=== PATIENT | male | born 1950 | race Caucasian/White ===

== ENCOUNTER 2016-08-17 10:41 | Emergency (ER) | payer MEDICARE ==
[2016-08-17 10:58] VITALS: RESP 18
--- NOTE | 2016-08-17 11:22 | ED ---
General Adult HPI - General Chief complaint: Back Pain/Injury Stated complaint: Back pain Time Seen by Provider: 08/17/16 11:10 Source: patient, family, RN notes reviewed Mode of arrival: ambulatory Limitations: no limitations - History of Present Illness Initial comments: Patient is a pleasant 66-year-old male presenting to the emergency department complaining of back pain. Onset of symptoms was yesterday morning. Symptoms were worse this morning. Symptoms are positional. Discomfort is mid lower back. No trauma. No hematuria. Patient states there has been a minimal odor to his urine over the past week. No fevers. No abdominal discomfort. No constipation or diarrhea. - Related Data Home Medications Medication Instructions Recorded Confirmed Allopurinol 300 mg PO DAILY 12/18/13 08/17/16 Lisinopril 10 mg PO HS 12/18/13 08/17/16 Folic Acid 1 mg PO HS 08/17/16 08/17/16 Ibuprofen [Motrin] 400 mg PO Q6HR PRN 08/17/16 08/17/16 Methotrexate Sodium [Methotrexate] 12.5 mg PO MANCUSO 08/17/16 08/17/16 Simvastatin [Zocor] 20 mg PO HS 08/17/16 08/17/16 amLODIPine [Norvasc] 5 mg PO DAILY 08/17/16 08/17/16 Previous Rx's Medication Instructions Recorded traMADol HCl [Ultram] 50 mg PO Q6H PRN #20 tab 08/17/16 Allergies Allergy/AdvReac Type Severity Reaction Status Date / Time No Known Allergies Allergy Verified 08/17/16 11:12 Review of Systems ROS Statement: Those systems with pertinent positive or pertinent negative responses have been documented in the HPI. ROS Other: All systems not noted in ROS Statement are negative. Constitutional: Denies: fever Eyes: Denies: eye pain ENT: Denies: ear pain Respiratory: Denies: cough Cardiovascular: Denies: chest pain Endocrine: Denies: fatigue Gastrointestinal: Denies: abdominal pain Genitourinary: Denies: dysuria Musculoskeletal: Reports: back pain Skin: Denies: rash Neurological: Denies: weakness Past Medical History Past Medical History: Hyperlipidemia, Hypertension, Skin Disorder Additional Past Medical History / Comment(s): DIET CONTROLLED DIABETIC NO MEDS DOES'NT CHECK BLOOD SUGARS.GOUT, PSORIASIS, kidney stones History of Any Multi-Drug Resistant Organisms: None Reported Past Surgical History: Orthopedic Surgery, Tonsillectomy Additional Past Surgical History / Comment(s): SHATTERED RT KNEE CAP HAD SX HAD WIRES IN THEN HAD 2ND SX NOT SURE IF ALL WIRES STILL IN THERE. Past Anesthesia/Blood Transfusion Reactions: No Reported Reaction Past Psychological History: No Psychological Hx Reported Smoking Status: Never smoker Past Alcohol Use History: Occasional Past Drug Use History: None Reported - Past Family History Father Family Medical History: Coronary Artery Disease (CAD), Myocardial Infarction ([place] ) Additional Family Medical History / Comment(s): AGE 66 MASSIVE [place] Mother Additional Family Medical History / Comment(s): ETOH ABUSE OF CHIRROSIS AT AGE 68 General Exam Limitations: no limitations General appearance: alert, in no apparent distress Head exam: Present: atraumatic Eye exam: Present: normal appearance, PERRL ENT exam: Present: normal oropharynx Neck exam: Present: normal inspection Respiratory exam: Present: normal lung sounds bilaterally Cardiovascular Exam: Present: regular rate, normal rhythm Expanded Peripheral pulses: 2+: Dorsalis Pedis (R), Dorsalis Pedis (L) GI/Abdominal exam: Present: soft, normal bowel sounds. Absent: distended, tenderness, guarding, rebound, rigid, pulsatile mass Extremities exam: Present: normal inspection, other (Straight leg raise mildly positive bilateral around 50) Back exam: Present: normal inspection. Absent: tenderness, CVA tenderness (R), CVA tenderness (L) Neurological exam: Present: alert. Absent: motor sensory deficit Psychiatric exam: Present: normal affect, normal mood Skin exam: Absent: rash Course Vital Signs 08/17/16 10:56 Temperature 98.7 F Pulse Rate 69 Respiratory 18 Rate Blood Pressure 183/93 O2 Sat by Pulse 98 Oximetry Medical Decision Making - Medical Decision Making Patient reevaluated and resting comfortably in bed. Patient and family are updated on results and need for follow-up. - Lab Data Lab Results 08/17/16 Range/Units 12:30 Urine Color Light Yellow Urine Appearance Clear (Clear) Urine pH 6.5 (5.0-8.0) Ur Specific [place] 1.006 (1.001-1.035) Urine Protein Negative (Negative) Urine Glucose (UA) Negative (Negative) Urine Ketones Negative (Negative) Urine Blood Negative (Negative) Urine Nitrite Negative (Negative) Urine Bilirubin Negative (Negative) Urine Urobilinogen <2.0 (<2.0) mg/dL Ur Leukocyte Esterase Negative (Negative) - Radiology Data Radiology results: report reviewed (Abdominal ultrasound shows no greater than 3 cm aortic enlargement.), image reviewed (Lumbar spine x-ray shows multilevel degeneration. No compression or collapse or malalignment.) Disposition Clinical Impression: Low back pain Disposition: HOME SELF-CARE Condition: Stable Instructions: Acute Low Back Pain (ED) Additional Instructions: Please follow-up with your doctor in the next couple of days for recheck. Return for weakness, loss of control of bowel or bladder, uncontrolled pain, worsening symptoms or other concerns. [id number] Motrin as needed Prescriptions: traMADol HCl [Ultram] 50 mg PO Q6H PRN #20 tab PRN Reason: Pain/Discomfort Referrals: Ang Horta MD [Primary Care Provider] - 1-2 days Time of Disposition: 13:41
[2016-08-17] MEDS: MORPHINE SULFATE 10 MG/ML SYRINGE IM STA (11:54)
--- NOTE | 2016-08-17 12:04 | US ---
EXAMINATION TYPE: US duplex aorta DATE OF EXAM: 08/17/2016 11:56 AM COMPARISON: CT on PACS April 18, 2015 CLINICAL HISTORY: Pain. EC patient with low back pain today EXAM MEASUREMENTS: Abdominal Aorta: Proximal: 2.5cm transverse by 1.9 cm AP Mid: 2.2cm transverse by 2.0 cm AP Distal: 1.9cm A/P by 1.9 cm AP Bifurcation: 1.8cm A/P right and 1.4cm A/P left Mild intimal wall thickening noted proximal REMY. IMPRESSION: No ultrasound evidence for greater than 3 cm abdominal aortic aneurysm
[2016-08-17 12:48] LABS: Appearance,Urine Clear (Clear); Bilirubin,Urine Negative (Negative); Glucose,Urine (UA) Negative (Negative); Ketones,Urine Negative (Negative); Leukocyte Esterase,Urine Negative (Negative); Nitrite,Urine Negative (Negative); PH, Urine 6.5 (5.0-8.0); Protein,Urine Negative (Negative); Specific Gravity,Urine 1.006 (1.001-1.035); UA Billing (MACRO vs. MICRO) CHEM; Urobilinogen,Urine <2.0 mg/dL (<2.0)
--- NOTE | 2016-08-17 12:49 | XR ---
EXAMINATION TYPE: XR lumbar spine 2 or 3V DATE OF EXAM: 08/17/2016 12:40 PM COMPARISON: NONE HISTORY: 66-year-old male low back pain since this morning TECHNIQUE: 3 views FINDINGS: 5 lumbar type vertebral bodies. Vertebral body heights are preserved. Alignment is maintained. Mild m ultilevel degenerative disc disease with disc space narrowing and mild endplate spondylosis. Facet ar thropathy lower lumbar spine. IMPRESSION: Mild multilevel degenerative disc disease and facet arthropathy. No vertebral compression collapse or malalignment.
[2016-08-17 14:06] VITALS: BP 160/88; PULSE 59; TEMP 978
== END 2016-08-17 14:04 | disposition home or self-care (01) ==
LOC: EC 10:41
DX: M51.36 Other intervertebral disc degeneration, lumbar region (principal); I77.89 Other specified disorders of arteries and arterioles; I10 Essential (primary) hypertension; E78.5 Hyperlipidemia, unspecified; M10.9 Gout, unspecified; Z87.442 Personal history of urinary calculi; Z86.2 Personal history of diseases of the blood and blood-forming organs and certain disorders involving the immune mechanism; Z79.899 Other long term (current) drug therapy
CPT/HCPCS: 81003; 87086; 87077; 87186; 72100; 93979; 99284; 96372; J2270

== ENCOUNTER → 2020-05-07 | Outpatient (CLI) | payer MEDICARE ==
[2020-05-07 11:14] LABS: Basophils % (A) 1 %; Eosinophils # (A) 0.2 k/uL (0-0.7); Eosinophils % (A) 6 %; HGB 13.2 gm/dL (13.0-17.5); Lymphocytes # (A) 0.7 k/uL (1.0-4.8); Lymphocytes % (A) 22 %; MCHC 33.9 g/dL (31.0-37.0); MCV 94.4 fL (80.0-100.0); Mean Platelet Volume 7.7; Monocytes # (A) 0.3 k/uL (0-1.0); Monocytes % (A) 8 %; Neutrophils # (A) 1.9 k/uL (1.3-7.7); Neutrophils % (A) 59 %; Platelet Count 118 k/uL (150-450); RBC 4.13 m/uL (4.30-5.90); RDW 15.3 % (11.5-15.5); WBC 3.2 k/uL (3.8-10.6)
[2020-05-07 12:09] LABS: African American GFR (CKD) >90 (>60 ml/min/1.73 sqM); Anion Gap 6 mmol/L; Blood Urea Nitrogen 23 mg/dL (9-20); Calcium 9.7 mg/dL (8.4-10.2); Carbon Dioxide 29 mmol/L (22-30); Chloride 103 mmol/L (98-107); Glucose 235 mg/dL (74-99); Non-African American GFR(CKD) 83 (>60 ml/min/1.73 sqM); Potassium 4.5 mmol/L (3.5-5.1); Sodium 138 mmol/L (137-145)
== END | disposition home or self-care (01) ==
LOC: LABPAT 10:25
PROVIDERS: ATTEND Urology
DX: Z01.818 Encounter for other preprocedural examination (principal); D49.4 Neoplasm of unspecified behavior of bladder; I10 Essential (primary) hypertension; R31.29 Other microscopic hematuria
CPT/HCPCS: 80048; 85025; 93005

== ENCOUNTER 2020-05-28 08:10 | Inpatient (IN) | payer MEDICARE ==
--- NOTE | 2020-05-24 07:59 | P.GSHP ---
History of Present Illness H&P Date: 05/23/20 Chief Complaint: Gross hematuria The patient is a 70-year-old white male hospitalized in late March 2020 with COVID-19 pneumonia. He has a history of kidney stones. He had developed increased urinary frequency, without dysuria or hematuria. A CT scan of the abdomen and pelvis on 04/06/2020 revealed a 5.6 cm exophytic right renal cyst was smaller adjacent cysts. He developed gross hematuria during that hospitalization, and follow-up cystoscopy in the office revealed multiple posterior bladder wall tumors. - Constitutional Constitutional: Reports weight loss - Genitourinary (Male) Genitourinary: Reports hematuria, Reports urinary frequency Past Medical History Past Medical History: GERD/Reflux, Hyperlipidemia, Hypertension, Pneumonia, Prostate Disorder, Skin Disorder Additional Past Medical History / Comment(s): DIET CONTROLLED DIABETIC NO MEDS DOES'NT CHECK BLOOD SUGARS.GOUT, PSORIASIS, kidney stones, uses oxygen 2L PRN, frquent urination, bladder tumor, pt states had COVID Thanks2019 History of Any Multi-Drug Resistant Organisms: None Reported Past Surgical History: Heart Catheterization, Orthopedic Surgery, Tonsillectomy Additional Past Surgical History / Comment(s): SHATTERED RT KNEE CAP HAD SX HAD WIRES IN THEN HAD 2ND SX NOT SURE IF ALL WIRES STILL IN THERE. heart cath 12/24/13 noted in EMR Past Anesthesia/Blood Transfusion Reactions: No Reported Reaction Smoking Status: Never smoker - Past Family History Father Family Medical History: Coronary Artery Disease (CAD), Myocardial Infarction ([place]) Additional Family Medical History / Comment(s): AGE 66 MASSIVE [place] Mother Family Medical History: No Reported History Additional Family Medical History / Comment(s): . Medications and Allergies Home Medications Medication Instructions Recorded Confirmed Type Allopurinol 300 mg PO DAILY 12/18/13 05/22/20 History Folic Acid 1 mg PO HS 08/17/16 05/22/20 History Simvastatin [Zocor] 20 mg PO HS 08/17/16 05/22/20 History amLODIPine [Norvasc] 5 mg PO DAILY 08/17/16 05/22/20 History metHOTREXate sodium [Methotrexate] 12.5 mg PO MANCUSO 08/17/16 05/22/20 History Albuterol Sulfate [Proair 1 puff PO BID 05/22/20 05/22/20 History Respiclick] Multivitamins, Thera [Multivitamin 1 tab PO DAILY 05/22/20 05/22/20 History (formulary)] lisinopriL [Zestril] 30 mg PO W/SUPPER 05/22/20 05/22/20 History Allergies Allergy/AdvReac Type Severity Reaction Status Date / Time No Known Allergies Allergy Verified 05/22/20 09:08 Surgical - Exam - General well developed, well nourished, no distress - Respiratory normal respiratory effort, clear to auscultation - Cardiovascular Rhythm: regular Abnormal Heart Sounds: no systolic murmur, no diastolic murmur, no rub, no S3 Gallop, no S4 Gallop, no click, no other - Genitourinary normal penis with no external lesions, testicles non-tender - Psychiatric oriented to time, oriented to person, oriented to place, speech is normal, memory intact Results - Imaging CT scan - abdomen: report reviewed, image reviewed Assessment and Plan (1) Neoplasm of unspecified behavior of bladder Status: Acute Code(s): D49.4 - NEOPLASM OF UNSPECIFIED BEHAVIOR OF BLADDER SNOMED Code(s): 745824203 Plan: Cystoscopy, TURBT. The procedure has been reviewed in detail with the patient. He has been made aware of potential risks, which include anesthesia, bleeding, infection, and bladder perforation.
[~2020-05-28 08:10] MED LIST: DEXAMETHASONE SOD PHOSPHATE 4 MG/ML 1 ML VIAL IV ONE; HYDROmorphone 0.5 MG/0.5 ML SYRINGE IVP PRN; LIDOCAINE 1% (10MG/ML) FOR IV START INTRADERMA PRN; ONDANSETRON 4 MG/2 ML VIAL IVP ONE
[2020-05-28 09:17] LABS: Glucose,Whole Blood 219 mg/dL (75-99)
[2020-05-28] MEDS: LACTATED RINGERS 1,000 ML IV SCH ×2 (09:23→15:53)
[2020-05-28] MEDS ORDERED: INSULIN ASPART (NovoLOG) 100 UNIT/ML VIAL SQ ONE ×2 (09:24→17:06)
[2020-05-28 09:33] LABS: Basophils % (A) 0 %; Eosinophils # (A) 0.1 k/uL (0-0.7); Eosinophils % (A) 1 %; HCT 42.3 % (39.0-53.0); HGB 14.1 gm/dL (13.0-17.5); Lymphocytes # (A) 1.1 k/uL (1.0-4.8); Lymphocytes % (A) 10 %; MCHC 33.2 g/dL (31.0-37.0); MCV 93.2 fL (80.0-100.0); Mean Platelet Volume 7.9; Monocytes # (A) 0.5 k/uL (0-1.0); Monocytes % (A) 5 %; Neutrophils # (A) 9.5 k/uL (1.3-7.7); Neutrophils % (A) 84 %; RBC 4.54 m/uL (4.30-5.90); RDW 15.7 % (11.5-15.5); WBC 11.3 k/uL (3.8-10.6)
[2020-05-28 09:38] LABS: Platelet Count 243 k/uL (150-450)
[2020-05-28 09:44] LABS: INR 0.9 (<1.2); Prothrombin Time 9.6 sec (9.0-12.0)
[2020-05-28] MEDS ORDERED: MIDAZOLAM 2 MG/2 ML VIAL ONE (09:45)
[2020-05-28 09:50] LABS: Partial Thromboplastin Time 20.9 sec (22.0-30.0)
[2020-05-28 10:17] LABS: Glucose,Whole Blood 192 mg/dL (75-99)
[2020-05-28] MEDS ORDERED: DILTIAZEM DRIP BOLUS FROM BAG 1 MG SOLN IV ONE (14:43)
[2020-05-28] MEDS ORDERED: HEPARIN SODIUM,PORCINE 5,000 UNIT/ML 1 ML VIAL IV ONE (14:48)
[2020-05-28] MEDS ORDERED: HEPARIN SODIUM,PORCINE 5,000 UNIT/ML 1 ML VIAL IV PRN (14:48)
[2020-05-28] MEDS ORDERED: DILTIAZEM 125 MG in SODIUM CHLORIDE 0.9% 100 ML IV SCH (15:00)
[2020-05-28] MEDS ORDERED: HEPARIN SOD,PORK IN 0.45% NACL 25,000 UNIT in 0.45% NACL 1 250ML.BAG IV SCH (15:00)
--- NOTE | 2020-05-28 15:12 | P.CRDCN ---
History of Present Illness Consult date: 05/28/20 History of present illness: CHIEF COMPLAINT: New onset A. fib with RVR HISTORY OF PRESENT ILLNESS: This is a 70-year-old male with a past medical history significant for hypertension, hyperlipidemia, and Covid pneumonia in Mar. Patient does not follow with a transplant nurse practitioner. We have been asked to see the patient in consultation for new onset atrial fibrillation with RVR. Patient underwent cystoscopy with Dr. Kaiser in the office which revealed multiple posterior bladder wall tumors. The patient also has a history of gross hematuria. No gross hematuria noted at this time. Patient was scheduled for TURP today with Dr. Kaiser. He was found to be in atrial fibrillation with RVR. His procedure was cancelled and he was admitted to the cardiac stepdown unit for further evaluation. Patient examined at the bedside this afternoon. He denies chest pain or pressure. He denies shortness of breath. He denies palpitations. He remains in atrial fibrillation with RVR with heart rate in the 120-130s. Blood pressure 108/64. DIAGNOSTICS: EKG reveals atrial fibrillation with RVR Laboratory data: WBC 13.3. Hemoglobin 14.1. Platelet count 243. Current home cardiac medications include lisinopril 30 mg daily, Norvasc 5 mg daily, Zocor 20 mg daily REVIEW OF SYSTEMS: At the time of my exam: CONSTITUTIONAL: Denies fever or chills. HEENT: Denies blurred vision, vision changes, or eye pain. Denies hemoptysis CARDIOVASCULAR: Denies chest pain, orthopnea, PND or palpitations RESPIRATORY: No shortness of breath. GASTROINTESTINAL: Denies abdominal pain. Denies nausea or vomiting. HEMATOLOGIC: Denies bleeding disorders. GENITOURINARY: Denies any blood in urine. SKIN: Denies pruitis. Denies rash. PHYSICAL EXAM: VITAL SIGNS: Reviewed. GENERAL: Well-developed in no acute distress. HEENT: Head is normocephalic. Pupils are equal, round. Sclerae anicteric. Mucous membranes of the mouth are moist. Neck supple. No JVD or thyromegaly LUNGS: Respirations even and unlabored. Lungs essentially clear to auscultation bilaterally. HEART: Irregular rate and rhythm. S1 and S2 heard. ABDOMEN: Soft. Nondistended. Nontender. EXTREMITIES: Normal range of motion. No clubbing or cyanosis. Peripheral pulses intact. No lower extremity edema NEUROLOGIC: Awake and alert. Oriented x 3. ASSESSMENT: New onset atrial fibrillation with RVR Bladder cancer, patient was scheduled for TURP today Hypertension Hyperlipidemia History of Covid March 2020 History of gross hematuria PLAN: Obtain 2-D echo to assess cardiac structure and function Begin IV Cardizem at 5 mg an hour with 5 mg bolus Begin metoprolol 25 mg BID Check TSH Case discussed with Dr. Kaiser. Patient will not have TURP during this hospita lization and will be rescheduled for TURP at a later date Patient at higher risk of bleeding with anticoagulation due to bladder cancer and history of gross hematuria. Will begin low dose IV heparin. Monitor hemoglobin and monitor for hematuria. If any signs of bleeding develop, discontinue IV heparin Further recommendations pending patient course Nurse practitioner note has been reviewed by physician. Signing provider agrees with the documented findings, assessment, and plan of care. Past Medical History Past Medical History: GERD/Reflux, Hyperlipidemia, Hypertension, Pneumonia, Prostate Disorder, Skin Disorder Additional Past Medical History / Comment(s): DIET CONTROLLED DIABETIC NO MEDS DOES'NT CHECK BLOOD SUGARS.GOUT, PSORIASIS, kidney stones, uses oxygen 2L PRN, frquent urination, bladder tumor, pt states had COVID 2019 History of Any Multi-Drug Resistant Organisms: None Reported Past Surgical History: Heart Catheterization, Orthopedic Surgery, Tonsillectomy Additional Past Surgical History / Comment(s): SHATTERED RT KNEE CAP HAD SX HAD WIRES IN THEN HAD 2ND SX NOT SURE IF ALL WIRES STILL IN THERE. heart cath 12/24/13 noted in EMR Past Anesthesia/Blood Transfusion Reactions: No Reported Reaction Smoking Status: Never smoker - Past Family History Father Family Medical History: Coronary Artery Disease (CAD), Myocardial Infarction ([place]) Additional Family Medical History / Comment(s): AGE 66 MASSIVE [place] Mother Family Medical History: No Reported History Additional Family Medical History / Comment(s): . Medications and Allergies Home Medications Medication Instructions Recorded Confirmed Type Allopurinol 300 mg PO DAILY 12/18/13 05/22/20 History Folic Acid 1 mg PO HS 08/17/16 05/22/20 History Simvastatin [Zocor] 20 mg PO HS 08/17/16 05/22/20 History amLODIPine [Norvasc] 5 mg PO DAILY 08/17/16 05/22/20 History metHOTREXate sodium [Methotrexate] 12.5 mg PO MANCUSO 08/17/16 05/22/20 History Albuterol Sulfate [Proair 1 puff PO BID 05/22/20 05/22/20 History Respiclick] Multivitamins, Thera [Multivitamin 1 tab PO DAILY 05/22/20 05/22/20 History (formulary)] lisinopriL [Zestril] 30 mg PO W/SUPPER 05/22/20 05/22/20 History Allergies Allergy/AdvReac Type Severity Reaction Status Date / Time No Known Allergies Allergy Verified 05/28/20 08:40 Physical Exam Vitals: Vital Signs Temp Pulse Resp BP BP BP Pulse Ox 05/28/20 13:14 98.9 F 131 H 18 108/64 95 05/28/20 12:35 122 H 14 117/81 93 L 05/28/20 12:05 113 H 16 123/84 95 05/28/20 11:45 117 H 14 120/82 93 L 05/28/20 11:30 130 H 18 126/76 94 L 05/28/20 11:11 129 H 18 135/84 95 05/28/20 10:54 120 H 16 122/70 95 05/28/20 10:40 128 H 18 138/90 96 05/28/20 10:28 118 H 16 126/85 95 05/28/20 10:18 98 16 99/64 98 05/28/20 10:04 129 H 16 120/67 96 05/28/20 08:48 98.3 F 58 L 16 157/70 97 Intake and Output 05/27/20 05/28/20 05/28/20 22:59 06:59 14:59 Intake Total 836 Output Total 375 Balance 461 Intake: IV 600 Oral 236 Output: Urine 375 Other: Weight 68.4 kg Results 05/28/20 09:16 Coagulation 05/28/20 Range/Units 09:16 PT 9.6 (9.0-12.0) sec APTT 20.9 L (22.0-30.0) sec CBC 05/28/20 Range/Units 09:16 WBC 11.3 H (3.8-10.6) k/uL RBC 4.54 (4.30-5.90) m/uL Hgb 14.1 (13.0-17.5) gm/dL Hct 42.3 (39.0-53.0) % Plt Count 243 D (150-450) k/uL Current Medications Generic Name Dose Route Start Last Admin Trade Name Freq PRN Reason Stop Dose Admin Atorvastatin Calcium 10 mg 05/28/20 21:00 Atorvastatin 10 Mg Tab PO HS SCARLETT Heparin Sodium (Porcine) 0 unit 05/28/20 14:48 Heparin Sodium,Porcine 5,000 Unit/Ml 1 Ml Vial IV PER PROTOCOL PRN Low PTT Protocol Hydromorphone HCl 0.5 mg 05/28/20 07:00 Hydromorphone 0.5 Mg/0.5 Ml Syringe IVP 05/28/20 23:00 Q5M PRN Pain Control Cefazolin Sodium 2 gm/ Sodium 50 mls @ 100 mls/hr 05/28/20 05:00 Chloride IVPB 05/29/20 00:01 ONCE PRN pre-op Lactated Ringer's 1,000 mls @ 20 mls/hr 05/28/20 06:45 05/28/20 09:23 Lactated Ringers IV 06/27/20 06:46 600 mls .Q24H SCARLETT Administration Diltiazem HCl 125 mg/ Sodium 125 mls @ 5 mls/hr 05/28/20 15:00 Chloride IV .Q24H SCARLETT 5 MG/HR Heparin Sodium/Sodium Chloride 250 mls @ 8.208 mls/hr 05/28/20 15:00 25,000 unit/ Sodium Chloride IV .Q24H SCARLETT Protocol 12 UNITS/KG/HR Lidocaine HCl 0.1 ml 05/28/20 06:45 05/28/20 09:24 Lidocaine 1% (10mg/Ml) For Iv Start INTRADERMA 06/27/20 06:46 0.1 ml PER PROTOCOL PRN Administration IV Start Lisinopril 30 mg 05/28/20 17:30 Lisinopril 10 Mg Tab PO W/SUPPER SCARLETT Metoprolol Tartrate 25 mg 05/28/20 14:44 Metoprolol Tartrate 25 Mg Tab PO BID SCARLETT Intake and Output 05/27/20 05/28/20 05/28/20 22:59 06:59 14:59 Intake Total 836 Output Total 375 Balance 461 Intake: IV 600 Oral 236 Output: Urine 375 Other: Weight 68.4 kg Patient Weight 05/29/20 06:59 Weight 68.4 kg 05/28/20 09:16
[2020-05-28] MEDS: METOPROLOL TARTRATE 25 MG TAB PO SCH ×2 (15:32→21:01)
[2020-05-28 16:58] LABS: Glucose,Whole Blood 419 mg/dL (75-99)
[2020-05-28] MEDS ORDERED: lisinopriL 10 MG TAB PO SCH (17:30)
[2020-05-28] MEDS: INSULIN ASPART (NovoLOG) 100 UNIT/ML VIAL SQ SCH ×2 (17:52→21:01)
[2020-05-28] MEDS ORDERED: INSULIN DETEMIR (LEVEMIR) 100 UNIT/ML SYR SQ SCH ×2 (18:00→20:00)
[2020-05-28] MEDS: ALBUTEROL NEBULIZED 2.5 MG/3 ML INHALATION SCH (19:15)
--- NOTE | 2020-05-28 20:27 | P.HPIM ---
History of Present Illness H&P Date: 05/28/20 Chief Complaint: Rapid heart rate History of presenting complaint: This is a very pleasant 70-year-old patient of Dr. Horta. Chronic stable medical conditions include GERD, hypertension, hyperlipidemia, kidney stones,. Patient had COVID 19 infection around [facility] last year. Patient has known kidney stones. Patient had a computed tomography scan of the abdomen and pelvis on 04/06/2020 showed a 5.6 cm exophytic right renal cyst. Subsequently developed gross hematuria. Cystoscopy in the office revealed multiple posterior bladder wall tumors. Patient was now brought in outpatient center for further cystoscopy with removal of tumor. In the preop area patient is found to be in atrial fibrillation with a rapid ventricular rate. Patient denies any chest pa in or shortness of breath. Admitted to the cardiology floor. Started IV Cardizem drip. Also Lopressor. Review of systems: GEN.: None EYES: None HEENT: None NECK: None RESPIRATORY: None CARDIOVASCULAR: None GASTROINTESTINAL: None GENITOURINARY: History of hematuria MUSCULOSKELETAL: [Joint pains LYMPHATICS: None HEMATOLOGICAL: None PSYCHIATRY: None NEUROLOGICAL: None Past medical history to include: GERD, hyperlipidemia, hypertension, prostate disorder, right controlled diabetes, psoriasis, gout, kidney stones, bladder tumor, COVID 19 around 2019 Social history: . No smoking. Alcohol rarely. Physical examination: VITAL SIGNS: 98.9, 131, 18, 108/64, 95% room air GENERAL: BMI 24.3, sitting up in bed, eating his supper. EYES: Pupils equal. Conjunctiva normal. HEENT: External appearance of nose and ears normal, oral cavity grossly normal. NECK: JVD not raised; masses not palpable. HEART: Irregular heart sounds; no edema. LUNGS: Respiratory rate normal; clear to auscultation. ABDOMEN: Soft, nontender, liver spleen not palpable, no masses palpable. PSYCH: Alert and oriented x3; mood and affect normal. NEUROLOGICAL: Cranial nerves grossly intact; no facial asymmetry, power and sensation grossly intact. LYMPHATICS: No lymph nodes palpable in the axilla and neck INVESTIGATIONS, reviewed in the clinical context: White count 9.3 hemoglobin 14.1 platelets 243 Accu-Cheks 219, 192, 419 Telemetry atrial fibrillation with a rapid ventricular rate Assessment: -Incidental finding of atrial fibrillation with a rapid ventricular rate. Patient has been asymptomatic. -GERD -Essential hypertension -Prostate disorder -Diet controlled diabetes. Currently uncontrolled with hypoglycemia from patient earlier received a dose of dexamethasone -Psoriasis -Kidney stones -Bladder tumor pending surgical removal Plan: Patient's blood IV heparin. IV Cardizem drip. Lopressor 25 mg twice a day. If patient's heart rate is well-controlled by tomorrow morning she should be able to go down for surgery. I spoke to Dr. Angeles on the phone. Cardiology was consulted. 2-D echocardiogram. Home medications to be resumed. Past Medical History Past Medical History: GERD/Reflux, Hyperlipidemia, Hypertension, Pneumonia, Prostate Disorder, Skin Disorder Additional Past Medical History / Comment(s): DIET CONTROLLED DIABETIC NO MEDS DOES'NT CHECK BLOOD SUGARS.GOUT, PSORIASIS, kidney stones, uses oxygen 2L PRN, frquent urination, bladder tumor, pt states had COVID Thanks2019 History of Any Multi-Drug Resistant Organisms: None Reported Past Surgical History: Heart Catheterization, Orthopedic Surgery, Tonsillectomy Additional Past Surgical History / Comment(s): SHATTERED RT KNEE CAP HAD SX HAD WIRES IN THEN HAD 2ND SX NOT SURE IF ALL WIRES STILL IN THERE. heart cath 12/24/13 noted in EMR Past Anesthesia/Blood Transfusion Reactions: No Reported Reaction Past Psychological History: No Psychological Hx Reported Smoking Status: Never smoker Past Alcohol Use History: Rare Past Drug Use History: None Reported - Past Family History Father Family Medical History: Coronary Artery Disease (CAD), Myocardial Infarction ([place]) Additional Family Medical History / Comment(s): AGE 66 MASSIVE [place] Mother Family Medical History: No Reported History, Diabetes Mellitus Additional Family Medical History / Comment(s): covid 19 last thanksgi Medications and Allergies Home Medications Medication Instructions Recorded Confirmed Type Allopurinol 300 mg PO DAILY 12/18/13 05/22/20 History Folic Acid 1 mg PO HS 08/17/16 05/22/20 History Simvastatin [Zocor] 20 mg PO HS 08/17/16 05/22/20 History amLODIPine [Norvasc] 5 mg PO DAILY 08/17/16 05/22/20 History metHOTREXate sodium [Methotrexate] 12.5 mg PO MANCUSO 08/17/16 05/22/20 History Albuterol Sulfate [Proair 1 puff PO BID 05/22/20 05/22/20 History Respiclick] Multivitamins, Thera [Multivitamin 1 tab PO DAILY 05/22/20 05/22/20 History (formulary)] lisinopriL [Zestril] 30 mg PO W/SUPPER 05/22/20 05/22/20 History Allergies Allergy/AdvReac Type Severity Reaction Status Date / Time No Known Allergies Allergy Verified 05/28/20 08:40 Physical Exam Vitals: Vital Signs Temp Pulse Pulse Resp BP BP BP 05/28/20 19:24 84 05/28/20 19:17 81 05/28/20 16:00 81 16 105/66 05/28/20 13:14 98.9 F 131 H 18 108/64 05/28/20 12:35 122 H 14 117/81 05/28/20 12:05 113 H 16 123/84 05/28/20 11:45 117 H 14 120/82 05/28/20 11:30 130 H 18 126/76 05/28/20 11:11 129 H 18 135/84 05/28/20 10:54 120 H 16 122/70 05/28/20 10:40 128 H 18 138/90 05/28/20 10:28 118 H 16 126/85 05/28/20 10:18 98 16 99/64 05/28/20 10:04 129 H 16 120/67 05/28/20 08:48 98.3 F 58 L 16 157/70 Pulse Ox 05/28/20 19:24 05/28/20 19:17 05/28/20 16:00 94 L 05/28/20 13:14 95 05/28/20 12:35 93 L 05/28/20 12:05 95 05/28/20 11:45 93 L 05/28/20 11:30 94 L 05/28/20 11:11 95 05/28/20 10:54 95 05/28/20 10:40 96 05/28/20 10:28 95 05/28/20 10:18 98 05/28/20 10:04 96 05/28/20 08:48 97 Intake and Output 05/28/20 05/28/20 05/28/20 06:59 14:59 22:59 Intake Total 836 Output Total 375 150 Balance 461 -150 Intake: IV 600 Oral 236 Output: Urine 375 150 Other: # Voids 2 Weight 68.4 kg 68.4 kg Results CBC & Chem 7: 05/28/20 09:16 Labs: Abnormal Lab Results - Last 24 Hours (Table) 05/28/20 05/28/20 05/28/20 Range/Units 09:16 09:16 09:16 WBC 11.3 H (3.8-10.6) k/uL RDW 15.7 H (11.5-15.5) % Neutrophils # 9.5 H (1.3-7.7) k/uL APTT 20.9 L (22.0-30.0) sec POC Glucose (mg/dL) 219 H (75-99) mg/dL 05/28/20 05/28/20 Range/Units 10:14 16:55 WBC (3.8-10.6) k/uL RDW (11.5-15.5) % Neutrophils # (1.3-7.7) k/uL APTT (22.0-30.0) sec POC Glucose (mg/dL) 192 H 419 H (75-99) mg/dL Thrombosis Risk Factor Assmnt - Choose All That Apply Each Risk Factor Represents 2 Points: Age 61-74 years Thrombosis Risk Factor Assessment Total Risk Factor Score: 2 Thrombosis Risk Factor Assessment Level: Low Risk
[2020-05-28 20:49] LABS: Glucose,Whole Blood 137 mg/dL (75-99)
[2020-05-28] MEDS: ATORVASTATIN 10 MG TAB PO SCH (21:01)
[2020-05-28] MEDS: FOLIC ACID 1 MG TAB PO SCH (21:01)
[2020-05-29 00:08] LABS: T4, Free (Free Thyroxine) 1.36 ng/dL (0.78-2.19)
[2020-05-29 05:58] LABS: Glucose,Whole Blood 150 mg/dL (75-99)
[2020-05-29] MEDS: INSULIN ASPART (NovoLOG) 100 UNIT/ML VIAL SQ SCH ×4 (06:27→21:18)
[2020-05-29] MEDS: ALBUTEROL NEBULIZED 2.5 MG/3 ML INHALATION SCH ×2 (07:51→20:39)
[2020-05-29 08:09] LABS: Basophils % (A) 0 %; Eosinophils # (A) 0.1 k/uL (0-0.7); Eosinophils % (A) 0 %; HCT 39.5 % (39.0-53.0); HGB 13.5 gm/dL (13.0-17.5); Lymphocytes % (A) 7 %; MCH 31.6 pg (25.0-35.0); MCHC 34.2 g/dL (31.0-37.0); MCV 92.3 fL (80.0-100.0); Mean Platelet Volume 7.7; Monocytes # (A) 0.5 k/uL (0-1.0); Monocytes % (A) 4 %; Neutrophils # (A) 12.2 k/uL (1.3-7.7); Neutrophils % (A) 88 %; Platelet Count 223 k/uL (150-450); RBC 4.28 m/uL (4.30-5.90); RDW 15.3 % (11.5-15.5); WBC 13.9 k/uL (3.8-10.6)
[2020-05-29] MEDS: MULTIVITAMINS, THERA 1 EACH TAB PO SCH (09:04)
[2020-05-29] MEDS: allopurinoL 300 MG TAB PO SCH (09:05)
[2020-05-29] MEDS: METOPROLOL TARTRATE 25 MG TAB PO SCH ×3 (09:05→21:17)
--- NOTE | 2020-05-29 10:24 | ECHOF ---
Referral Reason:LV function MEASUREMENTS -------- HEIGHT: 167.6 cm WEIGHT: 65.8 kg BP: 102/65 RVIDd: 3.1 cm (< 3.3) IVSd: 1.4 cm (0.6 - 1.1) LVIDd: 3.7 cm (3.9 - 5.3) LVPWd: 1.4 cm (0.6 - 1.1) IVSs: 2.1 cm LVIDs: 2.3 cm LVPWs: 1.8 cm LA Diam: 4.3 cm (2.7 - 3.8) LAESV Index (A-L): 30.50 ml/m Ao Diam: 3.3 cm (2.0 - 3.7) AV Cusp: 2.4 cm (1.5 - 2.6) MV EXCURSION: 13.015 mm (> 18.000) MV EF SLOPE: 36 mm/s (70 - 150) EPSS: 0.7 cm AV maxP.39 mmHg AV meanP.54 mmHg AR PHT: 865 ms RAP: 5.00 mmHg RVSP: 28.31 mmHg FINDINGS -------- Atrial fibrillation. This was a technically adequate study. The left ventricular size is normal. There is moderate concentric left ventricular hypertrophy. O verall left ventricular systolic function is low-normal with, an EF between 50 - 55 %. The right ventricle is normal in size. LA is midly dilated 29-33ml/m2. The right atrial size is normal. Interatrial and interventricular septum intact. There is mild aortic valve sclerosis. There is mild aortic regurgitation. Moderate mitral annular calcification present. Mild mitral regurgitation is present. The tricuspid valve appears structurally normal. Moderate tricuspid regurgitation present. Right ventricular systolic pressure is normal at < 35 mmHg. The right ventricular systolic pressure, as m easured by Doppler, is 28.31mmHg. There is no pulmonic regurgitation present. The aortic root size is normal. Normal inferior vena cava with normal inspiratory collapse consistent with estimated right atrial pre ssure of 5 mmHg. There is no pericardial effusion. CONCLUSIONS -------- 1. There is moderate concentric left ventricular hypertrophy. 2. Overall left ventricular systolic function is low-normal with, an EF between 50 - 55 %. 3. LA is midly dilated 29-33ml/m2. 4. There is mild aortic valve sclerosis. 5. There is mild aortic regurgitation. 6. Moderate mitral annular calcification present. 7. Mild mitral regurgitation is present. 8. Moderate tricuspid regurgitation present. 9. There is no pericardial effusion. FLAG SIGNALMAN: Felisa Cramer RDCS
[2020-05-29 12:07] LABS: Glucose,Whole Blood 156 mg/dL (75-99)
--- NOTE | 2020-05-29 13:59 | P.PN ---
Subjective Progress Note Date: 05/29/20 CHIEF COMPLAINT: New onset A. fib with RVR HISTORY OF PRESENT ILLNESS: 05/28/2020 This is a 70-year-old male with a past medical history significant for hyperte nsion, hyperlipidemia, and Covid pneumonia in March 2020. Patient does not follow with a solar site assessment specialist. We have been asked to see the patient in consultation for new onset atrial fibrillation with RVR. Patient underwent cystoscopy with Dr. Kaiser in the office which revealed multiple posterior luis angel dder wall tumors. The patient also has a history of gross hematuria. No gross hematuria noted at this time. Patient was scheduled for TURP today with Dr. Kaiser. He was found to be in atrial fibrillation with RVR. His procedure was cancelled and he was admitted to the cardiac stepdown unit for further evaluation. Patient examined at the bedside this afternoon. He denies chest pain or pressure. He denies shortness of breath. He denies palpitations. He remains in atrial fibrillation with RVR with heart rate in the 120-130s. Blood pressure 108/64. 05/29/2020 Patient examined this morning at the bedside. He denies chest pain or pressure. He remains in atrial fibrillation. Heart rate is controlled in the 80s. He remains on an IV Cardizem drip. Blood pressure 112/75. Echocardiogram completed reveals ejection fraction 50-55%, mild aortic regurgitation, mild mitral regurgitation, and moderate tricuspid regurgitation PHYSICAL EXAM: VITAL SIGNS: Reviewed. GENERAL: Well-developed in no acute distress. HEENT: Head is normocephalic. Pupils are equal, round. Sclerae anicteric. Mucous membranes of the mouth are moist. Neck supple. No JVD or thyromegaly LUNGS: Respirations even and unlabored. Lungs essentially clear to auscultation bilaterally. HEART: Irregular rate and rhythm. S1 and S2 heard. ABDOMEN: Soft. Nondistended. Nontender. EXTREMITIES: Normal range of motion. No clubbing or cyanosis. Peripheral pulses intact. No lower extremity edema NEUROLOGIC: Awake and alert. Oriented x 3. ASSESSMENT: New onset atrial fibrillation with RVR Bladder cancer, patient was scheduled for TURP 05/28/2020 Hypertension Hyperlipidemia History of Covid March 2020 History of gross hematuria PLAN: Discontinue IV Cardizem Continue current dose of metoprolol Continue telemetry monitoring Case discussed with Dr. Kaiser yesterday who stated patient would have TURP performed at a later date. Patient states that Dr. Kaiser stopped in this morning and told the patient he was going to try to do his procedure today or tomorrow. We will continue IV heparin at this time in the event that patient has TURP performed Will send prescription for Eliquis to pharmacy. Consult case management to verify coverage of Eliquis Continue to monitor for hematuria. If any signs of bleeding develop, discontinue IV heparin Further recommendations pending patient course Nurse practitioner note has been reviewed by physician. Signing provider agrees with the documented findings, assessment, and plan of care. Objective - Vital Signs Vital signs: Vital Signs Temp 98.3 F 05/28/20 20:00 Pulse 78 05/29/20 12:00 Resp 16 05/29/20 12:00 BP 112/75 05/29/20 07:56 Pulse Ox 97 05/29/20 12:00 Intake & Output 05/28/20 05/29/20 05/29/20 18:59 06:59 18:59 Intake Total 836 54.857 Output Total 375 500 Balance 461 -445.143 Weight 68.4 kg 66 kg 66 kg Intake: IV 600 Intake, IV Titration 54.857 Amount Heparin Sod,Pork in 0.45% 54.857 NaCl 25,000 unit In 0.45 % NaCl 1 250ml.bag @ 12 UNITS/KG/HR 8.208 mls/hr IV .Q24H [facility] Rx#: [id number] Oral 236 Output: Urine 375 500 Other: # Voids 1 2 - Labs CBC & Chem 7: 05/29/20 07:46 Labs: Abnormal Lab Results - Last 24 Hours (Table) 05/28/20 05/28/20 05/28/20 Range/Units 16:55 20:48 21:20 WBC (3.8-10.6) k/uL RBC (4.30-5.90) m/uL Neutrophils # (1.3-7.7) k/uL APTT (22.0-30.0) sec POC Glucose (mg/dL) 419 H 137 H (75-99) mg/dL TSH 0.135 L (0.465-4.680) mIU/L 05/28/20 05/29/20 05/29/20 Range/Units 21:20 05:56 07:46 WBC 13.9 H (3.8-10.6) k/uL RBC 4.28 L (4.30-5.90) m/uL Neutrophils # 12.2 H (1.3-7.7) k/uL APTT 51.2 H (22.0-30.0) sec POC Glucose (mg/dL) 150 H (75-99) mg/dL TSH (0.465-4.680) mIU/L 05/29/20 05/29/20 Range/Units 07:46 12:05 WBC (3.8-10.6) k/uL RBC (4.30-5.90) m/uL Neutrophils # (1.3-7.7) k/uL APTT 53.2 H (22.0-30.0) sec POC Glucose (mg/dL) 156 H (75-99) mg/dL TSH (0.465-4.680) mIU/L
[2020-05-29] MEDS ORDERED: IV FLUID CONTINUATION 750 ML IV ONE (15:30)
[2020-05-29] MEDS ORDERED: ONDANSETRON 4 MG/2 ML VIAL ONE (15:42)
[2020-05-29 15:49] LABS: Glucose,Whole Blood 172 mg/dL (75-99)
[2020-05-29] MEDS ORDERED: ONDANSETRON 4 MG/2 ML VIAL IVP ONE (15:49)
[2020-05-29] MEDS ORDERED: DEXAMETHASONE SOD PHOSPHATE 4 MG/ML 1 ML VIAL IV ONE (15:49)
[2020-05-29] MEDS ORDERED: HYDROmorphone (PF) 1 MG/ML ONE (17:15)
[2020-05-29] MEDS ORDERED: LIDOCAINE 1% INJ 10MG/ML (20 ML MDV) ONE (17:15)
[2020-05-29] MEDS ORDERED: FUROSEMIDE 10 MG/ML 2 ML VIAL ONE (17:15)
[2020-05-29] MEDS ORDERED: fentaNYL (PF) 50 MCG/ML 2 ML AMP ONE (17:15)
[2020-05-29] MEDS ORDERED: PROPOFOL 10 MG/ML 20 ML VIAL IV ONE (17:15)
[2020-05-29] MEDS ORDERED: SUCCINYLCHOLINE CHLORIDE 100 MG/5 ML SYR IV ONE (17:15)
[2020-05-29] MEDS ORDERED: ROCURONIUM 10 MG/ML (10 ML VIAL) IV ONE (17:15)
[2020-05-29] MEDS ORDERED: PHENYLEPHRINE 10 MG/ML VIAL ONE (17:15)
[2020-05-29] MEDS ORDERED: MIDAZOLAM 2 MG/2 ML VIAL ONE (17:15)
--- NOTE | 2020-05-29 19:20 | P.OP ---
Date of Procedure: 05/29/20 Preoperative Diagnosis: Bladder tumors Postoperative Diagnosis: Bladder tumors, bulbous urethral stricture Procedure(s) Performed: Cystoscopy, direct visual internal ureterotomy (DVIU), TUR-BT (large) Anesthesia: SUSAN Surgeon: Prince Kaiser Estimated Blood Loss (ml): 30 IV fluids (ml): 500 Pathology: other (Tumor fragments, posterior bladder wall tumors and right lateral bladder wall tumors) Condition: stable Disposition: PACU Indications for Procedure: The patient is a 70-year-old white male hospitalized in late March 2020 with COVID-19 pneumonia. He has a history of kidney stones. He had developed increased urinary frequency, without dysuria or hematuria. A CT scan of the abdomen and pelvis on 04/06/2020 revealed a 5.6 cm exophytic right renal cyst was smaller adjacent cysts. He developed gross hematuria during that hospitalization, and follow-up cystoscopy in the office revealed multiple posterior bladder wall tumors. He now comes for resection. Planned surgery yesterday was canceled due to the fact that the patient developed atrial fibrillation. He was hospitalized overnight and now comes for surgery. Operative Findings: 1) Bulbous urethral stricture. 2) Multiple superficial tumors involving virtu ally the entire posterior bladder wall and right lateral bladder wall, extending to the right anterolateral bladder wall. Description of Procedure: The patient was taken in the operating room and placed in the dorsal lithotomy position, with his legs supported in Arnoldo stirrups. The external genitalia was prepped and draped sterilely. Then [place] sounds were used to dilate the urethral meatus. The 25-Serbian ACMI resectoscope sheath was introduced into the urethra under direct vision. A bulbous urethral stricture was identified. The visual urethrotome was used to incise the stricture at the 12 o'clock position. It was then possible to advance the resectoscope sheath into the bladder. The prostate was visually occluded, with a bilobar configuration. The bladder was inspected. The ureteral orifices could not be identified, as multiple tumors cover the entire bladder trigone and posterior bladder wall. Examination of the mucosa revealed changes suggestive of low-grade malignancy on the right lateral bladder wall, extending onto the right anterolateral bladder wall. The posterior bladder wall tumors had a low-grade, noninvasive appearance. Using the bipolar cutting loop, the tumors were resected down to the muscle. All visible tumor was resected. Excellent hemostasis was attained. The resected tissue was saved and sent for pathologic examination. The resection bed was fulgurated, though this was kept to a minimum in the anticipated location of the ureteral orifices. A 20-Serbian Ramírez catheter was inserted. The return was nehemiah ar. The patient tolerated the procedure well. He was taken to the recovery room in stable condition.
[2020-05-29 20:37] LABS: Glucose,Whole Blood 293 mg/dL (75-99)
--- NOTE | 2020-05-29 20:56 | P.PN ---
Progress Note - Text Progress Note Date: 05/29/20 Chief Complaint: Rapid heart rate History of presenting complaint: This is a very pleasant 70-year-old patient of Dr. Horta. Chronic stable medical conditions include GERD, hypertension, hyperlipidemia, kidney stones,. Patient had COVID 19 infection around [facility] last year. Patient has known kidney stones. Patient had a computed tomography scan of the abdomen and pelvis on 04/06/2020 showed a 5.6 cm exophytic right renal cyst. Subsequently developed gross hematuria. Cystoscopy in the office revealed multiple posterior bladder wall tumors. Patient was now brought in outpatient center for further cystoscopy with removal of tumor. In the preop area patient is found to be in atrial fibrillation with a rapid ventricular rate. Patient denies any chest pain or shortness of breath. Admitted to the cardiology floor. Started IV Cardizem drip. Also Lopressor. Today-heart rate controlled. So the patient this morning. Patient is due to go down later today to the OR. On IV heparin. Late in the day patient was taken down to the OR. Bladder tumor was resected down to the muscle. Review of systems: Was done for constitutional, cardiovascular, GI, pulmonary. relevant finding as above Active Medications Albuterol Sulfate (Albuterol Nebulized 2.5 Mg/3 Ml) 2.5 mg INHALATION RT-BID [facility] Last Admin: 05/29/20 20:39 Dose: 2.5 mg Documented by: Allopurinol (Allopurinol 300 Mg Tab) 300 mg PO DAILY [facility] Last Admin: 05/29/20 09:05 Dose: 300 mg Documented by: Atorvastatin Calcium (Atorvastatin 10 Mg Tab) 10 mg PO [facility] Last Admin: 05/28/20 21:01 Dose: 10 mg Documented by: Folic Acid (Folic Acid 1 Mg Tab) 1 mg PO [facility] Last Admin: 05/28/20 21:01 Dose: 1 mg Documented by: Heparin Sodium (Porcine) (Heparin Sodium,Porcine 5,000 Unit/Ml 1 Ml Vial) 0 unit IV PER PROTOCOL PRN; Protocol PRN Reason: Low PTT Lactated Ringer's (Lactated Ringers) 1,000 mls @ 20 mls/hr IV .Q24H [facility] Stop: 06/27/20 06:46 Last Admin: 05/28/20 15:53 Dose: 20 mls/hr Documented by: Insulin Aspart (Insulin Aspart (Novolog) 100 Unit/Ml Vial) 0 unit SQ ACHS [facility]; Protocol Last Admin: 05/29/20 16:27 Dose: Not Given Documented by: Lidocaine HCl (Lidocaine 1% (10mg/Ml) For Iv Start) 0.1 ml INTRADERMA PER PROTOCOL PRN PRN Reason: IV Start Stop: 06/27/20 06:46 Last Admin: 05/28/20 09:24 Dose: 0.1 ml Documented by: Lisinopril (Lisinopril 20 Mg Tab) 20 mg PO W/SUPPER [facility] Metoprolol Tartrate (Metoprolol Tartrate 25 Mg Tab) 25 mg PO TID [facility] Last Admin: 05/29/20 18:04 Dose: Not Given Documented by: Multivitamins (Multivitamins, Thera 1 Each Tab) 1 each PO DAILY [facility] Last Admin: 05/29/20 09:04 Dose: 1 each Documented by: Past medical history to include: GERD, hyperlipidemia, hypertension, prostate disorder, right controlled diabetes, psoriasis, gout, kidney stones, bladder tumor, COVID 19 around 2019 Social history: . No smoking. Alcohol rarely. Physical examination: VITAL SIGNS: Afebrile, 88, 16, 112/75, 99% on 2 L GENERAL: BMI 24.3, sitting up in bed, comfortable EYES: Pupils equal. Conjunctiva normal. HEENT: External appearance of nose and ears normal, oral cavity grossly normal. NECK: JVD not raised; masses not palpable. HEART: Irregular heart sounds; no edema. LUNGS: Respiratory rate normal; clear to auscultation. ABDOMEN: Soft, nontender, liver spleen not palpable, no masses palpable. PSYCH: Alert and oriented x3; mood and affect normal. INVESTIGATIONS, reviewed in the clinical context: May 29: White count of 13.9 hemoglobin 13.5 platelets 223 2-D echocardiogram-moderate concentric LVH, EF 50-55%, moderate mitral annual calcification moderate tricuspid regurgitation White count 9.3 hemoglobin 14.1 platelets 243 Accu-Cheks 219, 192, 419 Telemetry atrial fibrillation with a rapid ventricular rate Assessment: -Possibly persistent atrial fibrillation with a rapid ventricular rate. Patient has been asymptomatic. Now better controlled -GERD -Essential hypertension -Prostate disorder -Diet controlled diabetes. Currently uncontrolled with hypoglycemia from patient earlier received a dose of dexamethasone -Psoriasis -Kidney stones -Bladder tumor -status post resection -Moderate tricuspid regurgitation -Hypertensive heart disease Plan: Patient is currently on beta bo. Follow CBC. Accu-Cheks noted.
[2020-05-29] MEDS: lisinopriL 20 MG TAB PO SCH (21:14)
[2020-05-29] MEDS: FOLIC ACID 1 MG TAB PO SCH (21:17)
[2020-05-29] MEDS: ATORVASTATIN 10 MG TAB PO SCH (21:17)
[2020-05-30] MEDS: ACETAMINOPHEN TAB 325 MG TAB PO PRN (00:47)
[2020-05-30] MEDS: HYDROmorphone 1 MG/ML 1 ML SYRINGE IVP PRN ×5 (06:00→23:40)
[2020-05-30 06:26] LABS: Glucose,Whole Blood 319 mg/dL (75-99)
[2020-05-30] MEDS: INSULIN ASPART (NovoLOG) 100 UNIT/ML VIAL SQ SCH ×4 (06:45→20:44)
[2020-05-30 07:36] LABS: Basophils % (A) 0 %; Eosinophils % (A) 0 %; HCT 40.3 % (39.0-53.0); HGB 13.7 gm/dL (13.0-17.5); Lymphocytes # (A) 0.3 k/uL (1.0-4.8); Lymphocytes % (A) 2 %; MCH 31.4 pg (25.0-35.0); MCHC 33.9 g/dL (31.0-37.0); MCV 92.6 fL (80.0-100.0); Mean Platelet Volume 7.6; Monocytes # (A) 0.5 k/uL (0-1.0); Monocytes % (A) 3 %; Neutrophils # (A) 14.8 k/uL (1.3-7.7); Neutrophils % (A) 95 %; Platelet Count 269 k/uL (150-450); RBC 4.35 m/uL (4.30-5.90); RDW 15.2 % (11.5-15.5); WBC 15.7 k/uL (3.8-10.6)
[2020-05-30 07:41] LABS: Calcium 8.6 mg/dL (8.4-10.2); Potassium 5.2 mmol/L (3.5-5.1)
[2020-05-30] MEDS: ALBUTEROL NEBULIZED 2.5 MG/3 ML INHALATION SCH ×2 (08:51→20:25)
[2020-05-30] MEDS: METOPROLOL TARTRATE 25 MG TAB PO SCH ×3 (09:07→20:43)
[2020-05-30] MEDS: allopurinoL 300 MG TAB PO SCH (09:07)
[2020-05-30] MEDS: MULTIVITAMINS, THERA 1 EACH TAB PO SCH (09:07)
[2020-05-30] MEDS: LACTATED RINGERS 1,000 ML IV SCH (09:13)
--- NOTE | 2020-05-30 11:06 | P.PN ---
Subjective Progress Note Date: 05/30/20 Principal diagnosis: POD #1, s/p TUR-BT Mr. Burnham underwent bladder tumor resection yesterday. The tumors were very extensive and covered the entire posterior bladder wall, including the trigone. The ureteral orifices were not identified. The tumors more extensively involved the right bladder wall than the left bladder wall. This morning, he reported right flank pain. He also reports nausea. His serum creatinine level has increased to 1.37. All of this suggests the possibility of obstruction at the ureterovesical junction. Objective - Vital Signs Vital signs: Vital Signs Temp 97.8 F 05/30/20 08:00 Pulse 51 L 05/30/20 08:00 Resp 18 05/30/20 08:00 BP 105/70 05/30/20 08:00 Pulse Ox 96 05/30/20 08:00 Intake & Output 05/29/20 05/30/20 05/30/20 18:59 06:59 18:59 Intake Total 1100 0 Output Total 630 Balance 1100 -630 Weight 66 kg 64 kg Intake: IV 1100 0 Output: Urine 600 Estimated Blood Loss 30 Other: Voiding Method Indwelling Catheter # Voids 2 - Constitutional General appearance: Present: average body habitus, cooperative, mild distress - Gastrointestinal General gastrointestinal: Present: soft. Absent: distended, tenderness - Genitourinary Genitourinary Comment(s): Normal external genitalia. The Ramírez catheter is draining clear yellow urine. - Psychiatric Psychiatric: Present: A&O x's 3, appropriate affect - Labs CBC & Chem 7: 05/30/20 07:05 05/30/20 07:05 Labs: Abnormal Lab Results - Last 24 Hours (Table) 05/29/20 05/29/20 05/29/20 Range/Units 12:05 15:45 20:35 WBC (3.8-10.6) k/uL Neutrophils # (1.3-7.7) k/uL Lymphocytes # (1.0-4.8) k/uL Sodium (137-145) mmol/L Potassium (3.5-5.1) mmol/L Chloride (98-107) mmol/L BUN (9-20) mg/dL Creatinine (0.66-1.25) mg/dL Glucose (74-99) mg/dL POC Glucose (mg/dL) 156 H 172 H 293 H (75-99) mg/dL 05/30/20 05/30/20 05/30/20 Range/Units 06:24 07:05 07:05 WBC 15.7 H (3.8-10.6) k/uL Neutrophils # 14.8 H (1.3-7.7) k/uL Lymphocytes # 0.3 L (1.0-4.8) k/uL Sodium 129 L (137-145) mmol/L Potassium 5.2 H (3.5-5.1) mmol/L Chloride 96 L (98-107) mmol/L BUN 36 H (9-20) mg/dL Creatinine 1.37 H (0.66-1.25) mg/dL Glucose 315 H (74-99) mg/dL POC Glucose (mg/dL) 319 H (75-99) mg/dL Assessment and Plan (1) Neoplasm of unspecified behavior of bladder Current Visit: No Status: Acute Code(s): D49.4 - NEOPLASM OF UNSPECIFIED BEHAVIOR OF BLADDER SNOMED Code(s): 119629189 Plan: Renal ultrasound will be obtained to check for hydronephrosis. If this is present, he may require placement of a percutaneous nephrostomy tube with antegrade stent. It would be my preference that anticoagulants be held until this is clarified and resolved.
[2020-05-30 11:49] LABS: Glucose,Whole Blood 250 mg/dL (75-99)
[2020-05-30] MEDS: ONDANSETRON 4 MG/2 ML VIAL IVP PRN ×2 (13:27→20:43)
--- NOTE | 2020-05-30 13:28 | US ---
EXAMINATION TYPE: US kidneys/renal and bladder DATE OF EXAM: 05/30/2020 COMPARISON: NONE CLINICAL HISTORY: Flank pain. right flank pain EXAM MEASUREMENTS: Right Kidney: 11.3 x 5.4 x 5.1 cm Left Kidney: 10.5 x 4.9 x 4.2 cm Right Kidney: echogenic, thin renal cortex, 2 cystic areas lower pole = 5.4 x 5.4 x 5.0cm and 2.7 x 2 .0 x 2.0cm Left Kidney: echogenic, thin renal cortex Bladder: Ramírez Catheter IMPRESSION: Bilateral renal cysts
--- NOTE | 2020-05-30 14:12 | P.PN ---
Subjective Progress Note Date: 05/30/20 CHIEF COMPLAINT: New onset A. fib with RVR HISTORY OF PRESENT ILLNESS: 05/28/2020 This is a 70-year-old male with a past medical history significant for hyperte nsion, hyperlipidemia, and Covid pneumonia in March 2020. 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 We have been asked to see the patient in consultation for new onset atrial fibrillation with RVR. Patient underwent cystoscopy with Dr. Kaiser in the office which revealed multiple posterior luis angel dder wall tumors. The patient also has a history of gross hematuria. No gross hematuria noted at this time. Patient was scheduled for TURP today with Dr. Kaiser. He was found to be in atrial fibrillation with RVR. His procedure was cancelled and he was admitted to the cardiac stepdown unit for further evaluation. Patient examined at the bedside this afternoon. He denies chest pain or pressure. He denies shortness of breath. He denies palpitations. He remains in atrial fibrillation with RVR with heart rate in the 120-130s. Blood pressure 108/64. 05/29/2020 Patient examined this morning at the bedside. He denies chest pain or pressure. He remains in atrial fibrillation. Heart rate is controlled in the 80s. He remains on an IV Cardizem drip. Blood pressure 112/75. Echocardiogram completed reveals ejection fraction 50-55%, mild aortic regurgitation, mild mitral regurgitation, and moderate tricuspid regurgitation 05/30: Patient denies chest pain, shortness of breath or palpitations. He does complain of nausea and abdominal pain and back pain. He is postop day #1 status post TURBT. Renal ultrasound revealed bilateral renal cysts. No mention of hydronephrosis. Heart rate has been running in the 50s to 80s, blood pressure 100/60, pulse ox 93% on room air. WBC 15.7, hemoglobin 13.7. Sodium 129, potassium 5.2, BUN 36 and creatinine 1.37. PHYSICAL EXAM: VITAL SIGNS: Reviewed. GENERAL: Well-developed in mild distress due to discomfort and nausea. HEENT: Head is normocephalic. Pupils are equal, round. Sclerae anicteric. Mucous membranes of the mouth are moist. Neck supple. No JVD or thyromegaly LUNGS: Respirations even and unlabored. Lungs essentially clear to auscultation bilaterally. HEART: Irregular rate and rhythm. S1 and S2 heard. ABDOMEN: Soft. Nondistended. Nontender. EXTREMITIES: Normal range of motion. No clubbing or cyanosis. Peripheral pulses intact. No lower extremity edema NEUROLOGIC: Awake and alert. Oriented x 3. ASSESSMENT: New onset atrial fibrillation with RVR Bladder cancer, patient was scheduled for TURP 05/28/2020 Hypertension Hyperlipidemia History of Covid March 2020 History of gross hematuria PLAN: Continue Lopressor 25 mg 3 times daily Continue telemetry monitoring Prescription for Eliquis to pharmacy. Patient agrees to current cost. Further recommendations pending patient course Nurse practitioner note has been reviewed by physician. Signing provider agrees with the documented findings, assessment, and plan of care. Objective - Vital Signs Vital signs: Vital Signs Temp 97.8 F 05/30/20 08:00 Pulse 51 L 05/30/20 08:00 Resp 18 05/30/20 08:00 BP 105/70 05/30/20 08:00 Pulse Ox 96 05/30/20 08:00 Intake & Output 05/29/20 05/30/20 05/30/20 18:59 06:59 18:59 Intake Total 1100 0 Output Total 630 Balance 1100 -630 Weight 66 kg 64 kg Intake: IV 1100 0 Output: Urine 600 Estimated Blood Loss 30 Other: Voiding Method Indwelling Catheter Indwelling Catheter # Voids 2 - Labs CBC & Chem 7: 05/30/20 07:05 05/30/20 07:05 Labs: Abnormal Lab Results - Last 24 Hours (Table) 05/29/20 05/29/20 05/30/20 Range/Units 15:45 20:35 06:24 WBC (3.8-10.6) k/uL Neutrophils # (1.3-7.7) k/uL Lymphocytes # (1.0-4.8) k/uL Sodium (137-145) mmol/L Potassium (3.5-5.1) mmol/L Chloride (98-107) mmol/L BUN (9-20) mg/dL Creatinine (0.66-1.25) mg/dL Glucose (74-99) mg/dL POC Glucose (mg/dL) 172 H 293 H 319 H (75-99) mg/dL 05/30/20 05/30/20 05/30/20 Range/Units 07:05 07:05 11:47 WBC 15.7 H (3.8-10.6) k/uL Neutrophils # 14.8 H (1.3-7.7) k/uL Lymphocytes # 0.3 L (1.0-4.8) k/uL Sodium 129 L (137-145) mmol/L Potassium 5.2 H (3.5-5.1) mmol/L Chloride 96 L (98-107) mmol/L BUN 36 H (9-20) mg/dL Creatinine 1.37 H (0.66-1.25) mg/dL Glucose 315 H (74-99) mg/dL POC Glucose (mg/dL) 250 H (75-99) mg/dL
[2020-05-30 17:17] LABS: Glucose,Whole Blood 215 mg/dL (75-99)
[2020-05-30] MEDS: lisinopriL 20 MG TAB PO SCH (17:50)
--- NOTE | 2020-05-30 18:21 | P.PN ---
Progress Note - Text Progress Note Date: 05/30/20 Chief Complaint: Rapid heart rate History of presenting complaint: This is a very pleasant 70-year-old patient of Dr. Horta. Chronic stable medical conditions include GERD, hypertension, hyperlipidemia, kidney stones,. Patient had COVID 19 infection around [facility] last year. Patient has known kidney stones. Patient had a computed tomography scan of the abdomen and pelvis on 04/06/2020 showed a 5.6 cm exophytic right renal cyst. Subsequently developed gross hematuria. Cystoscopy in the office revealed multiple posterior bladder wall tumors. Patient was now brought in outpatient center for further cystoscopy with removal of tumor. In the preop area patient is found to be in atrial fibrillation with a rapid ventricular rate. Patient denies any chest pain or shortness of breath. Admitted to the cardiology floor. Started IV Cardizem drip. Also Lopressor. May 29-Bladder tumor was resected down to the muscle Today-heart rate controlled. Ramírez catheter in place. Clear urine. Tolerating diet. . Review of systems: Was done for constitutional, cardiovascular, GI, pulmonary. relevant finding as above Active Medications Acetaminophen (Acetaminophen Tab 325 Mg Tab) 650 mg PO Q6HR PRN PRN Reason: Fever and/ or Pain Last Admin: 05/30/20 00:47 Dose: 650 mg Documented by: Albuterol Sulfate (Albuterol Nebulized 2.5 Mg/3 Ml) 2.5 mg INHALATION RT-BID [facility] Last Admin: 05/30/20 08:51 Dose: Not Given Documented by: Allopurinol (Allopurinol 300 Mg Tab) 300 mg PO DAILY [facility] Last Admin: 05/30/20 09:07 Dose: 300 mg Documented by: Atorvastatin Calcium (Atorvastatin 10 Mg Tab) 10 mg PO HS [facility] Last Admin: 05/29/20 21:17 Dose: 10 mg Documented by: Folic Acid (Folic Acid 1 Mg Tab) 1 mg PO HS [facility] Last Admin: 05/29/20 21:17 Dose: 1 mg Documented by: Heparin Sodium (Porcine) (Heparin Sodium,Porcine 5,000 Unit/Ml 1 Ml Vial) 0 unit IV PER PROTOCOL PRN; Protocol PRN Reason: Low PTT Hydromorphone HCl (Hydromorphone 1 Mg/Ml 1 Ml Syringe) 1 mg IVP Q3HR PRN PRN Reason: Pain Last Admin: 05/30/20 13:28 Dose: 1 mg Documented by: Lactated Ringer's (Lactated Ringers) 1,000 mls @ 20 mls/hr IV .Q24H [facility] Stop: 06/27/20 06:46 Last Admin: 05/30/20 09:13 Dose: Not Given Documented by: Insulin Aspart (Insulin Aspart (Novolog) 100 Unit/Ml Vial) 0 unit SQ ACHS [facility]; Protocol Last Admin: 05/30/20 17:50 Dose: 3 unit Documented by: Lidocaine HCl (Lidocaine 1% (10mg/Ml) For Iv Start) 0.1 ml INTRADERMA PER PROTOCOL PRN PRN Reason: IV Start Stop: 06/27/20 06:46 Last Admin: 05/28/20 09:24 Dose: 0.1 ml Documented by: Lisinopril (Lisinopril 20 Mg Tab) 20 mg PO W/SUPPER [facility] Last Admin: 05/30/20 17:50 Dose: 20 mg Documented by: Metoprolol Tartrate (Metoprolol Tartrate 25 Mg Tab) 25 mg PO TID [facility] Last Admin: 05/30/20 16:29 Dose: 25 mg Documented by: Multivitamins (Multivitamins, Thera 1 Each Tab) 1 each PO DAILY [facility] Last Admin: 05/30/20 09:07 Dose: 1 each Documented by: Ondansetron HCl (Ondansetron 4 Mg/2 Ml Vial) 4 mg IVP Q6HR PRN PRN Reason: Nausea Last Admin: 05/30/20 13:27 Dose: 4 mg Documented by: Past medical history to include: GERD, hyperlipidemia, hypertension, prostate disorder, right controlled diabetes, psoriasis, gout, kidney stones, bladder tumor, COVID 19 around 2019 Social history: . No smoking. Alcohol rarely. Physical examination: VITAL SIGNS: 97.8, 51, 18, 105/70, 96% room air GENERAL: BMI 24.3, reclining in bed, comfortable EYES: Pupils equal. Conjunctiva normal. HEENT: External appearance of nose and ears normal, oral cavity grossly normal. NECK: JVD not raised; masses not palpable. HEART: Irregular heart sounds; no edema. LUNGS: Respiratory rate normal; clear to auscultation. ABDOMEN: Soft, nontender, liver spleen not palpable, no masses palpable. Ramírez catheter-clear urine PSYCH: Alert and oriented x3; mood and affect normal. INVESTIGATIONS, reviewed in the clinical context: May 30: White count 15.7 hemoglobin 13.7 potassium 5.2 bun 36 creatinine 1.37 May 29: White count of 13.9 hemoglobin 13.5 platelets 223 2-D echocardiogram-moderate concentric LVH, EF 50-55%, moderate mitral annual calcification moderate tricuspid regurgitation White count 9.3 hemoglobin 14.1 platelets 243 Accu-Cheks 219, 192, 419 Telemetry atrial fibrillation with a rapid ventricular rate Previous testing: Creatinine 0.93 on May 07 Assessment: -Possibly persistent atrial fibrillation with a rapid ventricular rate. Patient has been asymptomatic. - controlled -GERD -Essential hypertension -Prostate disorder -Diet controlled diabetes. Currently uncontrolled with hypoglycemia from patient earlier received a dose of dexamethasone -Psoriasis -Kidney stones -Bladder tumor -status post resection -Moderate tricuspid regurgitation -Hypertensive heart disease -Acute kidney injury patient's creatinine was 0.93 on May 07 Plan: Will increase IV fluids overnight. Repeat BMP in the morning. Other medications to continue. Hold off anticoagulation for now.
[2020-05-30 20:20] LABS: Glucose,Whole Blood 237 mg/dL (75-99)
[2020-05-30] MEDS: FOLIC ACID 1 MG TAB PO SCH (20:43)
[2020-05-30] MEDS: ATORVASTATIN 10 MG TAB PO SCH (20:43)
[2020-05-30] MEDS: SODIUM CHLORIDE 0.9% 1,000 ML IV SCH (20:44)
[2020-05-31] MEDS: SODIUM CHLORIDE 0.9% 1,000 ML IV SCH ×3 (01:38→19:12)
[2020-05-31 06:07] LABS: Glucose,Whole Blood 124 mg/dL (75-99)
[2020-05-31 06:07] LABS: Basophils % (A) 0 %; Eosinophils % (A) 0 %; HCT 39.9 % (39.0-53.0); HGB 13.4 gm/dL (13.0-17.5); Lymphocytes % (A) 6 %; MCH 31.2 pg (25.0-35.0); MCHC 33.5 g/dL (31.0-37.0); MCV 93.2 fL (80.0-100.0); Mean Platelet Volume 7.4; Monocytes % (A) 5 %; Neutrophils # (A) 15.9 k/uL (1.3-7.7); Neutrophils % (A) 88 %; Platelet Count 221 k/uL (150-450); RBC 4.28 m/uL (4.30-5.90); RDW 15.3 % (11.5-15.5)
[2020-05-31 06:22] LABS: Calcium 8.3 mg/dL (8.4-10.2); Potassium 4.4 mmol/L (3.5-5.1)
[2020-05-31] MEDS: INSULIN ASPART (NovoLOG) 100 UNIT/ML VIAL SQ SCH ×4 (06:46→21:18)
[2020-05-31] MEDS: MULTIVITAMINS, THERA 1 EACH TAB PO SCH (08:35)
[2020-05-31] MEDS: allopurinoL 300 MG TAB PO SCH (08:35)
[2020-05-31] MEDS: METOPROLOL TARTRATE 25 MG TAB PO SCH ×3 (08:35→21:18)
[2020-05-31] MEDS: HYDROmorphone 1 MG/ML 1 ML SYRINGE IVP PRN ×3 (08:36→14:30)
--- NOTE | 2020-05-31 10:42 | P.PN ---
Subjective Progress Note Date: 05/31/20 Principal diagnosis: POD #2, s/p TUR-BT Mr. Burnham's ultrasound yesterday showed no evidence of hydronephrosis. However, he reports severe right flank pain today, and states that Dilaudid 1 mg every 3 hours is not providing symptomatic relief. He is also experiencing nausea. Objective - Vital Signs Vital signs: Vital Signs Temp 98.1 F 05/31/20 08:00 Pulse 77 05/31/20 03:48 Resp 22 05/31/20 08:00 BP 146/73 05/31/20 08:00 Pulse Ox 98 05/31/20 08:00 Intake & Output 05/30/20 05/31/20 05/31/20 18:59 06:59 18:59 Intake Total 240 480 Output Total 200 400 Balance 40 -400 480 Weight 71 kg Intake: Oral 240 480 Output: Urine 200 400 Other: Voiding Method Indwelling Catheter Indwelling Catheter - Constitutional General appearance: Present: average body habitus, severe distress - Gastrointestinal Gastrointestinal Comment(s): Soft, non-distended. There is no suprapubic tenderness to palpation. The Ramírez catheter is draining clear yellow urine, and irrigates well. - Labs CBC & Chem 7: 05/31/20 05:36 05/31/20 05:36 Labs: Abnormal Lab Results - Last 24 Hours (Table) 05/30/20 05/30/20 05/30/20 Range/Units 11:47 17:13 20:19 WBC (3.8-10.6) k/uL RBC (4.30-5.90) m/uL Neutrophils # (1.3-7.7) k/uL Sodium (137-145) mmol/L BUN (9-20) mg/dL Creatinine (0.66-1.25) mg/dL Glucose (74-99) mg/dL POC Glucose (mg/dL) 250 H 215 H 237 H (75-99) mg/dL Calcium (8.4-10.2) mg/dL 05/31/20 05/31/20 05/31/20 Range/Units 05:36 05:36 06:06 WBC 18.0 H (3.8-10.6) k/uL RBC 4.28 L (4.30-5.90) m/uL Neutrophils # 15.9 H (1.3-7.7) k/uL Sodium 133 L (137-145) mmol/L BUN 32 H (9-20) mg/dL Creatinine 1.66 H (0.66-1.25) mg/dL Glucose 125 H (74-99) mg/dL POC Glucose (mg/dL) 124 H (75-99) mg/dL Calcium 8.3 L (8.4-10.2) mg/dL Assessment and Plan (1) Neoplasm of unspecified behavior of bladder Current Visit: No Status: Acute Code(s): D49.4 - NEOPLASM OF UNSPECIFIED BEHAVIOR OF BLADDER SNOMED Code(s): 261755802 Plan: Despite the fact that ultrasound yesterday showed no evidence of hydronephrosis, I continue to suspect obstruction of the right ureteral orifice. If so, he would require placement of a percutaneous nephrostomy tube with antegrade stent. Anticoagulants will be held until this is clarified and resolved. A computed tomography scan has been ordered, and the Dilaudid dosage has been increased.
[2020-05-31] MEDS: ALBUTEROL NEBULIZED 2.5 MG/3 ML INHALATION SCH ×2 (11:40→19:57)
--- NOTE | 2020-05-31 11:42 | P.PN ---
Subjective Progress Note Date: 05/31/20 CHIEF COMPLAINT: New onset A. fib with RVR HISTORY OF PRESENT ILLNESS: 05/28/2020 This is a 70-year-old male with a past medical history significant for hyperte nsion, hyperlipidemia, and Covid pneumonia in March 2020. 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 We have been asked to see the patient in consultation for new onset atrial fibrillation with RVR. Patient underwent cystoscopy with Dr. Kaiser in the office which revealed multiple posterior luis angel dder wall tumors. The patient also has a history of gross hematuria. No gross hematuria noted at this time. Patient was scheduled for TURP today with Dr. Kaiser. He was found to be in atrial fibrillation with RVR. His procedure was cancelled and he was admitted to the cardiac stepdown unit for further evaluation. Patient examined at the bedside this afternoon. He denies chest pain or pressure. He denies shortness of breath. He denies palpitations. He remains in atrial fibrillation with RVR with heart rate in the 120-130s. Blood pressure 108/64. 05/29/2020 Patient examined this morning at the bedside. He denies chest pain or pressure. He remains in atrial fibrillation. Heart rate is controlled in the 80s. He remains on an IV Cardizem drip. Blood pressure 112/75. Echocardiogram completed reveals ejection fraction 50-55%, mild aortic regurgitation, mild mitral regurgitation, and moderate tricuspid regurgitation 05/30: Patient denies chest pain, shortness of breath or palpitations. He does complain of nausea and abdominal pain and back pain. He is postop day #1 status post TURBT. Renal ultrasound revealed bilateral renal cysts. No mention of hydronephrosis. Heart rate has been running in the 50s to 80s, blood pressure 100/60, pulse ox 93% on room air. WBC 15.7, hemoglobin 13.7. Sodium 129, potassium 5.2, BUN 36 and creatinine 1.37. 05/31: Patient is complaining of significant right flank pain, white count has risen to 18, creatinine is also up at 1.66 and he is having decreased urine output. Patient states his right flank pain is unbearable and he is very anxious and restless. He is not due for pain medications. Requested the Dr. Kaiser be contacted updated regarding these issues. His hemoglobin is stable at 13.4. PHYSICAL EXAM: VITAL SIGNS: Reviewed. GENERAL: Well-developed in mild distress due to discomfort and nausea. HEENT: Head is normocephalic. Pupils are equal, round. Sclerae anicteric. Mucous membranes of the mouth are moist. Neck supple. No JVD or thyromegaly LUNGS: Respirations even and unlabored. Lungs essentially clear to auscultation bilaterally. HEART: Irregular rate and rhythm. S1 and S2 heard. ABDOMEN: Soft. Nondistended. Nontender. EXTREMITIES: Normal range of motion. No clubbing or cyanosis. Peripheral pulses intact. No lower extremity edema NEUROLOGIC: Awake and alert. Oriented x 3. ASSESSMENT: New onset atrial fibrillation with RVR Bladder cancer, patient was scheduled for TURP 05/28/2020 Hypertension Hyperlipidemia History of Covid March 2020 History of gross hematuria PLAN: Continue Lopressor 25 mg 3 times daily Continue telemetry monitoring Prescription for Eliquis to pharmacy. Patient agrees to current cost. Further recommendations pending patient course Nurse practitioner note has been reviewed by physician. Signing provider agrees with the documented findings, assessment, and plan of care. Objective - Vital Signs Vital signs: Vital Signs Temp 98.1 F 05/31/20 08:00 Pulse 77 05/31/20 03:48 Resp 22 05/31/20 08:00 BP 146/73 05/31/20 08:00 Pulse Ox 98 05/31/20 08:00 Intake & Output 05/30/20 05/31/20 05/31/20 18:59 06:59 18:59 Intake Total 240 480 Output Total 200 400 Balance 40 -400 480 Weight 71 kg Intake: Oral 240 480 Output: Urine 200 400 Other: Voiding Method Indwelling Catheter Indwelling Catheter - Labs CBC & Chem 7: 05/31/20 05:36 05/31/20 05:36 Labs: Abnormal Lab Results - Last 24 Hours (Table) 05/30/20 05/30/20 05/30/20 Range/Units 11:47 17:13 20:19 WBC (3.8-10.6) k/uL RBC (4.30-5.90) m/uL Neutrophils # (1.3-7.7) k/uL Sodium (137-145) mmol/L BUN (9-20) mg/dL Creatinine (0.66-1.25) mg/dL Glucose (74-99) mg/dL POC Glucose (mg/dL) 250 H 215 H 237 H (75-99) mg/dL Calcium (8.4-10.2) mg/dL 05/31/20 05/31/20 05/31/20 Range/Units 05:36 05:36 06:06 WBC 18.0 H (3.8-10.6) k/uL RBC 4.28 L (4.30-5.90) m/uL Neutrophils # 15.9 H (1.3-7.7) k/uL Sodium 133 L (137-145) mmol/L BUN 32 H (9-20) mg/dL Creatinine 1.66 H (0.66-1.25) mg/dL Glucose 125 H (74-99) mg/dL POC Glucose (mg/dL) 124 H (75-99) mg/dL Calcium 8.3 L (8.4-10.2) mg/dL
[2020-05-31 11:49] LABS: Glucose,Whole Blood 218 mg/dL (75-99)
--- NOTE | 2020-05-31 12:16 | CT ---
EXAMINATION TYPE: CT abdomen pelvis wo con DATE OF EXAM: 05/31/2020 COMPARISON: 04/18/2015 INDICATION: Bladder tumors, flank pain DLP: 490.5 mGycm, Automated exposure control for dose reduction was used. CONTRAST: 0 mL of Isovue 300. Study performed without Oral Contrast TECHNIQUE: Axial images were obtained from above the diaphragm to the pubic rami in the axial plane a t 5 mm thick sections. Reconstructed images are reviewed on the computer in the coronal plane. FINDINGS: Limited CT sections are obtained the lung bases. Patchy infiltrate is at the lung bases. Coronary ar kirt calcification is present. Small hiatal hernia is present. CT ABDOMEN: Liver: Normal Spleen: Small calcification is within the spleen. Pancreas: Normal Adrenal glands: The adrenal glands are normal. Gallbladder: Normal Kidneys: No masses are evident. No hydronephrosis is present. There is a 5.8 cm cyst measuring 7 Ho unsfield units on the anterior mid to inferior pole right kidney. Some perinephric stranding is prese nt. There appears to be some stranding adjacent to the mid to distal ureter no renal stones are iden tified. Aorta: Vascular calcification is within the aorta. Inferior vena cava: Normal. CT PELVIS: Loops of bowel within the abdomen and pelvis are normal. Diverticulosis of the sigmoid colon without acute diverticulitis is present. Study is without oral contrast limiting bowel evaluation. Appendix: Not identified. Urinary bladder: Decompressed Ramírez catheter. There is some mild stranding adjacent. Patient has a re cent history of tumor resection from the urinary bladder. No free air within the pelvis is identified . Cannot exclude urinary bladder perforation. Referring surgeon is aware of the findings, discussed a pproximately 1205 hours 05/31/2020. Genitourinary structures: Prostate appears normal Osseous structures: No suspicious lytic or sclerotic lesions. IMPRESSIONS: 1. Decompressed urinary bladder with adjacent stranding as well as some stranding adjacent to the di stal ureter and perinephric region. Urinary bladder perforation is not excluded. 2. Diverticulosis without acute diverticulitis. 3. Small hiatal hernia. 4. Mild bilateral lung base infiltrates.
--- NOTE | 2020-05-31 13:51 | FL ---
EXAMINATION TYPE: FL cystogram DATE OF EXAM: 05/31/2020 COMPARISON: None HISTORY: Pain, recent urinary bladder tumor resection, abnormal CT TECHNIQUE: Imaging was performed over the urinary bladder with retrograde filling through a previousl y placed Ramírez catheter. 250 mL was administered. Spontaneous draining was observed upon completion o f the exam. FINDINGS: Fluoroscopy time: 25 seconds Images: 13 250 mL of Cystografin was administered through the Ramírez catheter under fluoroscopic observation. No extravasation is evident. No suspicious filling defects are evident. Patient was comfortable during t he examination. Oblique views were obtained which are normal. No reflux into the ureters was evident during the exam. The patient was allowed to drain into the Ramírez catheter bag. No reflux or extravasation was evident during spontaneous drainage. Preliminary results were provided to the referring surgeon at the time of the procedure. IMPRESSION: 1. No suspicious abnormality to suggest urinary bladder perforation.
[2020-05-31] MEDS: CYCLOBENZAPRINE 5 MG TAB PO SCH ×3 (16:01→21:18)
[2020-05-31] MEDS: HYDROcodone/APAP 5-325MG 1 EACH TAB PO PRN ×2 (16:01→22:06)
[2020-05-31 16:48] LABS: Glucose,Whole Blood 265 mg/dL (75-99)
[2020-05-31] MEDS ORDERED: DILTIAZEM DRIP BOLUS FROM BAG 1 MG SOLN IV ONE (18:41)
--- NOTE | 2020-05-31 19:52 | P.PN ---
Progress Note - Text Progress Note Date: 05/31/20 Chief Complaint: Rapid heart rate History of presenting complaint: This is a very pleasant 70-year-old patient of Dr. Horta. Chronic stable medical conditions include GERD, hypertension, hyperlipidemia, kidney stones,. Patient had COVID 19 infection around [facility] last year. Patient has known kidney stones. Patient had a computed tomography scan of the abdomen and pelvis on 04/06/2020 showed a 5.6 cm exophytic right renal cyst. Subsequently developed gross hematuria. Cystoscopy in the office revealed multiple posterior bladder wall tumors. Patient was now brought in outpatient center for further cystoscopy with removal of tumor. In the preop area patient is found to be in atrial fibrillation with a rapid ventricular rate. Patient denies any chest pain or shortness of breath. Admitted to the cardiology floor. Started IV Cardizem drip. Also Lopressor. May 29-Bladder tumor was resected down to the muscle Today-patient requiring Dilaudid for pain control. Having pain just above the right hip. No bruising in that area. No sonam hematuria in the Ramírez catheter. Decreased appetite. Heart rate up to the 130s. Started with Cardizem drip. Review of systems: Was done for constitutional, cardiovascular, GI, pulmonary. relevant finding as above Active Medications Acetaminophen (Acetaminophen Tab 325 Mg Tab) 650 mg PO Q6HR PRN PRN Reason: Fever and/ or Pain Last Admin: 05/30/20 00:47 Dose: 650 mg Documented by: Hydrocodone Bitart/Acetaminophen (Hydrocodone/Apap 5-325mg 1 Each Tab) 1 each PO Q6HR PRN PRN Reason: Pain Last Admin: 05/31/20 16:01 Dose: 1 each Documented by: Albuterol Sulfate (Albuterol Nebulized 2.5 Mg/3 Ml) 2.5 mg INHALATION RT-BID [facility] Last Admin: 05/31/20 11:40 Dose: Not Given Documented by: Allopurinol (Allopurinol 300 Mg Tab) 300 mg PO DAILY [facility] Last Admin: 05/31/20 08:35 Dose: 300 mg Documented by: Atorvastatin Calcium (Atorvastatin 10 Mg Tab) 10 mg PO HS [facility] Last Admin: 05/30/20 20:43 Dose: 10 mg Documented by: Cyclobenzaprine HCl (Cyclobenzaprine 5 Mg Tab) 5 mg PO TID [facility] Last Admin: 05/31/20 16:04 Dose: Not Given Documented by: Folic Acid (Folic Acid 1 Mg Tab) 1 mg PO HS [facility] Last Admin: 05/30/20 20:43 Dose: 1 mg Documented by: Heparin Sodium (Porcine) (Heparin Sodium,Porcine 5,000 Unit/Ml 1 Ml Vial) 0 unit IV PER PROTOCOL PRN; Protocol PRN Reason: Low PTT Sodium Chloride (Saline 0.9%) 1,000 mls @ 130 mls/hr IV .[id number] [facility] Last Admin: 05/31/20 19:12 Dose: Not Given Documented by: Diltiazem HCl 125 mg/ Sodium (Chloride) 125 mls @ 10 mls/hr IV .[id number] [facility] Insulin Aspart (Insulin Aspart (Novolog) 100 Unit/Ml Vial) 0 unit SQ ACHS [facility]; Protocol Last Admin: 05/31/20 18:04 Dose: 4 unit Documented by: Lidocaine HCl (Lidocaine 1% (10mg/Ml) For Iv Start) 0.1 ml INTRADERMA PER PROTOCOL PRN PRN Reason: IV Start Stop: 06/27/20 06:46 Last Admin: 05/28/20 09:24 Dose: 0.1 ml Documented by: Metoprolol Tartrate (Metoprolol Tartrate 25 Mg Tab) 25 mg PO TID [facility] Last Admin: 05/31/20 16:01 Dose: 25 mg Documented by: Multivitamins (Multivitamins, Thera 1 Each Tab) 1 each PO DAILY [facility] Last Admin: 05/31/20 08:35 Dose: 1 each Documented by: Ondansetron HCl (Ondansetron 4 Mg/2 Ml Vial) 4 mg IVP Q6HR PRN PRN Reason: Nausea Last Admin: 05/30/20 20:43 Dose: 4 mg Documented by: Past medical history to include: GERD, hyperlipidemia, hypertension, prostate disorder, right controlled diabetes, psoriasis, gout, kidney stones, bladder tumor, COVID 19 around 2019 Social history: . No smoking. Alcohol rarely. Physical examination: VITAL SIGNS: 99, 137, 18, 115/65, 94% room air GENERAL: BMI 24.3, reclining in bed, but uncomfortable EYES: Pupils equal. Conjunctiva normal. HEENT: External appearance of nose and ears normal, oral cavity grossly normal. NECK: JVD not raised; masses not palpable. HEART: Irregular heart sounds; no edema. LUNGS: Respiratory rate normal; clear to auscultation. ABDOMEN: Soft, nontender, liver spleen not palpable, no masses palpable. Ramírez catheter-clear urine PSYCH: Alert and oriented x3; mood and affect normal. MUSCULAR skeletal: Patient has localized tenderness just lateral to the lumbosacral junction. INVESTIGATIONS, reviewed in the clinical context: May 31: White count 18 hemoglobin 13.4 platelets 221 potassium 4.4 bun 32 creatinine 1.66 Computed tomography scan abdomen and pelvis without contrast-no urinary bladder perforation. Obvious. No diverticulosis. Cystoscopy gram-negative for perforation May 30: White count 15.7 hemoglobin 13.7 potassium 5.2 bun 36 creatinine 1.37 May 29: White count of 13.9 hemoglobin 13.5 platelets 223 2-D echocardiogram-moderate concentric LVH, EF 50-55%, moderate mitral annual calcification moderate tricuspid regurgitation White count 9.3 hemoglobin 14.1 platelets 243 Accu-Cheks 219, 192, 419 Telemetry atrial fibrillation with a rapid ventricular rate Previous testing: Creatinine 0.93 on May 07 Assessment: -Possibly persistent atrial fibrillation with a rapid ventricular rate. Uncontrolled again. -GERD -Essential hypertension -Prostate disorder -Diet controlled diabetes. uncontrolled with hyperglycemia from patient earlier received a dose of dexamethasone on presentation. -Psoriasis -Kidney stones -Bladder tumor -status post resection -Moderate tricuspid regurgitation -Hypertensive heart disease -Acute kidney injury patient's creatinine was 0.93 on May 07 worsening. Up to 1.66. No evidence of hydronephrosis. Good urine output. 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 Plan: We'll add Flexeril and [place] for pain control. DC Dilaudid. Giving nausea and decreased appetite. Discussed with Dr. Angeles. Hold off antibiotic ventilation for now. Patient started on Cardizem drip. Repeat labs.
[2020-05-31] MEDS: ONDANSETRON 4 MG/2 ML VIAL IVP PRN (19:58)
[2020-05-31] MEDS: ACETAMINOPHEN TAB 325 MG TAB PO PRN (19:58)
[2020-05-31] MEDS: DILTIAZEM 125 MG in SODIUM CHLORIDE 0.9% 100 ML IV SCH (19:59)
[2020-05-31 20:14] LABS: Glucose,Whole Blood 199 mg/dL (75-99)
[2020-05-31] MEDS: ATORVASTATIN 10 MG TAB PO SCH (21:18)
[2020-05-31] MEDS: FOLIC ACID 1 MG TAB PO SCH (21:18)
[2020-06-01] MEDS: ACETAMINOPHEN TAB 325 MG TAB PO PRN (02:01)
[2020-06-01] MEDS: HYDROcodone/APAP 5-325MG 1 EACH TAB PO PRN ×2 (04:04→09:40)
[2020-06-01] MEDS: SODIUM CHLORIDE 0.9% 1,000 ML IV SCH ×3 (04:06→17:42)
[2020-06-01 06:19] LABS: Glucose,Whole Blood 165 mg/dL (75-99)
[2020-06-01] MEDS: INSULIN ASPART (NovoLOG) 100 UNIT/ML VIAL SQ SCH ×4 (06:25→21:15)
[2020-06-01 07:25] LABS: Calcium 7.9 mg/dL (8.4-10.2); Potassium 4.5 mmol/L (3.5-5.1)
[2020-06-01] MEDS: ALBUTEROL NEBULIZED 2.5 MG/3 ML INHALATION SCH ×2 (07:53→20:36)
--- NOTE | 2020-06-01 08:00 | P.PN ---
Subjective Progress Note Date: 06/01/20 The patient is status post TURBT by . He had a significant amount of postoperative pain. He had a computed tomography scan and cystogram to rule out leak and there was none area and there is no hydronephrosis. He feels much out of this morning. His abdomen was soft. There is no palpable tenderness. There is no flank pain. His vital signs are stable. From a urologic standpoint he should keep his follow-up appointment with Dr. Kaiser. He should be discharged home with a catheter. Objective - Vital Signs Vital signs: Vital Signs Temp 98.9 F 06/01/20 04:00 Pulse 82 06/01/20 04:00 Resp 20 06/01/20 04:00 BP 127/83 06/01/20 04:00 Pulse Ox 95 06/01/20 04:00 Intake & Output 05/31/20 06/01/20 06/01/20 18:59 06:59 18:59 Intake Total 480 Output Total 800 900 Balance -320 -900 Weight 70.5 kg Intake: Oral 480 Output: Urine 800 900 Other: Voiding Method Indwelling Catheter Indwelling Catheter # Voids 0 # Bowel Movements 0 - Labs CBC & Chem 7: 05/31/20 05:36 06/01/20 06:39 Labs: Abnormal Lab Results - Last 24 Hours (Table) 05/31/20 05/31/20 05/31/20 Range/Units 11:47 16:39 20:13 Sodium (137-145) mmol/L BUN (9-20) mg/dL Creatinine (0.66-1.25) mg/dL Glucose (74-99) mg/dL POC Glucose (mg/dL) 218 H 265 H 199 H (75-99) mg/dL Calcium (8.4-10.2) mg/dL 06/01/20 06/01/20 Range/Units 06:17 06:39 Sodium 132 L (137-145) mmol/L BUN 24 H (9-20) mg/dL Creatinine 1.58 H (0.66-1.25) mg/dL Glucose 152 H (74-99) mg/dL POC Glucose (mg/dL) 165 H (75-99) mg/dL Calcium 7.9 L (8.4-10.2) mg/dL
[2020-06-01] MEDS: DILTIAZEM 125 MG in SODIUM CHLORIDE 0.9% 100 ML IV SCH (08:28)
[2020-06-01] MEDS: allopurinoL 300 MG TAB PO SCH (08:28)
[2020-06-01] MEDS: MULTIVITAMINS, THERA 1 EACH TAB PO SCH (08:28)
[2020-06-01] MEDS: METOPROLOL TARTRATE 25 MG TAB PO SCH (08:28)
[2020-06-01] MEDS: CYCLOBENZAPRINE 5 MG TAB PO SCH ×3 (08:29→21:15)
[2020-06-01 11:38] LABS: Glucose,Whole Blood 218 mg/dL (75-99)
[2020-06-01] MEDS: APIXABAN 5 MG TAB PO SCH ×2 (11:59→21:15)
--- NOTE | 2020-06-01 14:59 | XR ---
EXAMINATION TYPE: XR lumbar spine 2 or 3V DATE OF EXAM: 06/01/2020 CLINICAL HISTORY: pain TECHNIQUE: Three views of the lumbar spine are submitted. COMPARISON: None. FINDINGS: There are 5 lumbar type vertebral bodies identified. The lumbar spine shows satisfactory alignment w ithout evidence of acute fracture or dislocation. Vertebral body heights are within normal limits. Moderate multilevel degenerative disc disease and spondylosis. The overlying soft tissue appears unr emarkable. IMPRESSION: No acute fracture or dislocation is seen in the lumbar spine. ICD 10 NO FRACTURE, INITIAL EVALUATION
--- NOTE | 2020-06-01 15:08 | P.PN ---
Subjective This is a pleasant 70-year-old male past medical history significant for hypertension, dyslipidemia and bladder cancer. We are following secondary to new onset atrial fibrillation. He is status post TURP on May [address] Kaiser. He is seen and examined resting comfortably laying flat in bed in no acute distress. He denies symptoms of chest pain, shortness of breath, dizziness or palpitations. Telemetry tracings indicate he remains in atrial fibrillation with controlled heart rates. Blood pressure 127/74 heart rate 88 afebrile maintaining oxygen saturation on room air. Laboratory data reviewed, sodium 132, potassium 4.5, creatinine 1.58. Currently maintained on atorvastatin 10 mg at bedtime and Lopressor 25 mg 3 times a day. GENERAL: Well-appearing, well-nourished and in no acute distress. NECK: Supple without JVD or thyromegaly. LUNGS: Breath sounds clear to auscultation bilaterally. Respiration equal and unlabored. No wheezes, rales or rhonchi. HEART: Irregular rate and rhythm with systolic ejection murmur at the base, no rubs or gallops. S1 and S2 heard. EXTREMITIES: Normal range of motion, no edema. No clubbing or cyanosis. Peripheral pulses intact. ASSESSMENT New onset paroxysmal atrial fibrillation Bladder cancer status post TURP Hypertension Dyslipidemia PLAN Discussed anticoagulation with Dr. Cobos, he is agreeable to initiate today. He remains in afib with controlled ventricular rates, running in the 90's. Increase lopressor to 50 mg TID. Follow up in the office with Dr. Courtney upon discharge. We will follow along as needed, please call with further questions or concerns. Nurse Practitioner note has been reviewed, I agree with a documented findings and plan of care. Patient was seen and examined. Objective - Vital Signs Vital signs: Vital Signs Temp 98.2 F 06/01/20 12:00 Pulse 88 06/01/20 12:00 Resp 18 06/01/20 12:00 BP 127/74 06/01/20 12:00 Pulse Ox 94 L 06/01/20 12:00 Intake & Output 05/31/20 06/01/20 06/01/20 18:59 06:59 18:59 Intake Total 480 360.833 Output Total 800 900 550 Balance -320 -900 -189.167 Weight 70.5 kg Intake: Intake, IV Titration 124.833 Amount Diltiazem 125 mg In 124.833 Sodium Chloride 0.9% 100 ml @ 10 MG/HR 10 mls/hr IV .[id number] COUNT INCLUDES THE [facility] Rx#: [id number] Oral 480 236 Output: Urine 800 900 550 Other: Voiding Method Indwelling Catheter Indwelling Catheter Indwelling Catheter # Voids 0 # Bowel Movements 0 1 - Labs CBC & Chem 7: 05/31/20 05:36 06/01/20 06:39 Labs: Abnormal Lab Results - Last 24 Hours (Table) 05/31/20 05/31/20 06/01/20 Range/Units 16:39 20:13 06:17 Sodium (137-145) mmol/L BUN (9-20) mg/dL Creatinine (0.66-1.25) mg/dL Glucose (74-99) mg/dL POC Glucose (mg/dL) 265 H 199 H 165 H (75-99) mg/dL Calcium (8.4-10.2) mg/dL 06/01/20 06/01/20 Range/Units 06:39 11:37 Sodium 132 L (137-145) mmol/L BUN 24 H (9-20) mg/dL Creatinine 1.58 H (0.66-1.25) mg/dL Glucose 152 H (74-99) mg/dL POC Glucose (mg/dL) 218 H (75-99) mg/dL Calcium 7.9 L (8.4-10.2) mg/dL
[2020-06-01 17:06] LABS: Glucose,Whole Blood 226 mg/dL (75-99)
[2020-06-01] MEDS: METOPROLOL TARTRATE 50 MG TAB PO SCH ×2 (17:43→21:15)
--- NOTE | 2020-06-01 19:06 | P.PN ---
Progress Note - Text Progress Note Date: 06/01/20 Chief Complaint: Rapid heart rate History of presenting complaint: This is a very pleasant 70-year-old patient of Dr. Horta. Chronic stable medical conditions include GERD, hypertension, hyperlipidemia, kidney stones,. Patient had COVID 19 infection around [facility] last year. Patient has known kidney stones. Patient had a computed tomography scan of the abdomen and pelvis on 04/06/2020 showed a 5.6 cm exophytic right renal cyst. Subsequently developed gross hematuria. Cystoscopy in the office revealed multiple posterior bladder wall tumors. Patient was now brought in outpatient center for further cystoscopy with removal of tumor. In the preop area patient is found to be in atrial fibrillation with a rapid ventricular rate. Patient denies any chest pain or shortness of breath. Admitted to the cardiology floor. Started IV Cardizem drip. Also Lopressor. May 29-Bladder tumor was resected down to the muscle. Had worsening of creatinine. Computed tomography scan his abdomen negative for any hydronephrosis. Cystoscopy gram-negative for perforation. Today-right hip pain better. Oral intake improving 50-75%. Less nausea. Feeling better. Good urine output. A. fib controlled Review of systems: Was done for constitutional, cardiovascular, GI, pulmonary. relevant finding as above Active Medications Acetaminophen (Acetaminophen Tab 325 Mg Tab) 650 mg PO Q6HR PRN PRN Reason: Fever and/ or Pain Last Admin: 06/01/20 02:01 Dose: 650 mg Documented by: Hydrocodone Bitart/Acetaminophen (Hydrocodone/Apap 5-325mg 1 Each Tab) 1 each PO Q6HR PRN PRN Reason: Pain Last Admin: 06/01/20 04:04 Dose: 1 each Documented by: Albuterol Sulfate (Albuterol Nebulized 2.5 Mg/3 Ml) 2.5 mg INHALATION RT-BID [facility] Last Admin: 06/01/20 07:53 Dose: Not Given Documented by: Allopurinol (Allopurinol 300 Mg Tab) 300 mg PO DAILY [facility] Last Admin: 06/01/20 08:28 Dose: 300 mg Documented by: Apixaban (Apixaban 5 Mg Tab) 5 mg PO BID [facility] Last Admin: 06/01/20 11:59 Dose: 5 mg Documented by: Atorvastatin Calcium (Atorvastatin 10 Mg Tab) 10 mg PO HS [facility] Last Admin: 05/31/20 21:18 Dose: 10 mg Documented by: Cyclobenzaprine HCl (Cyclobenzaprine 5 Mg Tab) 5 mg PO TID [facility] Last Admin: 06/01/20 17:43 Dose: 5 mg Documented by: Folic Acid (Folic Acid 1 Mg Tab) 1 mg PO HS [facility] Last Admin: 05/31/20 21:18 Dose: 1 mg Documented by: Sodium Chloride (Saline 0.9%) 1,000 mls @ 130 mls/hr IV .Q7H42M [facility] Last Admin: 06/01/20 17:42 Dose: Not Given Documented by: Insulin Aspart (Insulin Aspart (Novolog) 100 Unit/Ml Vial) 0 unit SQ ACHS [facility]; Protocol Last Admin: 06/01/20 17:42 Dose: 3 unit Documented by: Lidocaine HCl (Lidocaine 1% (10mg/Ml) For Iv Start) 0.1 ml INTRADERMA PER PROTOCOL PRN PRN Reason: IV Start Stop: 06/27/20 06:46 Last Admin: 05/28/20 09:24 Dose: 0.1 ml Documented by: Metoprolol Tartrate (Metoprolol Tartrate 50 Mg Tab) 50 mg PO TID [facility] Last Admin: 06/01/20 17:43 Dose: 50 mg Documented by: Multivitamins (Multivitamins, Thera 1 Each Tab) 1 each PO DAILY [facility] Last Admin: 06/01/20 08:28 Dose: 1 each Documented by: Ondansetron HCl (Ondansetron 4 Mg/2 Ml Vial) 4 mg IVP Q6HR PRN PRN Reason: Nausea Last Admin: 05/31/20 19:58 Dose: 4 mg Documented by: Past medical history to include: GERD, hyperlipidemia, hypertension, prostate disorder, right controlled diabetes, psoriasis, gout, kidney stones, bladder tumor, COVID 19 around 2019 Social history: . No smoking. Alcohol rarely. Physical examination: VITAL SIGNS: 98.2, 88, 18, 127/74, 94% room air GENERAL: BMI 24.3, reclining in bed, looking better EYES: Pupils equal. Conjunctiva normal. HEENT: External appearance of nose and ears normal, oral cavity grossly normal. NECK: JVD not raised; masses not palpable. HEART: Irregular heart sounds; no edema. LUNGS: Respiratory rate normal; clear to auscultation. ABDOMEN: Soft, nontender, liver spleen not palpable, no masses palpable. Ramírez catheter-clear urine PSYCH: Alert and oriented x3; mood and affect normal. MUSCULAR skeletal: Patient has localized tenderness just lateral to the lumbosacral junction. INVESTIGATIONS, reviewed in the clinical context: June 01: Potassium 4.5 bun 24 creatinine 1.58 Lumbosacral x-ray film personally reviewed by me shows L5 sacral junctions significant DJD May 31: White count 18 hemoglobin 13.4 platelets 221 potassium 4.4 bun 32 creatinine 1.66 Computed tomography scan abdomen and pelvis without contrast-no urinary bladder perforation. diverticulosis. Cystoscopy gram-negative for perforation May 30: White count 15.7 hemoglobin 13.7 potassium 5.2 bun 36 creatinine 1.37 May 29: White count of 13.9 hemoglobin 13.5 platelets 223 2-D echocardiogram-moderate concentric LVH, EF 50-55%, moderate mitral annual calcification moderate tricuspid regurgitation White count 9.3 hemoglobin 14.1 platelets 243 Accu-Cheks 219, 192, 419 Telemetry atrial fibrillation with a rapid ventricular rate Previous testing: Creatinine 0.93 on May 07 Assessment: -Possibly persistent atrial fibrillation with a rapid ventricular rate. Uncontrolled again. -GERD -Essential hypertension -Prostate disorder -Diet controlled diabetes. uncontrolled with hyperglycemia from patient earlier received a dose of dexamethasone on presentation. -Psoriasis -Kidney stones -Bladder tumor -status post resection -Moderate tricuspid regurgitation -Hypertensive heart disease -Acute kidney injury patient's creatinine was 0.93 on May 07 worsening. Up to 1.66. No evidence of hydronephrosis. Good urine output. -Right posterior back pain possibly related lumbosacral junction DJD..- Improving with Flexeril. And heating pad. Plan: Eliquis was resumed today after getting okay from neurology. Discussed with the patient. Pain is better controlled. Increase activity. Oral intake improving. Keep IV fluids till tomorrow morning at least. Repeat labs. Add Pepcid for GI prophylaxis.
[2020-06-01 20:43] LABS: Glucose,Whole Blood 225 mg/dL (75-99)
[2020-06-01] MEDS: FOLIC ACID 1 MG TAB PO SCH (21:15)
[2020-06-01] MEDS: FAMOTIDINE 20 MG TAB PO SCH (21:15)
[2020-06-01] MEDS: ATORVASTATIN 10 MG TAB PO SCH (21:15)
[2020-06-02] MEDS: SODIUM CHLORIDE 0.9% 1,000 ML IV SCH ×2 (00:24→14:22)
[2020-06-02 05:47] LABS: Glucose,Whole Blood 130 mg/dL (75-99)
[2020-06-02] MEDS: INSULIN ASPART (NovoLOG) 100 UNIT/ML VIAL SQ SCH ×2 (06:05→13:38)
[2020-06-02] MEDS: METOPROLOL TARTRATE 50 MG TAB PO SCH (06:40)
--- NOTE | 2020-06-02 07:27 | P.PN ---
Subjective Progress Note Date: 06/02/20 The patient is status post TURBT. He had a significant amount of post surgical pain. This pain has subsided. His abdomen is soft and his urine is clear. From a urologic standpoint he can be discharged home with the catheter. He should see in one week Objective - Vital Signs Vital signs: Vital Signs Temp 98.2 F 06/02/20 00:00 Pulse 95 06/02/20 04:00 Resp 15 06/02/20 04:00 BP 126/83 06/02/20 04:00 Pulse Ox 90 L 06/02/20 04:00 Intake & Output 06/01/20 06/02/20 06/02/20 18:59 06:59 18:59 Intake Total 596.833 390 Output Total 1200 750 525 Balance -603.167 -750 -135 Weight 70.3 kg Intake: Intake, IV Titration 124.833 390 Amount Diltiazem 125 mg In 124.833 Sodium Chloride 0.9% 100 ml @ 10 MG/HR 10 mls/hr IV .[id number] [facility] Rx#: [id number] Sodium Chloride 0.9% 1, 390 000 ml @ 130 mls/hr IV . Q7H42M [facility] Rx#:[id number] Oral 472 Output: Urine 1200 750 525 Other: Voiding Method Indwelling Catheter Indwelling Catheter # Voids 2 # Bowel Movements 2 - Labs CBC & Chem 7: 05/31/20 05:36 06/01/20 06:39 Labs: Abnormal Lab Results - Last 24 Hours (Table) 06/01/20 06/01/20 06/01/20 Range/Units 06:39 11:37 17:04 Sodium 132 L (137-145) mmol/L BUN 24 H (9-20) mg/dL Creatinine 1.58 H (0.66-1.25) mg/dL Glucose 152 H (74-99) mg/dL POC Glucose (mg/dL) 218 H 226 H (75-99) mg/dL Calcium 7.9 L (8.4-10.2) mg/dL 06/01/20 06/02/20 Range/Units 20:41 05:45 Sodium (137-145) mmol/L BUN (9-20) mg/dL Creatinine (0.66-1.25) mg/dL Glucose (74-99) mg/dL POC Glucose (mg/dL) 225 H 130 H (75-99) mg/dL Calcium (8.4-10.2) mg/dL
[2020-06-02 07:32] LABS: Basophils % (A) 0 %; Eosinophils # (A) 0.1 k/uL (0-0.7); Eosinophils % (A) 1 %; HCT 38.8 % (39.0-53.0); HGB 12.9 gm/dL (13.0-17.5); Lymphocytes # (A) 1.1 k/uL (1.0-4.8); Lymphocytes % (A) 11 %; MCH 31.3 pg (25.0-35.0); MCHC 33.3 g/dL (31.0-37.0); Mean Platelet Volume 7.4; Monocytes # (A) 0.4 k/uL (0-1.0); Monocytes % (A) 4 %; Neutrophils # (A) 8.6 k/uL (1.3-7.7); Neutrophils % (A) 84 %; Platelet Count 172 k/uL (150-450); RBC 4.12 m/uL (4.30-5.90); RDW 15.7 % (11.5-15.5); WBC 10.2 k/uL (3.8-10.6)
[2020-06-02 07:43] LABS: African American GFR (CKD) >90 (>60 ml/min/1.73 sqM); Anion Gap 7 mmol/L; Blood Urea Nitrogen 14 mg/dL (9-20); Calcium 8.2 mg/dL (8.4-10.2); Carbon Dioxide 27 mmol/L (22-30); Chloride 99 mmol/L (98-107); Glucose 135 mg/dL (74-99); Non-African American GFR(CKD) 81 (>60 ml/min/1.73 sqM); Potassium 4.1 mmol/L (3.5-5.1); Sodium 133 mmol/L (137-145)
[2020-06-02] MEDS: CYCLOBENZAPRINE 5 MG TAB PO SCH ×2 (08:18→17:15)
[2020-06-02] MEDS: allopurinoL 300 MG TAB PO SCH (08:18)
[2020-06-02] MEDS: MULTIVITAMINS, THERA 1 EACH TAB PO SCH (08:18)
[2020-06-02] MEDS: APIXABAN 5 MG TAB PO SCH (08:18)
[2020-06-02] MEDS: FAMOTIDINE 20 MG TAB PO SCH (08:18)
[2020-06-02 08:22] VITALS: RESP 16
[2020-06-02] MEDS: ALBUTEROL NEBULIZED 2.5 MG/3 ML INHALATION SCH (08:22)
--- NOTE | 2020-06-02 11:13 | P.PN ---
Subjective This is a pleasant 70-year-old male past medical history significant for hypertension, dyslipidemia and bladder cancer. We are following secondary to new onset atrial fibrillation. He is status post TURP on May [address] Kaiser. He is seen and examined resting comfortably laying flat in bed in no acute distress. Telemetry tracings yesterday indicate he was having some 2 second pauses. This morning he had an episode of RVR with rates in the 170's. Currently on lopressor 50 mg TID. Blood pressure 109/74 heart rate currently 59 in afib. Laboratory data reviewed, WBC 10.2, hemoglobin 12.9, platelets 172, sodium 133, potassium 4.1 and creatinine 0.95. GENERAL: Well-appearing, well-nourished and in no acute distress. NECK: Supple without JVD or thyromegaly. LUNGS: Breath sounds clear to auscultation bilaterally. Respiration equal and unlabored. No wheezes, rales or rhonchi. HEART: Irregular rate and rhythm with systolic ejection murmur at the base, no rubs or gallops. S1 and S2 heard. EXTREMITIES: Normal range of motion, no edema. No clubbing or cyanosis. Peripheral pulses intact. ASSESSMENT New onset paroxysmal atrial fibrillation Bladder cancer status post TURP Hypertension Dyslipidemia PLAN Decrease lopressor to 25 mg TID. Follow up in the office with Dr. Courtney upon discharge. We will follow along as needed, please call with further questions or concerns. Nurse Practitioner note has been reviewed, I agree with a documented findings and plan of care. Patient was seen and examined. Objective - Vital Signs Vital signs: Vital Signs Temp 98.2 F 06/02/20 08:00 Pulse 59 L 06/02/20 08:34 Resp 16 06/02/20 08:00 BP 109/74 06/02/20 08:00 Pulse Ox 95 06/02/20 08:00 Intake & Output 06/01/20 06/02/20 06/02/20 18:59 06:59 18:59 Intake Total 596.833 390 Output Total 1200 750 525 Balance -603.167 -750 -135 Weight 70.3 kg Intake: Intake, IV Titration 124.833 390 Amount Diltiazem 125 mg In 124.833 Sodium Chloride 0.9% 100 ml @ 10 MG/HR 10 mls/hr IV .[id number] [facility] Rx#: [id number] Sodium Chloride 0.9% 1, 390 000 ml @ 130 mls/hr IV . Q7H42M [facility] Rx#:[id number] Oral 472 Output: Urine 1200 750 525 Other: Voiding Method Indwelling Catheter Indwelling Catheter Indwelling Catheter # Voids 2 # Bowel Movements 2 - Labs CBC & Chem 7: 06/02/20 07:03 06/02/20 07:03 Labs: Abnormal Lab Results - Last 24 Hours (Table) 06/01/20 06/01/20 06/01/20 Range/Units 11:37 17:04 20:41 RBC (4.30-5.90) m/uL Hgb (13.0-17.5) gm/dL Hct (39.0-53.0) % RDW (11.5-15.5) % Neutrophils # (1.3-7.7) k/uL Sodium (137-145) mmol/L Glucose (74-99) mg/dL POC Glucose (mg/dL) 218 H 226 H 225 H (75-99) mg/dL Calcium (8.4-10.2) mg/dL 06/02/20 06/02/20 06/02/20 Range/Units 05:45 07:03 07:03 RBC 4.12 L (4.30-5.90) m/uL Hgb 12.9 L (13.0-17.5) gm/dL Hct 38.8 L (39.0-53.0) % RDW 15.7 H (11.5-15.5) % Neutrophils # 8.6 H (1.3-7.7) k/uL Sodium 133 L (137-145) mmol/L Glucose 135 H (74-99) mg/dL POC Glucose (mg/dL) 130 H (75-99) mg/dL Calcium 8.2 L (8.4-10.2) mg/dL
[2020-06-02 11:48] VITALS: BP 114/85; PULSE 100; TEMP 98.3
[2020-06-02 12:29] LABS: Glucose,Whole Blood 185 mg/dL (75-99)
[2020-06-02 14:28] VITALS: BMI 25.0
[2020-06-02] MEDS ORDERED: METOPROLOL TARTRATE 25 MG TAB PO SCH (16:00)
--- NOTE | 2020-06-02 22:53 | P.DS ---
Providers Date of admission: 05/28/20 11:27 Expected date of discharge: 06/02/20 Attending physician: Yonatan Cai Consults: 05/28/20 10:14 Consult Physician Urgent Consulting Provider: Robby Courtney Consult Reason/Comments: new onset afib Do you want consulting provider notified?: Yes Primary care physician: [facility] Course: Chief Complaint: Rapid heart rate History of presenting complaint: This is a very pleasant 70-year-old patient of Dr. Horta. Chronic stable medical conditions include GERD, hypertension, hyperlipidemia, kidney stones,. Patient had COVID 19 infection around last year. Patient has known kidney stones. Patient had a computed tomography scan of the abdomen and pelvis on 04/06/2020 showed a 5.6 cm exophytic right renal cyst. Subsequently developed gross hematuria. Cystoscopy in the office revealed multiple posterior bladder wall tumors. Patient was now brought in outpatient center for further cystoscopy with removal of tumor. In the preop area patient is found to be in atrial fibrillation with a rapid ventricular rate. Patient denies any chest pain or shortness of breath. Admitted to the cardiology floor. Started IV Cardizem drip. Also Lopressor. May 29-Bladder tumor was resected down to the muscle. Had worsening of creatinine. Computed tomography scan his abdomen negative for any hydronephrosis. Cystoscopy gram-negative for perforation. Patient had pain at the lumbosacral junction from rigidity. Responded well to Flexeril and heating pad. Given IV fluids.. Eliquis resumed Today-feeling well. Appetite improved. Some blood-tinged urine in the Ramírez catheter. Pain well controlled. Cleared by cardiology and urology. Bladder pathology pending. Discussion and discharge planning more than 35 minutes Liaison Planner: Dr. Angeles and partners from urology Dr. JAZMIN Gustafson-cardiology . Past medical history to include: GERD, hyperlipidemia, hypertension, prostate disorder, right controlled diabetes, psoriasis, gout, kidney stones, bladder tumor, COVID 19 around 2019 Social history: . No smoking. Alcohol rarely. Physical examination: VITAL SIGNS: 98.3, 100, 16, 1.4 with 85, 95% room air GENERAL: BMI 24.3, sitting up in bed, looking better EYES: Pupils equal. Conjunctiva normal. HEENT: External appearance of nose and ears normal, oral cavity grossly normal. NECK: JVD not raised; masses not palpable. HEART: Irregular heart sounds; no edema. LUNGS: Respiratory rate normal; clear to auscultation. ABDOMEN: Soft, nontender, liver spleen not palpable, no masses palpable. Ramírez catheter-clear urine PSYCH: Alert and oriented x3; mood and affect normal. MUSCULAR skeletal: Improved tenderness just lateral to the lumbosacral junction. INVESTIGATIONS, reviewed in the clinical context: June 02: White count 10.2 hemoglobin 12.9 potassium 4.1 creatinine 0.95 June 01: Potassium 4.5 bun 24 creatinine 1.58 Lumbosacral x-ray film personally reviewed by me shows L5 sacral junctions significant DJD May 31: White count 18 hemoglobin 13.4 platelets 221 potassium 4.4 bun 32 creatinine 1.66 Computed tomography scan abdomen and pelvis without contrast-no urinary bladder perforation. diverticulosis. Cystoscopy gram-negative for perforation May 30: White count 15.7 hemoglobin 13.7 potassium 5.2 bun 36 creatinine 1.37 May 29: White count of 13.9 hemoglobin 13.5 platelets 223 2-D echocardiogram-moderate concentric LVH, EF 50-55%, moderate mitral annual calcification moderate tricuspid regurgitation White count 9.3 hemoglobin 14.1 platelets 243 Accu-Cheks 219, 192, 419 Telemetry atrial fibrillation with a rapid ventricular rate Previous testing: Creatinine 0.93 on May 07 Assessment: -Possibly persistent atrial fibrillation with a rapid ventricular rate. - Controlled -GERD -Essential hypertension -Prostate disorder -Diet controlled diabetes. uncontrolled with hyperglycemia from patient received a dose of dexamethasone on presentation. -Psoriasis -Kidney stones -Bladder tumor -status post resection -Moderate tricuspid regurgitation -Hypertensive heart disease -Acute kidney injury patient's creatinine was 0.93 on May 07 worsening. Up to 1.66. No evidence of hydronephrosis. Good urine output. Improved with IV fluids. -Right posterior back pain possibly related lumbosacral junction DJD..- Responded well to Flexeril and heating pad. Disposition: Home Labs: CBC BMP-5 days Plan - Discharge Summary Discharge Rx Participant: No New Discharge Prescriptions: New Apixaban [Eliquis] 5 mg PO BID #60 tab Cyclobenzaprine [Flexeril] 5 mg PO TID PRN #30 tab PRN Reason: Spasms Acetaminophen Tab [Tylenol] 650 mg PO Q6HR PRN tab PRN Reason: Fever And/ Or Pain Metoprolol Tartrate [Lopressor] 25 mg PO TID #90 tab Continue Allopurinol 300 mg PO DAILY Simvastatin [Zocor] 20 mg PO HS metHOTREXate sodium [Methotrexate] 12.5 mg PO MANCUSO Folic Acid 1 mg PO HS Multivitamins, Thera [Multivitamin (formulary)] 1 tab PO DAILY Albuterol Sulfate [Proair Respiclick] 1 puff PO BID Discontinued amLODIPine [Norvasc] 5 mg PO DAILY lisinopriL [Zestril] 30 mg PO W/SUPPER Discharge Medication List Allopurinol 300 mg PO DAILY 12/18/13 [History] Folic Acid 1 mg PO HS 08/17/16 [History] Simvastatin [Zocor] 20 mg PO HS 08/17/16 [History] metHOTREXate sodium [Methotrexate] 12.5 mg PO MANCUSO 08/17/16 [History] Albuterol Sulfate [Proair Respiclick] 1 puff PO BID 05/22/20 [History] Multivitamins, Thera [Multivitamin (formulary)] 1 tab PO DAILY 05/22/20 [History] Apixaban [Eliquis] 5 mg PO BID #60 tab 05/29/20 [Rx] Acetaminophen Tab [Tylenol] 650 mg PO Q6HR PRN tab 06/02/20 [Rx] Cyclobenzaprine [Flexeril] 5 mg PO TID PRN #30 tab 06/02/20 [Rx] Metoprolol Tartrate [Lopressor] 25 mg PO TID #90 tab 06/02/20 [Rx] Follow up Appointment(s)/Referral(s): Prince Kaiser MD [STAFF PHYSICIAN] - 06/09/20 11:00 am (MONDAY) Robby Courtney MD [STAFF PHYSICIAN] - 2 Weeks (OFFICES WILL CALL WITH AN APPOINTMENT DATE AND TIME.) Patient Instructions/Handouts: A-fib (Atrial Fibrillation) (DC), Safe Use of Anticoagulants (DC) Activity/Diet/Wound Care/Special Instructions: Eliquis is covered by insurance, copay will be $47/month after deductible is met - per pharmacy you have $67.10 left towards your deductible so first refill may be $110.10. At time of discharge, Eliquis will be covered with a free 30day trial coupon and needs to be picked up from [facility] cbc/bmp -5 days. Discharge Disposition: HOME SELF-CARE
== END 2020-06-02 17:24 | disposition home or self-care (01) | DRG 988 ==
LOC: OR 08:10 → 3SCARD 11:27
PROVIDERS: ADMIT Hospitalist; ATTEND Hospitalist
PROC: 0TBB8ZZ Excision of Bladder, Via Natural or Artificial Opening Endoscopic (ICD-10-PCS; principal; 2020-05-28 09:30)
PROC: 0TJD8ZZ Inspection of Urethra, Via Natural or Artificial Opening Endoscopic (ICD-10-PCS; principal; 2020-05-28 09:30)
DX: I48.19 Other persistent atrial fibrillation (principal); N17.9 Acute kidney failure, unspecified; K21.9 Gastro-esophageal reflux disease without esophagitis; E78.5 Hyperlipidemia, unspecified; M10.9 Gout, unspecified; L40.9 Psoriasis, unspecified; E11.65 Type 2 diabetes mellitus with hyperglycemia; T38.0X5A Adverse effect of glucocorticoids and synthetic analogues, initial encounter; N42.9 Disorder of prostate, unspecified; N35.912 Unspecified bulbous urethral stricture, male; C67.2 Malignant neoplasm of lateral wall of bladder; C67.3 Malignant neoplasm of anterior wall of bladder; I08.1 Rheumatic disorders of both mitral and tricuspid valves; E11.649 Type 2 diabetes mellitus with hypoglycemia without coma; I11.9 Hypertensive heart disease without heart failure; N28.1 Cyst of kidney, acquired; M51.37 Other intervertebral disc degeneration, lumbosacral region; Z86.16 Personal history of COVID-19; Z87.442 Personal history of urinary calculi; Z87.01 Personal history of pneumonia (recurrent); Z90.89 Acquired absence of other organs; Z98.890 Other specified postprocedural states; Z82.49 Family history of ischemic heart disease and other diseases of the circulatory system; Z83.3 Family history of diabetes mellitus; Z83.1 Family history of other infectious and parasitic diseases; Z79.899 Other long term (current) drug therapy; Z87.448 Personal history of other diseases of urinary system; Z79.01 Long term (current) use of anticoagulants
CPT/HCPCS: 72100; 74176; 74430; 76770; 80048; 84439; 84443; 85025; 85610; 85730; 88307; 93005; 93306; 94640

== ENCOUNTER → 2020-06-25 | Outpatient (CLI) | payer MEDICARE ==
[2020-06-25 12:41] LABS: Anisocytosis Slight; Basophils % (A) 0 %; Eosinophils # (A) 0.1 k/uL (0-0.7); Eosinophils % (A) 1 %; HCT 37.3 % (39.0-53.0); HGB 12.2 gm/dL (13.0-17.5); Lymphocytes # (A) 1.6 k/uL (1.0-4.8); Lymphocytes % (A) 21 %; MCHC 32.6 g/dL (31.0-37.0); MCV 94.9 fL (80.0-100.0); Mean Platelet Volume 7.6; Monocytes # (A) 0.4 k/uL (0-1.0); Monocytes % (A) 6 %; Neutrophils # (A) 5.3 k/uL (1.3-7.7); Neutrophils % (A) 70 %; Platelet Count 337 k/uL (150-450); RBC 3.93 m/uL (4.30-5.90); RDW 16.8 % (11.5-15.5); WBC 7.5 k/uL (3.8-10.6)
[2020-06-25 12:53] LABS: Potassium 4.8 mmol/L (3.5-5.1)
== END | disposition home or self-care (01) ==
LOC: LABPAT 11:33
PROVIDERS: ATTEND Urology
DX: Z01.818 Encounter for other preprocedural examination (principal); E11.9 Type 2 diabetes mellitus without complications; C67.9 Malignant neoplasm of bladder, unspecified
CPT/HCPCS: 36415; 80048; 85025

== ENCOUNTER 2020-07-02 05:56 | Day surgery (SDC) | payer MEDICARE ==
--- NOTE | 2020-06-19 19:16 | P.GSHP ---
History of Present Illness H&P Date: 06/19/20 Chief Complaint: Bladder cancer The patient is a 70-year-old white male hospitalized in late March 2020 with COVID-19 pneumonia. He has a history of kidney stones. A CT scan of the abdomen and pelvis revealed a 5.6 cm exophytic right renal cyst was smaller adjacent cysts. He developed gross hematuria during that hospitalization, and follow-up office cystoscopy revealed multiple posterior bladder wall tumors. He was hospitalized in May 2020, at which time he was diagnosed with atrial fibrillation and subsequently underwent bladder tumor resection. The tumor involved virtually the entire posterior bladder wall and right lateral bladder wall, extending to the right anterolateral bladder wall. Pathology revealed high-grade urothelial carcinoma with focal lamina propria invasion. He now comes for re-resection. - Cardiovascular Cardiovascular: Reports irregular heart beat - Genitourinary (Male) Genitourinary: Reports as per HPI Past Medical History Past Medical History: GERD/Reflux, Hyperlipidemia, Hypertension, Pneumonia, Prostate Disorder, Skin Disorder Additional Past Medical History / Comment(s): DIET CONTROLLED DIABETIC NO MEDS DOES'NT CHECK BLOOD SUGARS.GOUT, PSORIASIS, kidney stones, uses oxygen 2L PRN, frquent urination, bladder tumor, pt states had COVID 2019 History of Any Multi-Drug Resistant Organisms: None Reported Past Surgical History: Heart Catheterization, Orthopedic Surgery, Tonsillectomy Additional Past Surgical History / Comment(s): SHATTERED RT KNEE CAP HAD SX HAD WIRES IN THEN HAD 2ND SX NOT SURE IF ALL WIRES STILL IN THERE. heart cath 12/24/13 noted in EMR Past Anesthesia/Blood Transfusion Reactions: No Reported Reaction Past Psychological History: No Psychological Hx Reported Smoking Status: Never smoker Past Alcohol Use History: Rare Past Drug Use History: None Reported - Past Family History Father Family Medical History: Coronary Artery Disease (CAD), Myocardial Infarction ([place]) Additional Family Medical History / Comment(s): AGE 66 MASSIVE [place] Mother Family Medical History: No Reported History, Diabetes Mellitus Additional Family Medical History / Comment(s): covid Medications and Allergies Home Medications Medication Instructions Recorded Confirmed Type Allopurinol 300 mg PO DAILY 12/18/13 05/22/20 History Folic Acid 1 mg PO HS 08/17/16 05/22/20 History Simvastatin [Zocor] 20 mg PO HS 08/17/16 05/22/20 History metHOTREXate sodium [Methotrexate] 12.5 mg PO MANCUSO 08/17/16 05/22/20 History Albuterol Sulfate [Proair 1 puff PO BID 05/22/20 05/22/20 History Respiclick] Multivitamins, Thera [Multivitamin 1 tab PO DAILY 05/22/20 05/22/20 History (formulary)] Apixaban [Eliquis] 5 mg PO BID #60 tab 05/29/20 Rx Acetaminophen Tab [Tylenol] 650 mg PO Q6HR PRN tab 06/02/20 Rx Cyclobenzaprine [Flexeril] 5 mg PO TID PRN #30 tab 06/02/20 Rx Metoprolol Tartrate [Lopressor] 25 mg PO TID #90 tab 06/02/20 Rx Allergies Allergy/AdvReac Type Severity Reaction Status Date / Time No Known Allergies Allergy Verified 05/28/20 08:40 Surgical - Exam - General well developed, well nourished, no distress - Respiratory normal respiratory effort, clear to auscultation - Cardiovascular Rhythm: regular Abnormal Heart Sounds: no systolic murmur, no diastolic murmur, no rub, no S3 Gallop, no S4 Gallop, no click, no other - Abdomen Abdomen: soft, non tender, no guarding, no rigid, no rebound - Genitourinary normal penis with no external lesions, testicles non-tender - Psychiatric oriented to time, oriented to person, oriented to place, speech is normal, memory intact Assessment and Plan (1) Malignant neoplasm of bladder, unspecified Status: Acute Code(s): C67.9 - MALIGNANT NEOPLASM OF BLADDER, UNSPECIFIED SNOMED Code(s): 731224800 Plan: The rationale for reresection has been reviewed in detail with the patient. He is aware of potential risks, which include anesthesia, bleeding, infection, bladder perforation, and postoperative urinary retention.
[2020-06-30 13:30] VITALS: BMI 25.0
[2020-07-02] MEDS ORDERED: ONDANSETRON 4 MG/2 ML VIAL IVP ONE (06:09)
[2020-07-02] MEDS ORDERED: LIDOCAINE 1% (10MG/ML) FOR IV START INTRADERMA PRN (06:09)
[2020-07-02 06:43] LABS: Glucose,Whole Blood 132 mg/dL (75-99)
[2020-07-02] MEDS: LACTATED RINGERS 1,000 ML IV SCH ×2 (06:45→07:01)
[2020-07-02] MEDS ORDERED: PROPOFOL 10 MG/ML 20 ML VIAL IV ONE (06:55)
[2020-07-02] MEDS ORDERED: SUCCINYLCHOLINE CHLORIDE 100 MG/5 ML SYR IV ONE (06:55)
[2020-07-02] MEDS ORDERED: NEOSTIGMINE 1 MG/ML 10 ML VIAL ONE (06:55)
[2020-07-02] MEDS ORDERED: ePHEDrine SULFATE/0.9% NACL/PF 50 MG/5 ML SYRINGE IV ONE (06:55)
[2020-07-02] MEDS ORDERED: fentaNYL (PF) 50 MCG/ML 2 ML AMP ONE (06:55)
[2020-07-02] MEDS ORDERED: HYDROmorphone (PF) 1 MG/ML ONE (06:55)
[2020-07-02] MEDS ORDERED: LIDOCAINE 1% INJ 10MG/ML (20 ML MDV) ONE (06:55)
[2020-07-02] MEDS ORDERED: GLYCOPYRROLATE 0.2 MG/ML 2 ML VIAL ONE (06:55)
[2020-07-02] MEDS ORDERED: ROCURONIUM 10 MG/ML (5 ML VIAL) IV ONE (06:55)
[2020-07-02] MEDS ORDERED: FUROSEMIDE 10 MG/ML 2 ML VIAL ONE (06:55)
[2020-07-02] MEDS ORDERED: MIDAZOLAM 2 MG/2 ML VIAL ONE (06:55)
[2020-07-02] MEDS ORDERED: HYDROmorphone 0.5 MG/0.5 ML SYRINGE IVP PRN (07:00)
[2020-07-02 08:40] VITALS: TEMP 97
--- NOTE | 2020-07-02 09:00 | P.OP ---
Date of Procedure: 07/02/20 Preoperative Diagnosis: Urothelial carcinoma of the bladder Postoperative Diagnosis: Same Procedure(s) Performed: Cystoscopy, TUR-BT (Large) Anesthesia: BOBA Surgeon: Prince Kaiser Estimated Blood Loss (ml): 10 IV fluids (ml): 850 Pathology: other (Tissue fragments) Condition: stable Disposition: PACU Indications for Procedure: The patient is a 70-year-old white male hospitalized in late March 2020 with COVID-19 pneumonia. He has a history of kidney stones. A CT scan of the abdomen and pelvis revealed a 5.6 cm exophytic right renal cyst was smaller adjacent cysts. He developed gross hematuria during that hospitalization, and follow-up office cystoscopy revealed multiple posterior bladder wall tumors. He was hospitalized in May 2020, at which time he was diagnosed with atrial fibrillation and subsequently underwent bladder tumor resection. The tumor involved virtually the entire posterior bladder wall and right lateral bladder wall, extending to the right anterolateral bladder wall. Pathology revealed high-grade urothelial carcinoma with focal lamina propria invasion. He now comes for re-resection. Operative Findings: Edema of posterior and right lateral bladder joshi. No tumors seen. Description of Procedure: The patient was taken in the operating room and placed in the dorsal lithotomy position, with his legs supported in Arnoldo stirrups. The external genitalia was prepped and draped sterilely. The 25-Moldovan ACMI resectoscope sheath was introduced into the bladder under direct vision. The bladder was inspected. The ureteral orifices could not be identified. Edema was noted to involve the posterior bladder wall and right lateral bladder wall. No tumors were seen. The prostatic urethra was only partially occluded. No urothelial changes were seen within the prostatic urethra. Using the bipolar cutting loop, the edematous tissue on the posterior bladder wall and right lateral bladder wall was resected down to the muscle. Excellent hemostasis was attained. The resected tissue was saved and sent for pathologic examination. An 18-Moldovan Ramírez catheter was inserted. The return was clear. The patient tolerated the procedure well. He was taken to the recovery room in stable condition.
[2020-07-02 09:32] VITALS: RESP 16
[2020-07-02 10:36] VITALS: BP 164/90; PULSE 88
== END 2020-07-02 10:38 | disposition home or self-care (01) ==
LOC: OR 05:56
PROVIDERS: ATTEND Urology
DX: C67.9 Malignant neoplasm of bladder, unspecified (principal); N41.9 Inflammatory disease of prostate, unspecified; Z87.442 Personal history of urinary calculi; I10 Essential (primary) hypertension; E78.00 Pure hypercholesterolemia, unspecified; E78.5 Hyperlipidemia, unspecified; Z86.16 Personal history of COVID-19; R35.0 Frequency of micturition; Z87.01 Personal history of pneumonia (recurrent); E11.9 Type 2 diabetes mellitus without complications; M10.9 Gout, unspecified; L40.9 Psoriasis, unspecified; Z98.890 Other specified postprocedural states; Q61.01 Congenital single renal cyst; I48.19 Other persistent atrial fibrillation; Z90.89 Acquired absence of other organs; Z82.49 Family history of ischemic heart disease and other diseases of the circulatory system; Z83.3 Family history of diabetes mellitus; Z83.1 Family history of other infectious and parasitic diseases; Z79.01 Long term (current) use of anticoagulants; Z99.81 Dependence on supplemental oxygen; Z79.899 Other long term (current) drug therapy
CPT/HCPCS: 88305; 85730; 88307; 52240; J2250; J1940; J2710; J0690; J2405; J2001; J3010; J1170; J0330; J2704

== ENCOUNTER 2020-07-04 09:18 | Inpatient (IN) | payer MEDICARE ==
--- NOTE | 2020-07-04 09:34 | ED ---
General Adult HPI - General Chief complaint: Urogenital Stated complaint: blood in urine-post op Time Seen by Provider: 07/04/20 09:22 Source: patient, RN notes reviewed Mode of arrival: ambulatory Limitations: no limitations - History of Present Illness Initial comments: Patient is a pleasant 70-year-old male presenting to the emergency department with concerns regarding blockage of his Ramírez catheter. Patient states he did have also from his bladder [address] Angeles. Patient is on Eliquis. Patient did restart this. Patient is having blood in the catheter and his clotting and not fully emptying. Patient does have some super pubic fullness. Patient also complains of constipation. Patient is passing gas. - Related Data Home Medications Medication Instructions Recorded Confirmed Allopurinol 300 mg PO DAILY 12/18/13 07/04/20 Folic Acid 1 mg PO HS 08/17/16 07/04/20 Simvastatin [Zocor] 20 mg PO HS 08/17/16 07/04/20 metHOTREXate sodium [Methotrexate] 17.5 mg PO MANCUSO 08/17/16 07/04/20 Multivitamins, Thera [Multivitamin 1 tab PO DAILY 05/22/20 07/04/20 (formulary)] Metoprolol Tartrate [Lopressor] 25 mg PO BID 06/30/20 07/04/20 Albuterol Sulfate [Proair Hfa] 2 puff INHALATION RT-HS 07/04/20 07/04/20 amLODIPine [Norvasc] 10 mg PO DAILY 07/04/20 07/04/20 Previous Rx's Medication Instructions Recorded Apixaban [Eliquis] 5 mg PO BID #60 tab 05/29/20 Acetaminophen Tab [Tylenol] 650 mg PO Q6HR PRN tab 06/02/20 Allergies Allergy/AdvReac Type Severity Reaction Status Date / Time No Known Allergies Allergy Verified 07/04/20 10:10 Review of Systems ROS Statement: Those systems with pertinent positive or pertinent negative responses have been documented in the HPI. ROS Other: All systems not noted in ROS Statement are negative. Constitutional: Denies: fever Eyes: Denies: eye pain ENT: Denies: ear pain Respiratory: Denies: cough Cardiovascular: Denies: chest pain Endocrine: Denies: fatigue Gastrointestinal: Reports: as per HPI, constipation. Denies: abdominal pain Genitourinary: Reports: urgency, hematuria Musculoskeletal: Denies: back pain Skin: Denies: rash Past Medical History Past Medical History: GERD/Reflux, Hyperlipidemia, Hypertension, Pneumonia, Prostate Disorder, Skin Disorder Additional Past Medical History / Comment(s): DIET CONTROLLED DIABETIC NO MEDS DOES'NT CHECK BLOOD SUGARS.GOUT, PSORIASIS, kidney stones, uses oxygen 2L PRN, frquent urination, bladder tumor, pt states had COVID Thanksgi2019 History of Any Multi-Drug Resistant Organisms: None Reported Past Surgical History: Bladder Surgery Additional Past Surgical History / Comment(s): SHATTERED RT KNEE CAP HAD SX HAD WIRES IN THEN HAD 2ND SX NOT SURE IF ALL WIRES STILL IN THERE. heart cath 12/24/13 noted in EMR Past Anesthesia/Blood Transfusion Reactions: No Reported Reaction Past Psychological History: No Psychological Hx Reported Smoking Status: Never smoker Past Alcohol Use History: None Reported Past Drug Use History: None Reported - Past Family History Father Family Medical History: Coronary Artery Disease (CAD), Myocardial Infarction ([place]) Additional Family Medical History / Comment(s): AGE 66 MASSIVE [place] Mother Family Medical History: No Reported History, Diabetes Mellitus Additional Family Medical History / Comment(s): covid 19 last thanksgi General Exam Limitations: no limitations General appearance: alert, in no apparent distress Head exam: Present: normocephalic Eye exam: Present: normal appearance, PERRL Neck exam: Present: normal inspection Respiratory exam: Present: normal lung sounds bilaterally Cardiovascular Exam: Present: regular rate, normal rhythm GI/Abdominal exam: Present: soft. Absent: distended, tenderness exam: Present: normal inspection, other (Ramírez catheter is present with blood.) Extremities exam: Present: normal inspection Neurological exam: Present: alert Psychiatric exam: Present: normal affect, normal mood Skin exam: Present: normal color Course Vital Signs 07/04/20 09:19 Temperature 98.1 F Pulse Rate 112 H Respiratory 18 Rate Blood Pressure 181/100 O2 Sat by Pulse 95 Oximetry Medical Decision Making - Medical Decision Making Patient evaluated and resting comfortably in bed. Patient and family updated on results and need for follow-up. Patient advised to hold Eliquis. Patient would like to take home medication for constipation rather than taking here. - Radiology Data Radiology results: image reviewed ([facility] x-ray does show some increased stool. No obstruction.) Disposition Clinical Impression: Hematuria, Urinary retention, Constipation Disposition: HOME SELF-CARE Condition: Stable Instructions (If sedation given, give patient instructions): Urinary Retention in Men (ED), Hematuria (ED), High Fiber Diet (ED), Constipation (ED) Additional Instructions: Hold Eliquis. Please follow-up with Dr. Angeles in the next couple days for recheck. Return for not passing urine, abdominal pain, not passing stool, vomiting, fevers, worsening or changing symptoms or other concerns. Is patient prescribed a controlled substance at d/c from ED?: No Referrals: Ang Horta MD [Primary Care Provider] - 1-2 days Prince Kaiser MD [STAFF PHYSICIAN] - 1-2 days Time of Disposition: 10:43
--- NOTE | 2020-07-04 10:22 | XR ---
EXAMINATION TYPE: XR abdomen 1V DATE OF EXAM: 07/04/2020 10:01 AM CLINICAL HISTORY: Constipation and gross hematuria. TECHNIQUE: Two Upright KUB images of the abdomen are obtained. COMPARISON: CT abdomen and pelvis May 31, 2020. FINDINGS: Scattered gas is seen in non-distended stomach and small bowel loops. Gas and fecal materia l is seen in non-distended colon. Lung bases are clear. Overlying vascular calcification redemonstrat ed. Mild to moderate axial joint space loss and spurring in both hips. No free air. IMPRESSION: Overall nonobstructive bowel gas pattern. Source of hematuria is not identified.
[2020-07-04] MEDS ORDERED: LACTULOSE 20 GM/30 ML CUP PO ONE (10:44)
[2020-07-04] MEDS ORDERED: bisacodyL 10 MG SUPP RECTAL STA (10:44)
[2020-07-04] MEDS ORDERED: HYDROmorphone 0.5 MG/0.5 ML SYRINGE IVP STA (11:43)
[2020-07-04 12:04] LABS: Anisocytosis Slight; Basophils % (A) 0 %; Eosinophils # (A) 0.2 k/uL (0-0.7); Eosinophils % (A) 2 %; HCT 36.6 % (39.0-53.0); HGB 12.3 gm/dL (13.0-17.5); Lymphocytes # (A) 1.5 k/uL (1.0-4.8); Lymphocytes % (A) 14 %; MCH 31.3 pg (25.0-35.0); MCHC 33.6 g/dL (31.0-37.0); MCV 92.9 fL (80.0-100.0); Mean Platelet Volume 7.5; Monocytes # (A) 0.5 k/uL (0-1.0); Monocytes % (A) 5 %; Neutrophils # (A) 8.7 k/uL (1.3-7.7); Neutrophils % (A) 78 %; Platelet Count 321 k/uL (150-450); RBC 3.94 m/uL (4.30-5.90); RDW 16.6 % (11.5-15.5); WBC 11.1 k/uL (3.8-10.6)
[2020-07-04 12:14] LABS: Albumin 3.8 g/dL (3.5-5.0); Calcium 9.6 mg/dL (8.4-10.2); Potassium 3.8 mmol/L (3.5-5.1); Prothrombin Time 10.7 sec (9.0-12.0); Total Bilirubin 0.6 mg/dL (0.2-1.3); Total Protein 6.4 g/dL (6.3-8.2)
[2020-07-04] MEDS ORDERED: HYDROmorphone 1 MG/ML 1 ML SYRINGE IVP STA (12:36)
--- NOTE | 2020-07-04 13:29 | ED ---
Medical Decision Making - Medical Decision Making Patient still complains of discomfort. As previously discussed with Dr. Newman he is willing to admit the patient for observation. Patient states he is still. Comfortable and does not want to be discharged. Nutrition patient blood pressure is still running high and will need additional medication for this. Patient states he was recently decreased from 3 blood pressure pills down to 1. - Lab Data Result diagrams: 07/04/20 11:57 07/04/20 11:57 Lab Results 07/04/20 07/04/20 07/04/20 Range/Units 11:57 11:57 11:57 WBC 11.1 H (3.8-10.6) k/uL RBC 3.94 L (4.30-5.90) m/uL Hgb 12.3 L (13.0-17.5) gm/dL Hct 36.6 L (39.0-53.0) % MCV 92.9 (80.0-100.0) fL MCH 31.3 (25.0-35.0) pg MCHC 33.6 (31.0-37.0) g/dL RDW 16.6 H (11.5-15.5) % Plt Count 321 (150-450) k/uL MPV 7.5 Neutrophils % 78 % Lymphocytes % 14 % Monocytes % 5 % Eosinophils % 2 % Basophils % 0 % Neutrophils # 8.7 H (1.3-7.7) k/uL Lymphocytes # 1.5 (1.0-4.8) k/uL Monocytes # 0.5 (0-1.0) k/uL Eosinophils # 0.2 (0-0.7) k/uL Basophils # 0.0 (0-0.2) k/uL Anisocytosis Slight PT 10.7 (9.0-12.0) sec INR 1.0 (<1.2) APTT 26.0 (22.0-30.0) sec Sodium 137 (137-145) mmol/L Potassium 3.8 (3.5-5.1) mmol/L Chloride 104 (98-107) mmol/L Carbon Dioxide 18 L (22-30) mmol/L Anion Gap 15 mmol/L BUN 14 (9-20) mg/dL Creatinine 1.17 (0.66-1.25) mg/dL Est GFR (CKD-EPI)AfAm 72 (>60 ml/min/1.73 sqM) Est GFR (CKD-EPI)NonAf 62 (>60 ml/min/1.73 sqM) Glucose 164 H (74-99) mg/dL Calcium 9.6 (8.4-10.2) mg/dL Total Bilirubin 0.6 (0.2-1.3) mg/dL AST 21 (17-59) U/L ALT 21 (4-49) U/L Alkaline Phosphatase 76 (38-126) U/L Total Protein 6.4 (6.3-8.2) g/dL Albumin 3.8 (3.5-5.0) g/dL Amylase 117 H (30-110) U/L Lipase 129 (23-300) U/L Disposition Clinical Impression: Hematuria, Urinary retention, Constipation, Hypertension Disposition: ADMITTED IP TO THIS [facility] Condition: Stable Instructions (If sedation given, give patient instructions): Constipation (ED), Urinary Retention in Men (ED), High Fiber Diet (ED), Hematuria (ED) Additional Instructions: Hold Eliquis. Please follow-up with Dr. Angeles in the next couple days for recheck. Return for not passing urine, abdominal pain, not passing stool, vomiting, fevers, worsening or changing symptoms or other concerns. Referrals: Ang Horta MD [Primary Care Provider] - 1-2 days Prince Kaiser MD [STAFF PHYSICIAN] - 1-2 days
[2020-07-04] MEDS ORDERED: hydrALAZINE HCL 20 MG/ML 1 ML VIAL IVP STA (13:30)
[2020-07-04] MEDS ORDERED: ACETAMINOPHEN TAB 325 MG TAB PO PRN (13:31)
[2020-07-04] MEDS ORDERED: NALOXONE 0.4 MG/ML 1 ML VIAL IV PRN (13:31)
[2020-07-04] MEDS ORDERED: NA PHOS,M-B/NA PHOS,DI-BA 133 ML ENEMA RECTAL PRN (13:31)
[2020-07-04] MEDS ORDERED: bisacodyL 10 MG SUPP RECTAL PRN (13:31)
[2020-07-04] MEDS ORDERED: ONDANSETRON 4 MG/2 ML VIAL IVP STA (15:29)
[2020-07-04] MEDS: SODIUM CHLORIDE 0.9% 1,000 ML IV SCH (15:34)
[2020-07-04] MEDS: HYDROmorphone 1 MG/ML 1 ML SYRINGE IVP PRN (16:52)
--- NOTE | 2020-07-04 18:41 | P.GSHP ---
History of Present Illness H&P Date: 07/04/20 The patient is a 70-year-old gentleman well known to Dr Kaiser for bladder cancer. He had a resection several weeks ago and then a recent resection of tumor this week. The resection on07/02/2020 was relatively uneventful. There is a fair amount of edema and erythema of the right posterior lateral wall. The patient's urine was clear upon discharge. He started his Ellik was back yesterday and then began with bleeding today. He presented emergency room in clot urinary retention. The bleeding persisted thus he was brought in the hospital for observation and monitoring of the bleeding. I was asked to see the patient and Dr. Kaiser's absence. The patient has a 16-Hebrew indwelling catheter and there is dark blood emanating from the catheter. The patient is uncomfortable. Upon reviewing the operative note the prostate did not appear to be big or bloody. The resection is of moderate size but there is good hemostasis intraoperatively. - Constitutional Constitutional: Denies chills, Denies fever - EENT Eyes: denies blurred vision, denies pain Ears, nose, mouth and throat: Denies headache, Denies sore throat - Cardiovascular Cardiovascular: Denies chest pain, Denies shortness of breath - Respiratory Respiratory: Denies cough, Denies 7 - Gastrointestinal Gastrointestinal: Denies abdominal pain, Denies diarrhea, Denies nausea, Denies vomiting - Genitourinary (Female) Genitourinary: Denies dysuria, Denies hematuria - Genitourinary (Male) Genitourinary: Denies dysuria, Denies hematuria - Musculoskeletal Musculoskeletal: Denies myalgias - Integumentary Integumentary: Denies pruritus, Denies rash - Neurological Neurological: Denies numbness, Denies weakness - Psychiatric Psychiatric: Denies anxiety, Denies depression - Endocrine Endocrine: Denies fatigue, Denies weight change Past Medical History Past Medical History: GERD/Reflux, Hyperlipidemia, Hypertension, Pneumonia, Prostate Disorder, Skin Disorder Additional Past Medical History / Comment(s): DIET CONTROLLED DIABETIC NO MEDS DOES'NT CHECK BLOOD SUGARS.GOUT, PSORIASIS, kidney stones, uses oxygen 2L PRN, frquent urination, bladder tumor, pt states had COVID 2019 History of Any Multi-Drug Resistant Organisms: None Reported Past Surgical History: Bladder Surgery Additional Past Surgical History / Comment(s): ZEINATTERED RT KNEE CAP HAD SX HAD WIRES IN THEN HAD 2ND SX NOT SURE IF ALL WIRES STILL IN THERE. heart cath 12/24/13 noted in EMR Past Anesthesia/Blood Transfusion Reactions: No Reported Reaction Past Psychological History: No Psychological Hx Reported Smoking Status: Never smoker Past Alcohol Use History: None Reported Past Drug Use History: None Reported - Past Family History Father Family Medical History: Coronary Artery Disease (CAD), Myocardial Infarction ([place]) Additional Family Medical History / Comment(s): AGE 66 MASSIVE [place] Mother Family Medical History: No Reported History, Diabetes Mellitus Additional Family Medical History / Comment(s): covid 19 last thanksgiving Medications and Allergies Home Medications Medication Instructions Recorded Confirmed Type Allopurinol 300 mg PO DAILY 12/18/13 07/04/20 History Folic Acid 1 mg PO HS 08/17/16 07/04/20 History Simvastatin [Zocor] 20 mg PO HS 08/17/16 07/04/20 History metHOTREXate sodium [Methotrexate] 17.5 mg PO MANCUSO 08/17/16 07/04/20 History Multivitamins, Thera [Multivitamin 1 tab PO DAILY 05/22/20 07/04/20 History (formulary)] Apixaban [Eliquis] 5 mg PO BID #60 tab 05/29/20 07/04/20 Rx Acetaminophen Tab [Tylenol] 650 mg PO Q6HR PRN tab 06/02/20 07/04/20 Rx Metoprolol Tartrate [Lopressor] 25 mg PO BID 06/30/20 07/04/20 History Albuterol Sulfate [Proair Hfa] 2 puff INHALATION RT-HS 07/04/20 07/04/20 History amLODIPine [Norvasc] 10 mg PO DAILY 07/04/20 07/04/20 History Allergies Allergy/AdvReac Type Severity Reaction Status Date / Time No Known Allergies Allergy Verified 07/04/20 10:10 Surgical - Exam Vital Signs Temp Pulse Resp BP Pulse Ox 98.1 F 112 H 18 181/100 95 07/04/20 09:19 07/04/20 09:19 07/04/20 09:19 07/04/20 09:19 07/04/20 09:19 - General well developed, well nourished, moderate distress - Eyes PERRL - ENT no hearing loss - Neck trachea midline - Respiratory normal expansion, normal respiratory effort - Cardiovascular Rhythm: regular - Abdomen Abdomen: soft, non tender - Genitourinary Indwelling 16-Hebrew Ramírez catheter with dark blood urine. normal penis with no external lesions, testicles present - Integumentary no rash, no growths - Neurologic normal coordination, normal sensation - Musculoskeletal normal posture - Psychiatric oriented to time, oriented to person, oriented to place, speech is normal, memory intact Results - Labs 07/04/20 11:57 07/04/20 11:57 Abnormal Lab Results - Last 24 Hours (Table) 07/04/20 07/04/20 Range/Units 11:57 11:57 WBC 11.1 H (3.8-10.6) k/uL RBC 3.94 L (4.30-5.90) m/uL Hgb 12.3 L (13.0-17.5) gm/dL Hct 36.6 L (39.0-53.0) % RDW 16.6 H (11.5-15.5) % Neutrophils # 8.7 H (1.3-7.7) k/uL Carbon Dioxide 18 L (22-30) mmol/L Glucose 164 H (74-99) mg/dL Amylase 117 H (30-110) U/L Diabetes panel 07/04/20 Range/Units 11:57 Sodium 137 (137-145) mmol/L Potassium 3.8 (3.5-5.1) mmol/L Chloride 104 (98-107) mmol/L Carbon Dioxide 18 L (22-30) mmol/L BUN 14 (9-20) mg/dL Creatinine 1.17 (0.66-1.25) mg/dL Glucose 164 H (74-99) mg/dL Calcium 9.6 (8.4-10.2) mg/dL AST 21 (17-59) U/L ALT 21 (4-49) U/L Alkaline Phosphatase 76 (38-126) U/L Total Protein 6.4 (6.3-8.2) g/dL Albumin 3.8 (3.5-5.0) g/dL Calcium panel 07/04/20 Range/Units 11:57 Calcium 9.6 (8.4-10.2) mg/dL Albumin 3.8 (3.5-5.0) g/dL Pituitary panel 07/04/20 Range/Units 11:57 Sodium 137 (137-145) mmol/L Potassium 3.8 (3.5-5.1) mmol/L Chloride 104 (98-107) mmol/L Carbon Dioxide 18 L (22-30) mmol/L BUN 14 (9-20) mg/dL Creatinine 1.17 (0.66-1.25) mg/dL Glucose 164 H (74-99) mg/dL Calcium 9.6 (8.4-10.2) mg/dL Adrenal panel 07/04/20 Range/Units 11:57 Sodium 137 (137-145) mmol/L Potassium 3.8 (3.5-5.1) mmol/L Chloride 104 (98-107) mmol/L Carbon Dioxide 18 L (22-30) mmol/L BUN 14 (9-20) mg/dL Creatinine 1.17 (0.66-1.25) mg/dL Glucose 164 H (74-99) mg/dL Calcium 9.6 (8.4-10.2) mg/dL Total Bilirubin 0.6 (0.2-1.3) mg/dL AST 21 (17-59) U/L ALT 21 (4-49) U/L Alkaline Phosphatase 76 (38-126) U/L Total Protein 6.4 (6.3-8.2) g/dL Albumin 3.8 (3.5-5.0) g/dL Assessment and Plan Assessment: Impression: Bladder cancer with postoperative bleeding elevated by Eliquis Recommendations: Irrigate his catheter and clarify the status of his bladder supposedly determine whether he'll need intraoperative intervention. I will hold the Eliquis Time with Patient: Greater than 30
--- NOTE | 2020-07-04 18:43 | P.PCN ---
Date of Procedure: 07/04/20 Preoperative Diagnosis: Clot urinary retention post-TURBT Postoperative Diagnosis: Same Procedure(s) Performed: Catheter exchange, irrigation of bladder, placement of 3-way catheter with irrigation Anesthesia: local Surgeon: Jamel Gunter Pathology: none sent Condition: stable Disposition: floor Indications for Procedure: The patient is in clot urinary retention. I will exchange his catheter and irrigate clot to liberate him of the urine retention. Description of Procedure: At the bedside the 16-Gabonese Ramírez catheters removed. A 20-Gabonese coud-tip catheter is introduced in the bladder. I irrigate the bladder and there does not appear to be any clot. There is fresh bleeding. I thus we'll place a three-way catheter. A 22-Gabonese three-way catheter with 30 mL balloon is introduced in the bladder. 15 mL of fluid was instilled into the bladder. The bladder is irrigated and there is some small amount of clot. I place it on a normal saline irrigation with light pink urine return. Impression: Clot urinary retention secondary to bladder or prostate bleeding. Hopefully with continuous irrigation we can avoid returning him to the operating room. I will hold his anticoagulation.
[2020-07-04] MEDS: METOPROLOL TARTRATE 25 MG TAB PO SCH (19:18)
[2020-07-04] MEDS ORDERED: SODIUM CHLORIDE 0.9% IRRIGATIO 3,000 ML IRRIGATION ONE (22:23)
[2020-07-04] MEDS: SODIUM CHLORIDE 0.9% IRRIGATIO 3,000 ML IRRIGATION SCH (22:56)
[2020-07-05] MEDS: HYDROmorphone 1 MG/ML 1 ML SYRINGE IVP PRN ×2 (00:22→08:45)
[2020-07-05] MEDS: LACTULOSE 20 GM/30 ML CUP PO PRN (07:02)
[2020-07-05] MEDS: amLODIPine 10 MG TAB PO SCH (07:03)
[2020-07-05] MEDS: METOPROLOL TARTRATE 25 MG TAB PO SCH ×2 (07:03→20:36)
[2020-07-05] MEDS ORDERED: ACETAMINOPHEN TAB 325 MG TAB PO PRN (09:23)
[2020-07-05] MEDS ORDERED: metHOTREXate sodium 2.5 MG TAB PO SCH (09:30)
[2020-07-05] MEDS ORDERED: HYDROcodone/APAP 5-325MG 1 EACH TAB PO PRN (09:58)
[2020-07-05] MEDS: ONDANSETRON 4 MG/2 ML VIAL IVP PRN (10:07)
--- NOTE | 2020-07-05 10:46 | P.PN ---
Subjective Progress Note Date: 07/05/20 The patient is in the hospital for clot urinary retention post TUR bladder tumor. The patient had catheter irrigation and subsequent continuous bladder irrigation. The urine is very light pink this morning with a medium irrigation. He is feeling much better. His abdomen is soft. His vital signs are stable. Hemoglobin is pending. We'll continue with the irrigation for another 24 hours. Hopefully we will not need to return to the operating room. The patient is off his anticoagulation at present. Objective - Vital Signs Vital signs: Vital Signs Temp 97.9 F 07/05/20 07:00 Pulse 80 07/05/20 07:00 Resp 14 07/05/20 07:00 BP 158/85 07/05/20 07:00 Pulse Ox 97 07/05/20 07:00 Intake & Output 07/04/20 07/05/20 07/05/20 18:59 06:59 18:59 Intake Total 320 Output Total 200 53848 1000 Balance -200 -97792 -1000 Weight 70.307 kg Intake: Intake, IV Titration 320 Amount Sodium Chloride 0.9% 1, 320 000 ml @ 20 mls/hr IV . Q24H [facility] Rx#:[id number] Output: Urine 200 23133 1000 Uretheral (Ramírez) 200 Other: Voiding Method Indwelling Catheter Indwelling Catheter Indwelling Catheter # Voids 900 - Labs CBC & Chem 7: 07/04/20 11:57 07/04/20 11:57 Labs: Abnormal Lab Results - Last 24 Hours (Table) 07/04/20 07/04/20 Range/Units 11:57 11:57 WBC 11.1 H (3.8-10.6) k/uL RBC 3.94 L (4.30-5.90) m/uL Hgb 12.3 L (13.0-17.5) gm/dL Hct 36.6 L (39.0-53.0) % RDW 16.6 H (11.5-15.5) % Neutrophils # 8.7 H (1.3-7.7) k/uL Carbon Dioxide 18 L (22-30) mmol/L Glucose 164 H (74-99) mg/dL Amylase 117 H (30-110) U/L
[2020-07-05 12:49] LABS: Anisocytosis Slight; Basophils % (A) 0 %; Eosinophils % (A) 0 %; HCT 30.9 % (39.0-53.0); HGB 10.3 gm/dL (13.0-17.5); Lymphocytes # (A) 0.7 k/uL (1.0-4.8); Lymphocytes % (A) 5 %; MCH 31.7 pg (25.0-35.0); MCHC 33.4 g/dL (31.0-37.0); MCV 94.8 fL (80.0-100.0); Mean Platelet Volume 7.4; Monocytes # (A) 0.9 k/uL (0-1.0); Monocytes % (A) 6 %; Neutrophils % (A) 88 %; Platelet Count 263 k/uL (150-450); RBC 3.26 m/uL (4.30-5.90); RDW 16.8 % (11.5-15.5); WBC 13.7 k/uL (3.8-10.6)
--- NOTE | 2020-07-05 13:27 | P.CONS ---
History of Present Illness - Reason for Consult Leukocytosis - History of Present Illness Patient is on an-year-old male came in because of hematuria. Patient is on Eliquis. Patient during his recent hospitalization and procedure and resection of bladder mass was told not to continue Eliquis. Patient has been taking Eliquis and his last dose was yesterday morning. Patient given with hematuria again patient underwent cystoscopy again with clot removal and patient was started on continuous irrigation. Patient urine at this time is light pinkish in color. Eliquis is being held. Patient denied any fever chills patient does have leukocytosis. Urinalysis is not available Review of Systems REVIEW OF SYSTEMS: CONSTITUTIONAL: No fever, no malaise, no fatigue. HEENT: No recent visual problems or hearing problems. Denied any sore throat. CARDIOVASCULAR: No chest pain, orthopnea, PND, no palpitations, no syncope. PULMONARY: No shortness of breath, no cough, no hemoptysis. GASTROINTESTINAL: No diarrhea, no nausea, no vomiting, no abdominal pain. NEUROLOGICAL: No headaches, no weakness, no numbness. HEMATOLOGICAL: Denies any bleeding or petechiae. GENITOURINARY: Denies any burning micturition, frequency, or urgency. MUSCULOSKELETAL/RHEUMATOLOGICAL: Denies any joint pain, swelling, or any muscle pain. ENDOCRINE: Denies any polyuria or polydipsia. The rest of the 14-point review of systems is negative. Past Medical History Past Medical History: GERD/Reflux, Hyperlipidemia, Hypertension, Pneumonia, Prostate Disorder, Skin Disorder Additional Past Medical History / Comment(s): DIET CONTROLLED DIABETIC NO MEDS DOES'NT CHECK BLOOD SUGARS.GOUT, PSORIASIS, kidney stones, uses oxygen 2L PRN, frquent urination, bladder tumor, pt states had COVID 2019 History of Any Multi-Drug Resistant Organisms: None Reported Past Surgical History: Bladder Surgery Additional Past Surgical History / Comment(s): SHATTERED RT KNEE CAP HAD SX HAD WIRES IN THEN HAD 2ND SX NOT SURE IF ALL WIRES STILL IN THERE. heart cath 12/24/13 noted in EMR Past Anesthesia/Blood Transfusion Reactions: No Reported Reaction Past Psychological History: No Psychological Hx Reported Smoking Status: Never smoker Past Alcohol Use History: None Reported Past Drug Use History: None Reported - Past Family History Father Family Medical History: Coronary Artery Disease (CAD), Myocardial Infarction (VT) Additional Family Medical History / Comment(s): AGE 66 MASSIVE VT Mother Family Medical History: No Reported History, Diabetes Mellitus Additional Family Medical History / Comment(s): covid 19 last thanksgiving Medications and Allergies Home Medications Medication Instructions Recorded Confirmed Type Allopurinol 300 mg PO DAILY 12/18/13 07/04/20 History Folic Acid 1 mg PO HS 08/17/16 07/04/20 History Simvastatin [Zocor] 20 mg PO HS 08/17/16 07/04/20 History metHOTREXate sodium [Methotrexate] 17.5 mg PO MANCUSO 08/17/16 07/04/20 History Multivitamins, Thera [Multivitamin 1 tab PO DAILY 05/22/20 07/04/20 History (formulary)] Apixaban [Eliquis] 5 mg PO BID #60 tab 05/29/20 07/04/20 Rx Acetaminophen Tab [Tylenol] 650 mg PO Q6HR PRN tab 06/02/20 07/04/20 Rx Metoprolol Tartrate [Lopressor] 25 mg PO BID 06/30/20 07/04/20 History Albuterol Sulfate [Proair Hfa] 2 puff INHALATION RT-HS 07/04/20 07/04/20 History amLODIPine [Norvasc] 10 mg PO DAILY 07/04/20 07/04/20 History Allergies Allergy/AdvReac Type Severity Reaction Status Date / Time No Known Allergies Allergy Verified 07/04/20 10:10 Physical Exam Vitals: Vital Signs Temp Pulse Pulse Resp BP BP Pulse Ox 07/05/20 07:00 97.9 F 80 14 158/85 97 07/05/20 01:54 97.9 F 71 17 120/74 94 L 07/04/20 20:00 97.9 F 110 H 18 130/83 94 L 07/04/20 16:22 98.5 F 119 H 20 155/97 95 07/04/20 15:34 114 H 17 137/77 96 Intake and Output 07/04/20 07/05/20 07/05/20 22:59 06:59 14:59 Intake Total 160 160 Output Total 53884 72969 1000 Balance -94955 -56905 -1000 Intake: Intake, IV Titration 160 160 Amount Sodium Chloride 0.9% 1, 160 160 000 ml @ 20 mls/hr IV . Q24H [facility] Rx#:[id number] Output: Urine 34286 28558 1000 Other: Voiding Method Indwelling Catheter Indwelling Catheter Indwelling Catheter # Voids 900 PHYSICAL EXAMINATION: GENERAL: The patient is alert and oriented x3, not in any acute distress. Well developed, well nourished. HEENT: Pupils are round and equally reacting to light. EOMI. No scleral icterus. No conjunctival pallor. Normocephalic, atraumatic. No pharyngeal erythema. No thyromegaly. CARDIOVASCULAR: S1 and S2 present. No murmurs, rubs, or gallops. PULMONARY: Chest is clear to auscultation, no wheezing or crackles. ABDOMEN: Soft, nontender, nondistended, normoactive bowel sounds. No palpable organomegaly. Has a Ramírez catheter as mentioned above MUSCULOSKELETAL: No joint swelling or deformity. EXTREMITIES: No cyanosis, clubbing, or pedal edema. NEUROLOGICAL: Gross neurological examination did not reveal any focal deficits. SKIN: No rashes. Results CBC & Chem 7: 07/05/20 12:30 07/04/20 11:57 Labs: Abnormal Lab Results - Last 24 Hours (Table) 07/05/20 Range/Units 12:30 WBC 13.7 H (3.8-10.6) k/uL RBC 3.26 L (4.30-5.90) m/uL Hgb 10.3 L (13.0-17.5) gm/dL Hct 30.9 L (39.0-53.0) % RDW 16.8 H (11.5-15.5) % Neutrophils # 12.0 H (1.3-7.7) k/uL Lymphocytes # 0.7 L (1.0-4.8) k/uL Assessment and Plan Plan: Leukocytosis: Most probably reactive. Antibiotics for urological causes as per urology. Patient doesn't have any other evidence of infection -Hypertension continue with amlodipine -Mild acute renal failure probably prerenal azotemia from dehydration and hematuria patient received IV fluids which can repeat labs tomorrow a.m. -Atrial fibrillation paroxysmal presently sinus rhythm patient is anti-c oagulation is on hold because of hematuria -Gastroesophageal reflux disease Hyperlipidemia -Benign prostatic hypertrophy -Bladder tumor on pathology is not available at this time this is being managed by urology.
[2020-07-05] MEDS: SODIUM CHLORIDE 0.9% 1,000 ML IV SCH (13:29)
[2020-07-05] MEDS: ALBUTEROL NEBULIZED 2.5 MG/3 ML INHALATION SCH (19:59)
[2020-07-05] MEDS: SODIUM CHLORIDE 0.9% IRRIGATIO 3,000 ML IRRIGATION SCH (20:36)
[2020-07-05] MEDS: FOLIC ACID 1 MG TAB PO SCH (20:36)
[2020-07-05] MEDS: ATORVASTATIN 10 MG TAB PO SCH (20:36)
[2020-07-06] MEDS: METOPROLOL TARTRATE 25 MG TAB PO SCH (08:24)
[2020-07-06] MEDS: amLODIPine 10 MG TAB PO SCH (08:24)
[2020-07-06 09:14] LABS: HCT 26.3 % (39.6-50.0); HGB 8.6 g/dL (13.0-17.0); MCH 31.7 pg (27.0-32.0); MCHC 32.7 g/dL (32.0-37.0); Mean Platelet Volume 10.6 fL (9.5-12.2); Platelet Count 248 X 10*3/uL (140-440); RBC 2.71 X 10*6/uL (4.40-5.60); RDW 16.5 % (11.5-14.5)
[2020-07-06 09:24] LABS: African American GFR (CKD) 63.6 (60.0-200.0); Anion Gap 6.5 mmol/L (4.00-12.00); BUN/Creat Ratio 15.38 Ratio (12.00-20.00); Calcium 8.6 mg/dL (8.7-10.3); Carbon Dioxide 28.5 mmol/L (21.6-31.8); Non-African American GFR(CKD) 54.9 (60.0-200.0); Potassium 4.4 mmol/L (3.5-5.5)
--- NOTE | 2020-07-06 12:28 | P.PN ---
Progress Note - Text Progress Note Date: 07/06/20 Mr. Taveras feels constipated but otherwise has no complaints. Continuous bladder irrigation is running. The urine is pink tinged, without clots. The hemoglobin level today has decreased to 8.6. We discussed performing cystoscopy with fulguration of bleeders, but decided against it as the significant bleeding appears to have subsided. Continuous bladder irrigation will be continued, and hemoglobin level will continue to be monitored. Colace has been ordered, and lactulose remains available. He was encouraged to ambulate, and pneumatic compression stockings have been ordered for DVT prophylaxis.
[2020-07-06] MEDS: DOCUSATE 100 MG CAP PO SCH (13:05)
[2020-07-06] MEDS: SODIUM CHLORIDE 0.9% 1,000 ML IV SCH (13:06)
[2020-07-06] MEDS: ONDANSETRON 4 MG/2 ML VIAL IVP PRN ×2 (14:52→21:50)
[2020-07-06] MEDS: HYDROmorphone 0.5 MG/0.5 ML SYRINGE IVP PRN ×2 (14:56→23:02)
[2020-07-06] MEDS: ALBUTEROL NEBULIZED 2.5 MG/3 ML INHALATION SCH (20:56)
[2020-07-06] MEDS: SODIUM CHLORIDE 0.9% IRRIGATIO 3,000 ML IRRIGATION SCH (21:44)
[2020-07-07] MEDS: FOLIC ACID 1 MG TAB PO SCH ×2 (00:31→20:42)
[2020-07-07] MEDS: ATORVASTATIN 10 MG TAB PO SCH ×2 (00:31→20:42)
[2020-07-07] MEDS: DOCUSATE 100 MG CAP PO SCH ×3 (00:31→20:42)
[2020-07-07] MEDS: METOPROLOL TARTRATE 25 MG TAB PO SCH ×3 (00:39→20:42)
[2020-07-07] MEDS: ONDANSETRON 4 MG/2 ML VIAL IVP PRN ×2 (03:02→08:57)
[2020-07-07] MEDS: HYDROmorphone 0.5 MG/0.5 ML SYRINGE IVP PRN ×2 (04:15→09:05)
[2020-07-07] MEDS: SODIUM CHLORIDE 0.9% 1,000 ML IV SCH (07:25)
[2020-07-07] MEDS: SODIUM CHLORIDE 0.9% IRRIGATIO 3,000 ML IRRIGATION SCH ×2 (07:26→13:18)
--- NOTE | 2020-07-07 08:33 | P.PN ---
Progress Note - Text Progress Note Date: 07/07/20 Mr. uBrnham experienced nausea overnight, as well as left flank discomfort. His urine is pink tinged with continuous bladder irrigation running slowly. The hemoglobin level today is pending at this time. Pathology from his resection last week was negative. A renal ultrasound will be obtained to rule out hydronephrosis.
[2020-07-07] MEDS: amLODIPine 10 MG TAB PO SCH (08:57)
[2020-07-07] MEDS: LACTULOSE 20 GM/30 ML CUP PO PRN (09:04)
--- NOTE | 2020-07-07 09:06 | P.PN ---
Subjective Progress Note Date: 07/06/20 - Reason for Consult Leukocytosis - History of Present Illness Patient is on an-year-old male came in because of hematuria. Patient is on Eliquis. Patient during his recent hospitalization and procedure and resection of bladder mass was told not to continue Eliquis. Patient has been taking Eliquis and his last dose was yesterday morning. Patient given with hematuria again patient underwent cystoscopy again with clot removal and patient was started on continuous irrigation. Patient urine at this time is light pinkish in color. Eliquis is being held. Patient denied any fever chills patient does have leukocytosis. Urinalysis is not available 07/06/2020 Patient is seen and evaluated and follow-up currently receiving continuous bladder irrigation. Following closely with urology as patient underwent cystoscopy with removal of clots. Anticoagulation is currently on hold. Hemoglobin today is 8.1 from previous 10.3, and 12.3 on admission. Patient continues to have hematuria noted in the Ramírez catheter. Patient's creatinine slightly elevated at 1.3 and will continue on gentle IV hydration and repeat a.m. labs. Review of systems: Constitutional: No reports of fatigue, fever, or chills Cardiovascular: No reports of chest pain or palpitations Respiratory: No reports of shortness of breath or cough GI: Reports occasional nausea and decreased appetite : No reports of dysuria or retention, reports mild bladder spasms Neurovascular: No reports of weakness or numbness, reports left-sided flank pain All medications have been reviewed Objective - Vital Signs Vital signs: Vital Signs Temp 97.7 F 07/06/20 14:29 Pulse 63 07/06/20 14:29 Resp 20 07/06/20 14:29 BP 169/85 07/06/20 14:29 Pulse Ox 99 07/06/20 14:29 Intake & Output 07/05/20 07/06/20 07/06/20 18:59 06:59 18:59 Intake Total 480 280 Output Total 1000 3000 61058 Balance -035 -6045 -73689 Intake: Intake, IV Titration 280 Amount Sodium Chloride 0.9% 1, 280 000 ml @ 20 mls/hr IV . Q24H [facility] Rx#:[id number] Oral 480 Output: Urine 1000 3000 50816 Other: Voiding Method Indwelling Catheter Indwelling Catheter Indwelling Catheter # Voids 900 1 # Bowel Movements 2 - Exam GENERAL: The patient is alert and oriented x3, not in any acute distress. Well developed, well nourished. Temp is 98F, pulse is 63, respirations are 20, blood pressure is 136/67, oxygen saturation is 96% on room air. HEENT: Pupils are round and equally reacting to light. EOMI. No scleral icterus. No conjunctival pallor. Normocephalic, atraumatic. No pharyngeal erythema. No thyromegaly. CARDIOVASCULAR: S1 and S2 muffled. No murmurs, rubs, or gallops. PULMONARY: Manage breath sounds bilaterally with no wheezing or crackles. ABDOMEN: Soft, nontender, nondistended, normoactive bowel sounds. No palpable organomegaly. Has a Ramírez catheter as mentioned above receiving continuous blad jacob irrigation with blood-tinged urine noted MUSCULOSKELETAL: No joint swelling or deformity. EXTREMITIES: No cyanosis, clubbing, or pedal edema. NEUROLOGICAL: Gross neurological examination did not reveal any focal deficits. SKIN: No rashes. - Labs CBC & Chem 7: 07/06/20 05:13 07/06/20 05:13 Labs: Abnormal Lab Results - Last 24 Hours (Table) 07/06/20 07/06/20 Range/Units 05:13 05:13 RBC 2.71 L (4.40-5.60) X 10*6/uL Hgb 8.6 L (13.0-17.0) g/dL Hct 26.3 L (39.6-50.0) % RDW 16.5 H (11.5-14.5) % Est GFR (CKD-EPI)NonAf 54.9 L (60.0-200.0) Glucose 145 H (70-110) mg/dL Calcium 8.6 L (8.7-10.3) mg/dL Assessment and Plan Assessment: -Leukocytosis most likely reactive -Hypertension -Mild acute renal failure probably prerenal azotemia from dehydration and hematuria -Atrial fibrillation paroxysmal presently sinus rhythm -Gastroesophageal reflux disease -Hyperlipidemia -Benign prostatic hypertrophy -Bladder tumor on pathology is not available at this time Recommendations and discussion: Recommend to continue with current medications, management, and symptomatic treatment. Patient is maintained on current home medications which is appropriate. Patient is also receiving pain management per primary service. Tinea to hold anticoagulation at this time. Closely with urology. Creatinine slightly elevated at 1.3 and will repeat a.m. labs. Current sodium is 141 with a potassium of 4.4. White blood count improved and is 9.20, hemoglobin is 8.6. Continue to monitor vital signs and labs closely along with monitoring bladder irrigation and clearance of hematuria. Will continue to follow along closely with urology. Further recommendations to follow.
[2020-07-07 09:18] LABS: Basophils # (A) 0.01 X 10*3/uL (0.00-0.10); Basophils % (A) 0.1 %; Eosinophils # (A) 0.01 X 10*3/uL (0.04-0.35); Eosinophils % (A) 0.1 %; Lymphocytes % (A) 4.3 %; MCH 31.7 pg (27.0-32.0); MCHC 33.3 g/dL (32.0-37.0); MCV 95.1 fL (80.0-97.0); Mean Platelet Volume 10.7 fL (9.5-12.2); Monocytes # (A) 0.48 X 10*3/uL (0.20-1.00); Monocytes % (A) 4.1 %; Neutrophils % (A) 90.9 %; Platelet Count 255 X 10*3/uL (140-440); RBC 2.84 X 10*6/uL (4.40-5.60); RDW 15.9 % (11.5-14.5); WBC 11.76 X 10*3/uL (4.50-10.00)
[2020-07-07 09:25] LABS: African American GFR (CKD) 51 (>60 ml/min/1.73 sqM); Anion Gap 7 mmol/L; Blood Urea Nitrogen 20 mg/dL (9-20); Carbon Dioxide 27 mmol/L (22-30); Chloride 99 mmol/L (98-107); Glucose 206 mg/dL (74-99); Non-African American GFR(CKD) 44 (>60 ml/min/1.73 sqM); Sodium 133 mmol/L (137-145)
--- NOTE | 2020-07-07 11:06 | CDI ---
Documentation Clarification Form Date: 07/07/2020 10:53:17 AM From: Sheila Ellsworth RN, CCDS Admit Date: 07/06/2020 12:27:00 PM Patient Name: Oswaldo Taveras Visit Number: [id number] ATTENTION: The Clinical Documentation Specialists (CDI) and [facility] Coding Staff appreciate your assistance in clarifying documentation. Please respond to the clarification below the line at the bottom and electronically sign. The CDI & [facility] Coding staff will review the response and follow-up if needed. Please note: Queries are made part of the Legal Health Record. If you have any questions, please contact the author of this message via ITS. Dr. Heaven Steele declining Hgb and Hct have been noted in a patient presenting with hematuria and clots in his IDC s/p bladder resection with postoperative bleeding on Eliquis. Please provide clinical significance. History/Risk Factors: Acute renal failure, Dehydration, Hematuria, Paroxysmal Atrial Fib, Gerd, Bladder tumor s/p resection Clinical indicators: 07/04 Urology H&P: "Bladder cancer with postoperative bleeding elevated by Eliquis." 07/04-07/07 Hemoglobin: 12.3/10.3/8.6/9 Hematocrit: 36.6/30.9/26.08/01 Treatment: 07/04 Procedure Note: "Catheter exchange, irrigation of bladder, placement of 3- way catheter with irrigation Eliquis on Hold In order to capture the severity of condition, please clarify the clinical significance if the declining Hgb and Hct and etiology if known: Acute blood loss anemia Acute on chronic blood loss anemia Drug induced anemia Anemia of chronic disease Unable to determine Other, please specify (Last Form Revision: July 2019) Acute blood loss anemia MTDD
--- NOTE | 2020-07-07 11:31 | US ---
EXAMINATION TYPE: US kidneys/renal and bladder DATE OF EXAM: 07/07/2020 COMPARISON: US 2020 CLINICAL HISTORY: Bladder Cancer. Hematuria Exam done portable. EXAM MEASUREMENTS: Right Kidney: 10.3 x 6.2 x 5.7 cm Left Kidney: 11.1 x 6.2 x 5.3 cm Right Kidney: cortical thinning, 2 cystic areas lower pole with largest measuring 5.1cm with some ec hogenic material compatible with complex cyst. This previously had a more simple appearance. Left Kidney: cortical thinning Bladder: Decompressed with a bedoya catheter. IMPRESSION: 1. Right renal cysts. The largest measuring 5 cm at the inferior pole right kidney is slightly echoge torrey suggesting complex cyst. This is a change from comparison. 2. Urinary bladder cannot be evaluated.
[2020-07-07] MEDS: ALBUTEROL NEBULIZED 2.5 MG/3 ML INHALATION SCH (20:25)
[2020-07-08] MEDS: DOCUSATE 100 MG CAP PO SCH ×2 (08:45→21:41)
[2020-07-08] MEDS: METOPROLOL TARTRATE 25 MG TAB PO SCH ×2 (08:45→21:42)
[2020-07-08] MEDS: LACTULOSE 20 GM/30 ML CUP PO PRN (08:45)
--- NOTE | 2020-07-08 08:46 | P.PN ---
Subjective Progress Note Date: 07/07/20 - Reason for Consult Leukocytosis - History of Present Illness Patient is on an-year-old male came in because of hematuria. Patient is on Eliquis. Patient during his recent hospitalization and procedure and resection of bladder mass was told not to continue Eliquis. Patient has been taking Eliquis and his last dose was yesterday morning. Patient given with hematuria again patient underwent cystoscopy again with clot removal and patient was started on continuous irrigation. Patient urine at this time is light pinkish in color. Eliquis is being held. Patient denied any fever chills patient does have leukocytosis. Urinalysis is not available 07/06/2020 Patient is seen and evaluated and follow-up currently receiving continuous bladder irrigation. Following closely with urology as patient underwent cystoscopy with removal of clots. Anticoagulation is currently on hold. Hemoglobin today is 8.1 from previous 10.3, and 12.3 on admission. Patient continues to have hematuria noted in the Ramírze catheter. Patient's creatinine slightly elevated at 1.3 and will continue on gentle IV hydration and repeat a.m. labs. 07/07/2020 Patient is seen this morning continues to be on bladder irrigation being closely monitored. Urology following closely. Bladder ultrasound ordered and currently pending at this time. Urine output being closely monitored and the consistency as it continues to be blood-tinged. Patient continues to have some mild lower abdominal cramping but states it has improved. Patient continues to have left upper back pain without CVA tenderness noted on exam. Patient has decreased appetite and states he has had no nausea or vomiting noted. Per nursing staff patient had multiple episodes of nausea throughout the night but denies vomiting. Encourage the patient to continue increasing oral intake as tolerated. Patient also states he is having feelings of constipation and currently receiving laxatives with no bowel movement noted. Patient reports last bowel movement was Monday or Monday evening. Patient denies any chest pain or shortness of breath. Patient is afebrile. Review of systems: Constitutional: No reports of fatigue, fever, or chills Cardiovascular: No reports of chest pain or palpitations Respiratory: No reports of shortness of breath or cough GI: Reports occasional nausea and decreased appetite, no reports of vomiting : No reports of dysuria or retention, reports mild bladder spasms Neurovascular: No reports of weakness or numbness, reports left-sided flank pain All medications have been reviewed Objective - Vital Signs Vital signs: Vital Signs Temp 98.0 F 07/07/20 07:19 Pulse 78 07/07/20 07:19 Resp 20 07/07/20 07:19 BP 151/76 07/07/20 07:19 Pulse Ox 98 07/07/20 07:19 Intake & Output 07/06/20 07/07/20 07/07/20 18:59 06:59 18:59 Intake Total 240 Output Total 60666 93052 Balance -48287 -41601 Intake: Oral 240 Output: Urine 38605 07265 Other: Voiding Method Indwelling Catheter Indwelling Catheter # Voids 1 - Exam GENERAL: The patient is alert and oriented x3, not in any acute distress. Well developed, well nourished. Temp is 98F, pulse is 78, respirations are 20, blood pressure is 151/76, oxygen saturation is 98% on room air. HEENT: Pupils are round and equally reacting to light. EOMI. No scleral icterus. No conjunctival pallor. Normocephalic, atraumatic. No pharyngeal erythema. No t hyromegaly. CARDIOVASCULAR: S1 and S2 muffled. No murmurs, rubs, or gallops. PULMONARY: Diminished breath sounds bilaterally with no wheezing or crackles. ABDOMEN: Soft, nontender, nondistended, normoactive bowel sounds. No palpable organomegaly. Has a Ramírez catheter as mentioned above receiving continuous bladder irrigation with pinkish blood-tinged urine noted MUSCULOSKELETAL: No joint swelling or deformity. EXTREMITIES: No cyanosis, clubbing, or pedal edema. NEUROLOGICAL: Gross neurological examination did not reveal any focal deficits. SKIN: No rashes. - Labs CBC & Chem 7: 07/07/20 05:07 07/07/20 05:07 Labs: Abnormal Lab Results - Last 24 Hours (Table) 07/06/20 07/06/20 Range/Units 05:13 05:13 RBC 2.71 L (4.40-5.60) X 10*6/uL Hgb 8.6 L (13.0-17.0) g/dL Hct 26.3 L (39.6-50.0) % RDW 16.5 H (11.5-14.5) % Est GFR (CKD-EPI)NonAf 54.9 L (60.0-200.0) Glucose 145 H (70-110) mg/dL Calcium 8.6 L (8.7-10.3) mg/dL Assessment and Plan Assessment: -Leukocytosis most likely reactive -Acute blood loss anemia -Hypertension -Mild acute renal failure probably prerenal azotemia from dehydration and hematuria -Atrial fibrillation paroxysmal presently sinus rhythm -Gastroesophageal reflux disease -Hyperlipidemia -Benign prostatic hypertrophy -Bladder tumor on pathology is not available at this time Recommendations and discussion: Recommend to continue with current medications, management, and symptomatic treatment. Patient is maintained on current home medications which is appropriate. Patient is also receiving pain management per primary service. Continue to hold anticoagulation at this time. Closely follow with urology. Creatinine slightly elevated at 1.56 and will repeat a.m. labs. Current sodium is 133 with a potassium of 4.0. White blood count is 11.76, hemoglobin is 9.0. Bladder ultrasound ordered and pending at this time. Continue to monitor vital signs and labs closely along with monitoring bladder irrigation and clearance of hematuria. Will continue to follow along closely with urology. Further recommendations to follow.
[2020-07-08 08:52] LABS: Basophils # (A) 0.01 X 10*3/uL (0.00-0.10); Basophils % (A) 0.2 %; Eosinophils # (A) 0.07 X 10*3/uL (0.04-0.35); Eosinophils % (A) 1.2 %; HCT 23.5 % (39.6-50.0); HGB 7.7 g/dL (13.0-17.0); Lymphocytes # (A) 1.14 X 10*3/uL (0.90-5.00); Lymphocytes % (A) 19.3 %; MCH 30.8 pg (27.0-32.0); MCHC 32.8 g/dL (32.0-37.0); Mean Platelet Volume 10.8 fL (9.5-12.2); Monocytes # (A) 0.22 X 10*3/uL (0.20-1.00); Monocytes % (A) 3.7 %; Neutrophils # (A) 4.44 X 10*3/uL (1.80-7.70); Neutrophils % (A) 75.1 %; Platelet Count 264 X 10*3/uL (140-440); RDW 15.8 % (11.5-14.5); WBC 5.91 X 10*3/uL (4.50-10.00)
[2020-07-08] MEDS: SODIUM CHLORIDE 0.9% 1,000 ML IV SCH ×2 (10:30→21:42)
[2020-07-08 11:29] LABS: African American GFR (CKD) 63.6 (60.0-200.0); Anion Gap 9.8 mmol/L (4.00-12.00); BUN/Creat Ratio 19.23 Ratio (12.00-20.00); Calcium 8.5 mg/dL (8.7-10.3); Carbon Dioxide 26.2 mmol/L (21.6-31.8); Non-African American GFR(CKD) 54.9 (60.0-200.0); Potassium 3.9 mmol/L (3.5-5.5)
--- NOTE | 2020-07-08 15:57 | P.PN ---
Subjective Progress Note Date: 07/08/20 - Reason for Consult Leukocytosis - History of Present Illness Patient is on an-year-old male came in because of hematuria. Patient is on Eliquis. Patient during his recent hospitalization and procedure and resection of bladder mass was told not to continue Eliquis. Patient has been taking Eliquis and his last dose was yesterday morning. Patient given with hematuria again patient underwent cystoscopy again with clot removal and patient was started on continuous irrigation. Patient urine at this time is light pinkish in color. Eliquis is being held. Patient denied any fever chills patient does have leukocytosis. Urinalysis is not available 07/06/2020 Patient is seen and evaluated and follow-up currently receiving continuous bladder irrigation. Following closely with urology as patient underwent cystoscopy with removal of clots. Anticoagulation is currently on hold. Hemoglobin today is 8.1 from previous 10.3, and 12.3 on admission. Patient continues to have hematuria noted in the Ramríez catheter. Patient's creatinine slightly elevated at 1.3 and will continue on gentle IV hydration and repeat a.m. labs. 07/07/2020 Patient is seen this morning continues to be on bladder irrigation being closely monitored. Urology following closely. Bladder ultrasound ordered and currently pending at this time. Urine output being closely monitored and the consistency as it continues to be blood-tinged. Patient continues to have some mild lower abdominal cramping but states it has improved. Patient continues to have left upper back pain without CVA tenderness noted on exam. Patient has decreased appetite and states he has had no nausea or vomiting noted. Per nursing staff patient had multiple episodes of nausea throughout the night but denies vomiting. Encourage the patient to continue increasing oral intake as tolerated. Patient also states he is having feelings of constipation and currently receiving laxatives with no bowel movement noted. Patient reports last bowel movement was Monday or Monday evening. Patient denies any chest pain or shortness of breath. Patient is afebrile. 07/08/2020 Patient is seen and evaluated this morning and has recently had indwelling Ramírez catheter removed and has been urinating although small amounts and urine is perry red colored that is noted on exam. Patient to continue with bladder scans post void to monitor for any retention and clots. Hemoglobin today is 7.7 from 9.0 yesterday. White blood count normalized at 5.91. Current sodium is 138 with a potassium of 3.9 and creatinine slightly improved at 1.3. Following closely along with urology. Will repeat a.m. labs and continue to monitor hemoglobin closely. Transfuse if less than 7. Bladder ultrasound ordered and pending at this time. Review of systems: Constitutional: No reports of fatigue, fever, or chills Cardiovascular: No reports of chest pain or palpitations Respiratory: No reports of shortness of breath or cough GI: Reports occasional nausea and decreased appetite, no reports of vomiting : No reports of dysuria or retention, reports mild bladder spasms Neurovascular: No reports of weakness or numbness, reports left-sided flank pain All medications have been reviewed Objective - Vital Signs Vital signs: Vital Signs Temp 97.8 F 07/08/20 06:56 Pulse 60 07/08/20 06:56 Resp 20 07/08/20 06:56 BP 128/73 07/08/20 06:56 Pulse Ox 96 07/08/20 06:56 Intake & Output 07/07/20 07/08/20 07/08/20 18:59 06:59 18:59 Intake Total 700 400 Output Total 1450 650 50 Balance -750 -650 350 Intake: IV 160 160 Sodium Chloride 0.9% 1, 160 160 000 ml @ 20 mls/hr IV . Q24H [facility] Rx#:[id number] Oral 540 240 Output: Urine 1450 650 50 Other: Voiding Method Toilet Toilet Urinal Urinal # Voids 1 2 # Bowel Movements 1 - Exam GENERAL: The patient is alert and oriented x3, not in any acute distress. Well d eveloped, well nourished. Temp is 97.8F, pulse is 60, respirations are 20, blood pressure is 128/73, oxygen saturation is 96% on room air. HEENT: Pupils are round and equally reacting to light. EOMI. No scleral icterus. No conjunctival pallor. Normocephalic, atraumatic. No pharyngeal erythema. No thyromegaly. CARDIOVASCULAR: S1 and S2 muffled. No murmurs, rubs, or gallops. PULMONARY: Diminished breath sounds bilaterally with no wheezing or crackles. ABDOMEN: Soft, nontender, nondistended, normoactive bowel sounds. No palpable organomegaly. MUSCULOSKELETAL: No joint swelling or deformity. EXTREMITIES: No cyanosis, clubbing, or pedal edema. NEUROLOGICAL: Gross neurological examination did not reveal any focal deficits. SKIN: No rashes. - Labs CBC & Chem 7: 07/08/20 05:06 07/08/20 05:06 Labs: Abnormal Lab Results - Last 24 Hours (Table) 07/07/20 07/07/20 Range/Units 05:07 05:07 WBC 11.76 H (4.50-10.00) X 10*3/uL RBC 2.84 L (4.40-5.60) X 10*6/uL Hgb 9.0 L (13.0-17.0) g/dL Hct 27.0 L (39.6-50.0) % RDW 15.9 H (11.5-14.5) % Immature Gran # 0.06 H (0.00-0.04) X 10*3/uL Neutrophils # 10.70 H (1.80-7.70) X 10*3/uL Lymphocytes # 0.50 L (0.90-5.00) X 10*3/uL Eosinophils # 0.01 L (0.04-0.35) X 10*3/uL Sodium 133 L (137-145) mmol/L Creatinine 1.56 H (0.66-1.25) mg/dL Glucose 206 H (74-99) mg/dL Assessment and Plan Assessment: -Hematuria -Leukocytosis most likely reactive -Acute blood loss anemia -Hypertension -Mild acute renal failure probably prerenal azotemia from dehydration and hematuria -Atrial fibrillation paroxysmal presently sinus rhythm -Gastroesophageal reflux disease -Hyperlipidemia -Benign prostatic hypertrophy -Bladder tumor on pathology is not available at this time Recommendations and discussion: Recommend to continue with current medications, management, and symptomatic treatment. Patient is maintained on current home medications which is appropriate. Patient is also receiving pain management per primary service. Continue to hold anticoagulation at this time. Closely follow with urology. Creatinine slightly improved at 1.3 and will repeat a.m. labs. Continue with post void bladder scanning. Bladder ultrasound ordered and pending at this amaya e. Hemoglobin has dropped to 7.7 and will continue to monitor closely and transfuse if less than 7. Continue to monitor vital signs and labs closely. Will continue to follow along closely with urology. Further recommendations to follow.
[2020-07-08] MEDS: amLODIPine 10 MG TAB PO SCH (16:15)
--- NOTE | 2020-07-08 20:12 | P.PN ---
Progress Note - Text Progress Note Date: 07/08/20 The patient was seen this morning. His Ramírez catheter was removed yesterday due to drainage around the catheter, and he is voiding without difficulty. He is voiding frequently, but his postvoid residual is low. Hematuria has persisted, but he is not passing clots. His nausea and low back pain have essentially resolved. The hemoglobin level today was 7.7. I'm hopeful that the hematuria will improve with the catheter out and off anticoagulants.
[2020-07-08] MEDS: ALBUTEROL NEBULIZED 2.5 MG/3 ML INHALATION SCH (20:39)
[2020-07-08] MEDS: FOLIC ACID 1 MG TAB PO SCH (21:41)
[2020-07-08] MEDS: ATORVASTATIN 10 MG TAB PO SCH (21:41)
[2020-07-09] MEDS: amLODIPine 10 MG TAB PO SCH (08:25)
[2020-07-09] MEDS: METOPROLOL TARTRATE 25 MG TAB PO SCH ×2 (08:25→21:43)
[2020-07-09] MEDS: DOCUSATE 100 MG CAP PO SCH ×2 (08:25→21:43)
[2020-07-09 09:08] LABS: Basophils # (A) 0.02 X 10*3/uL (0.00-0.10); Basophils % (A) 0.4 %; Eosinophils # (A) 0.08 X 10*3/uL (0.04-0.35); Eosinophils % (A) 1.8 %; HCT 23.6 % (39.6-50.0); HGB 7.7 g/dL (13.0-17.0); Lymphocytes # (A) 1.03 X 10*3/uL (0.90-5.00); Lymphocytes % (A) 22.8 %; MCH 30.8 pg (27.0-32.0); MCHC 32.6 g/dL (32.0-37.0); MCV 94.4 fL (80.0-97.0); Mean Platelet Volume 10.6 fL (9.5-12.2); Monocytes % (A) 6.7 %; Neutrophils # (A) 3.06 X 10*3/uL (1.80-7.70); Neutrophils % (A) 67.9 %; Platelet Count 288 X 10*3/uL (140-440); RDW 15.7 % (11.5-14.5); WBC 4.51 X 10*3/uL (4.50-10.00)
[2020-07-09 09:37] LABS: African American GFR (CKD) 87.4 (60.0-200.0); Anion Gap 8.3 mmol/L (4.00-12.00); Calcium 8.4 mg/dL (8.7-10.3); Carbon Dioxide 27.7 mmol/L (21.6-31.8); Non-African American GFR(CKD) 75.4 (60.0-200.0); Potassium 3.9 mmol/L (3.5-5.5)
--- NOTE | 2020-07-09 11:26 | P.PN ---
Progress Note - Text Progress Note Date: 07/09/20 The patient's status is essentially unchanged. He denies flank and abdominal pain. He denies nausea. He is voiding without difficulty. The hematuria persists, though there are no visible clots. The hemoglobin level is stable at 7.7. I anticipate he will be discharged home tomorrow if the next 24 hours are uneventful.
--- NOTE | 2020-07-09 15:23 | P.PN ---
Subjective Progress Note Date: 07/09/20 - Reason for Consult Leukocytosis - History of Present Illness Patient is on an-year-old male came in because of hematuria. Patient is on Eliquis. Patient during his recent hospitalization and procedure and resection of bladder mass was told not to continue Eliquis. Patient has been taking Eliquis and his last dose was yesterday morning. Patient given with hematuria again patient underwent cystoscopy again with clot removal and patient was started on continuous irrigation. Patient urine at this time is light pinkish in color. Eliquis is being held. Patient denied any fever chills patient does have leukocytosis. Urinalysis is not available 07/06/2020 Patient is seen and evaluated and follow-up currently receiving continuous bladder irrigation. Following closely with urology as patient underwent cystoscopy with removal of clots. Anticoagulation is currently on hold. Hemoglobin today is 8.1 from previous 10.3, and 12.3 on admission. Patient continues to have hematuria noted in the Ramírez catheter. Patient's creatinine slightly elevated at 1.3 and will continue on gentle IV hydration and repeat a.m. labs. 07/07/2020 Patient is seen this morning continues to be on bladder irrigation being closely monitored. Urology following closely. Bladder ultrasound ordered and currently pending at this time. Urine output being closely monitored and the consistency as it continues to be blood-tinged. Patient continues to have some mild lower abdominal cramping but states it has improved. Patient continues to have left upper back pain without CVA tenderness noted on exam. Patient has decreased appetite and states he has had no nausea or vomiting noted. Per nursing staff patient had multiple episodes of nausea throughout the night but denies vomiting. Encourage the patient to continue increasing oral intake as tolerated. Patient also states he is having feelings of constipation and currently receiving laxatives with no bowel movement noted. Patient reports last bowel movement was Monday or Monday evening. Patient denies any chest pain or shortness of breath. Patient is afebrile. 07/08/2020 Patient is seen and evaluated this morning and has recently had indwelling Raímrez catheter removed and has been urinating although small amounts and urine is perry red colored that is noted on exam. Patient to continue with bladder scans post void to monitor for any retention and clots. Hemoglobin today is 7.7 from 9.0 yesterday. White blood count normalized at 5.91. Current sodium is 138 with a potassium of 3.9 and creatinine slightly improved at 1.3. Following closely along with urology. Will repeat a.m. labs and continue to monitor hemoglobin closely. Transfuse if less than 7. Bladder ultrasound ordered and pending at this time. 07/09/2020 Patient is being closely monitored for hematuria and being followed closely by urology. Patient continues to have blood noted in the urinal. Patient hemoglobin remained the same at 7.7 today and anticoagulant continues to be on hold. Patient has been voiding although states he is urinating a small amount and not feeling as if he is fully emptying his bladder. Bladder scans and monitor for any signs of retention. Patient states he is eating a little better and denies any nausea or vomiting today. Creatinine slightly improved at 1.0. Patient is maintained on normal saline at 75 ML per hour and will continue this time. Patient states he is passing gas and having bowel movements. Currently patient denies any chest pain, shortness of breath, or palpitations. Patient is afebrile. Review of systems: Constitutional: No reports of fatigue, fever, or chills Cardiovascular: No reports of chest pain or palpitations Respiratory: No reports of shortness of breath or cough GI: Denies nausea or vomiting and reports continued decreased appetite, no r eports of vomiting : No reports of dysuria or retention, reports mild bladder spasms Neurovascular: No reports of weakness or numbness, reports left-sided flank pain though slightly improved All medications have been reviewed Objective - Vital Signs Vital signs: Vital Signs Temp 98.6 F 07/09/20 07:00 Pulse 54 L 07/09/20 08:00 Resp 17 07/09/20 08:00 BP 138/67 07/09/20 07:00 Pulse Ox 100 07/09/20 07:00 Intake & Output 07/08/20 07/09/20 07/09/20 18:59 06:59 18:59 Intake Total 718 250 222 Output Total 100 1275 Balance 618 -1025 222 Intake: IV 160 Sodium Chloride 0.9% 1, 160 000 ml @ 20 mls/hr IV . Q24H [facility] Rx#:[id number] Oral 558 250 222 Output: Urine 100 1125 Post Void Residual 150 Other: Voiding Method Toilet Toilet Toilet Urinal Urinal Urinal # Voids 1 2 # Bowel Movements 2 2 - Exam GENERAL: The patient is alert and oriented x3, not in any acute distress. Well developed, well nourished. Temp is 98.6F, pulse is 54, respirations are 17, blood pressure is 138/67, oxygen saturation is 100% on room air. HEENT: Pupils are round and equally reacting to light. EOMI. No scleral icterus. No conjunctival pallor. Normocephalic, atraumatic. No pharyngeal erythema. No thyromegaly. CARDIOVASCULAR: S1 and S2 muffled. No murmurs, rubs, or gallops. PULMONARY: Diminished breath sounds bilaterally with no wheezing or crackles. ABDOMEN: Soft, nontender, nondistended, normoactive bowel sounds. No palpable organomegaly. MUSCULOSKELETAL: No joint swelling or deformity. EXTREMITIES: No cyanosis, clubbing, or pedal edema. NEUROLOGICAL: Gross neurological examination did not reveal any focal deficits. SKIN: No rashes. - Labs CBC & Chem 7: 07/09/20 05:46 07/09/20 05:46 Labs: Abnormal Lab Results - Last 24 Hours (Table) 07/09/20 07/09/20 Range/Units 05:46 05:46 RBC 2.50 L (4.40-5.60) X 10*6/uL Hgb 7.7 L (13.0-17.0) g/dL Hct 23.6 L (39.6-50.0) % RDW 15.7 H (11.5-14.5) % Glucose 154 H (70-110) mg/dL Calcium 8.4 L (8.7-10.3) mg/dL Assessment and Plan Assessment: -Hematuria -Leukocytosis most likely reactive, improved -Acute blood loss anemia -Hypertension -Mild acute renal failure probably prerenal azotemia from dehydration and hematuria -Atrial fibrillation paroxysmal presently sinus rhythm -Gastroesophageal reflux disease -Hyperlipidemia -Benign prostatic hypertrophy -Bladder tumor on pathology is not available at this time Recommendations and discussion: Recommend to continue with current medications, management, and symptomatic treatment. Patient is maintained on current home medications which is appropriate. Patient is also receiving pain management per primary service. Continue to hold anticoagulation at this time. Closely follow with urology. Creatinine slightly improved at 1.0 and will repeat a.m. labs. Continue with post void bladder scanning. Hemoglobin has maintained at 7.7 and will continue to monitor closely and transfuse if less than 7. Continue to monitor vital signs and labs closely. Will continue to follow along closely with urology. Further recommendations to follow.
[2020-07-09] MEDS: SODIUM CHLORIDE 0.9% 1,000 ML IV SCH (16:08)
[2020-07-09] MEDS: ALBUTEROL NEBULIZED 2.5 MG/3 ML INHALATION SCH (19:48)
[2020-07-09] MEDS: FOLIC ACID 1 MG TAB PO SCH (21:43)
[2020-07-09] MEDS: ATORVASTATIN 10 MG TAB PO SCH (21:43)
[2020-07-09] MEDS: SODIUM CHLORIDE 0.9% IRRIGATIO 3,000 ML IRRIGATION SCH (21:55)
[2020-07-10] MEDS: SODIUM CHLORIDE 0.9% 1,000 ML IV SCH (03:40)
[2020-07-10 08:56] LABS: Basophils # (A) 0.02 X 10*3/uL (0.00-0.10); Basophils % (A) 0.4 %; Eosinophils # (A) 0.12 X 10*3/uL (0.04-0.35); Eosinophils % (A) 2.3 %; HCT 24.6 % (39.6-50.0); HGB 7.7 g/dL (13.0-17.0); Lymphocytes # (A) 1.04 X 10*3/uL (0.90-5.00); Lymphocytes % (A) 19.8 %; MCH 30.1 pg (27.0-32.0); MCHC 31.3 g/dL (32.0-37.0); MCV 96.1 fL (80.0-97.0); Mean Platelet Volume 10.3 fL (9.5-12.2); Monocytes # (A) 0.38 X 10*3/uL (0.20-1.00); Monocytes % (A) 7.2 %; Neutrophils # (A) 3.66 X 10*3/uL (1.80-7.70); Neutrophils % (A) 69.7 %; Platelet Count 276 X 10*3/uL (140-440); RBC 2.56 X 10*6/uL (4.40-5.60); RDW 15.7 % (11.5-14.5); WBC 5.25 X 10*3/uL (4.50-10.00)
[2020-07-10] MEDS: METOPROLOL TARTRATE 25 MG TAB PO SCH (09:01)
[2020-07-10] MEDS: DOCUSATE 100 MG CAP PO SCH (09:01)
[2020-07-10] MEDS: amLODIPine 10 MG TAB PO SCH (09:01)
--- NOTE | 2020-07-10 10:45 | P.DS ---
Providers Date of admission: 07/06/20 12:27 Expected date of discharge: 07/10/20 Attending physician: Jamel Gunter Consults: 07/04/20 13:31 Consult Physician Urgent Consulting Provider: Yonatan Cai Consult Reason/Comments: medical care, htn Do you want consulting provider notified?: Yes Primary care physician: [facility] Course: The patient underwent bladder tumor resection on 07/02/2020. He was admitted with urinary clot retention. Multiple clots were irrigated from the bladder via the Ramírez catheter. The hematuria gradually improved throughout the week. On July 07, he began voiding around the catheter and it was ultimately decided to remove the catheter. He was subsequently able to void. Although he experienced urinary frequency, he was verified to be emptying his bladder completely. His urine remained dark in color until the day of admission, at which time it had improved to being light pink in color. He did experience some left flank discomfort during the hospitalization, so a renal ultrasound was obtained and showed no evidence of hydronephrosis. His hemoglobin level remained stable at 7.7 the last 3 days of his hospitalization. Patient Condition at Discharge: Stable Plan - Discharge Summary Discharge Rx Participant: No New Discharge Prescriptions: No Action Allopurinol 300 mg PO DAILY Simvastatin [Zocor] 20 mg PO HS metHOTREXate sodium [Methotrexate] 17.5 mg PO MANCUSO Folic Acid 1 mg PO HS Multivitamins, Thera [Multivitamin (formulary)] 1 tab PO DAILY Apixaban [Eliquis] 5 mg PO BID #60 tab Acetaminophen Tab [Tylenol] 650 mg PO Q6HR PRN tab PRN Reason: Fever And/ Or Pain Metoprolol Tartrate [Lopressor] 25 mg PO BID Albuterol Sulfate [Proair Hfa] 2 puff INHALATION RT-HS amLODIPine [Norvasc] 10 mg PO DAILY Discharge Medication List Allopurinol 300 mg PO DAILY 12/18/13 [History] Folic Acid 1 mg PO HS 08/17/16 [History] Simvastatin [Zocor] 20 mg PO HS 08/17/16 [History] metHOTREXate sodium [Methotrexate] 17.5 mg PO MANCUSO 08/17/16 [History] Multivitamins, Thera [Multivitamin (formulary)] 1 tab PO DAILY 05/22/20 [History] Apixaban [Eliquis] 5 mg PO BID #60 tab 05/29/20 [Rx] Acetaminophen Tab [Tylenol] 650 mg PO Q6HR PRN tab 06/02/20 [Rx] Metoprolol Tartrate [Lopressor] 25 mg PO BID 06/30/20 [History] Albuterol Sulfate [Proair Hfa] 2 puff INHALATION RT-HS 07/04/20 [History] amLODIPine [Norvasc] 10 mg PO DAILY 07/04/20 [History] Follow up Appointment(s)/Referral(s): Ang Horta MD [Primary Care Provider] - 1-2 days Prince Kaiser MD [STAFF PHYSICIAN] - 07/16/20 1:40 pm [facility] [NON-STAFF] - 1-2 Days Patient Instructions/Handouts: Constipation (ED), Urinary Retention in Men (ED), High Fiber Diet (ED), Hematuria (ED) Activity/Diet/Wound Care/Special Instructions: Hold Eliquis. Drink plenty of fluids, avoid straining. Patient should take stool softener daily, and Dulcolax as needed. Please follow-up with Dr. Kaiser in one week for recheck. Return for not passing urine, abdominal pain, not passing stool, vomiting, fevers, worsening or changing symptoms or other concerns. Discharge Disposition: HOME SELF-CARE
[2020-07-10 12:54] VITALS: BP 161/79; PULSE 52; RESP 17; TEMP 97.8
--- NOTE | 2020-07-11 10:47 | P.PN ---
Progress Note - Text Progress Note Date: 07/10/20 Chief Complaint: Rapid heart rate History of presenting complaint: This is a very pleasant 70-year-old patient of Dr. Horta. Chronic stable medical conditions include GERD, hypertension, hyperlipidemia, kidney stones,. Patient had COVID 19 infection around 2019 known kidney stones. Patient had a computed tomography scan of the abdomen and pelvis on 04/06/2020 showed a 5.6 cm exophytic right renal cyst. Subsequently developed gross hematuria. Cystoscopy in the office revealed multiple posterior bladder wall tumors. In May of this year brought in outpatient center for further cystoscopy with removal of tumor. In the preop area patient is found to be in atrial fibrillation with a rapid ventricular rate. Patient denies any chest pain or shortness of breath. May 29-Bladder tumor was resected down to the muscle. A. fib was controlled. Eliquis it was held Patient now presents yet again with hematuria. Had been resumed on eliquis. Underwent cystoscopy with clot removal. And continuous irrigation. Today-doing well. No further hematuria. Has been told to remain off eliquis for now. Care was discussed with the patient and questions answered. Review of systems: Was done for constitutional, cardiovascular, GI, pulmonary. relevant finding as above Current medications reviewed in today's electronic records Past medical history to include: GERD, hyperlipidemia, hypertension, prostate disorder, right controlled diabet es, psoriasis, gout, kidney stones, bladder tumor-resected, COVID 2019 Social history: . No smoking. Alcohol rarely. Physical examination: VITAL SIGNS: 97.8, 52, 17, 161 with 79, 99% room air GENERAL: Reclining in bed, comfortable EYES: Pupils equal. Conjunctiva normal. HEENT: External appearance of nose and ears normal, oral cavity grossly normal. NECK: JVD not raised; masses not palpable. HEART: Irregular heart sounds; no edema. LUNGS: Respiratory rate normal; clear to auscultation. ABDOMEN: Soft, nontender, liver spleen not palpable, no masses palpable. Ramírez catheter-clear urine PSYCH: Alert and oriented x3; mood and affect normal. INVESTIGATIONS, reviewed in the clinical context: WBC 5.2 hemoglobin 7.7 platelets 276 potassium 3.9 creatinine 1.0 Admission labs: Creatinine 1.56 Hemoglobin 9 Assessment: -Acute hematuria from patient being on eliquis. Requiring bladder irrigation and blood clot removal by cystoscopy -Acute blood loss anemia secondary to hematuria -persistent atrial fibrillation controlled -eliquis currently discontinued. On Lopressor -GERD, use Pepcid as needed -Essential hypertension, continue Lopressor and amlodipine -Hyperlipidemia on Zocor -Prostate disorder -Diet controlled diabetes. uncontrolled with hyperglycemia from patient earlier received a dose of dexamethasone on presentation. 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 To be followed by Dr. Angeles -Moderate tricuspid regurgitation, nontraumatic -Hypertensive heart disease, beta bo -Acute kidney injury possibly from obstructive uropathy from blood clot improved creatinine was up to 1.56 down to 1 - lumbosacral junction DJD analgesics when necessary Patient to be discharged home as per urology. We'll follow with Dr. Angeles. Consuelo to be held for right now. Care was discussed with the patient. Thank you Dr. Angeles
== END 2020-07-10 15:04 | disposition home health service (06) | DRG 699 ==
LOC: EC 09:18 → 6NMEDSUR 13:31 → OBSVTOIN 07-06 12:27
PROVIDERS: ADMIT Urology; ATTEND Urology
PROC: 0T2BX0Z Change Drainage Device in Bladder, External Approach (ICD-10-PCS; principal; 2020-07-04)
DX: N32.89 Other specified disorders of bladder (principal); D68.32 Hemorrhagic disorder due to extrinsic circulating anticoagulants; D62 Acute posthemorrhagic anemia; I48.19 Other persistent atrial fibrillation; N17.9 Acute kidney failure, unspecified; N13.8 Other obstructive and reflux uropathy; C67.9 Malignant neoplasm of bladder, unspecified; I11.9 Hypertensive heart disease without heart failure; Z99.81 Dependence on supplemental oxygen; E11.65 Type 2 diabetes mellitus with hyperglycemia; Z20.822 Contact with and (suspected) exposure to COVID-19; R31.0 Gross hematuria; K59.00 Constipation, unspecified; K21.9 Gastro-esophageal reflux disease without esophagitis; E78.5 Hyperlipidemia, unspecified; M10.9 Gout, unspecified; L40.9 Psoriasis, unspecified; D72.829 Elevated white blood cell count, unspecified; E86.0 Dehydration; N40.1 Benign prostatic hyperplasia with lower urinary tract symptoms; R33.8 Other retention of urine; N28.1 Cyst of kidney, acquired; N20.0 Calculus of kidney; I07.1 Rheumatic tricuspid insufficiency; M47.817 Spondylosis without myelopathy or radiculopathy, lumbosacral region; T45.515A Adverse effect of anticoagulants, initial encounter; Z79.01 Long term (current) use of anticoagulants; Z79.899 Other long term (current) drug therapy; Z87.01 Personal history of pneumonia (recurrent); Z86.16 Personal history of COVID-19; Z87.442 Personal history of urinary calculi; Z98.890 Other specified postprocedural states; Z82.49 Family history of ischemic heart disease and other diseases of the circulatory system; Z83.3 Family history of diabetes mellitus
CPT/HCPCS: 36415; 74018; 76770; 80048; 80053; 82150; 83690; 85025; 85027; 85610; 85730; 87635; 94640; 94760; 96374; 96375; 96376; 99284; 99285

== ENCOUNTER → 2022-10-12 | Outpatient (CLI) | payer MEDICARE ==
[2022-10-12 15:56] LABS: African American GFR (CKD) 53 (>60 ml/min/1.73 sqM); Blood Urea Nitrogen 29 mg/dL (9-20); Non-African American GFR(CKD) 46 (>60 ml/min/1.73 sqM)
--- NOTE | 2022-10-13 10:50 | CT ---
EXAMINATION TYPE: CT urogram wo/w con DATE OF EXAM: 10/12/2022 COMPARISON: Prior CT May 31, 2020 HISTORY: MALIGNANT NEOPLASM OF BLADDER CT DLP: 1883.7 mGycm, Automated Exposure Control for Dose Reduction was Utilized. CONTRAST: CT scan of the abdomen and pelvis is performed without oral and without and with IV Contrast, patient injected with 80ml mL of Isovue 300. Urogram protocol with 3-D reconstructed images created on an in dependent workstation and reviewed. FINDINGS: LUNG BASES: There is at least moderate three-vessel coronary artery calcification redemonstrated. Th ere is calcification at level of the mitral valve redemonstrated. LIVER/GB: No significant abnormality is appreciated. PANCREAS: No significant abnormality is seen. SPLEEN: Occasional punctate calcifications throughout the spleen is redemonstrated consistent with pr oduct of old granulomatous disease. ADRENALS: No significant abnormality is seen. KUB: Noncontrast images show new 3 mm calculus lower pole level axial image 69. There is cortical thi nning bilaterally redemonstrated. Postcontrast images show symmetric cortical medullary uptake and ex cretion with 2 benign thin-walled cysts lower pole level right kidney measuring up to 4.6 cm long axi s axial image 63 series 4 redemonstrated. No concerning solid or cystic renal mass in the left kidney . There is adequate opacification of the bilateral distal ureters without intraluminal calculus. There is eccentric mucosal wall thickening or mass in the posterior wall of the bladder right of midline se en best sagittal series 23 image 85 measuring 2.4 cm craniocaudal dimension by 1.1 cm AP diameter. Th e lesion measures approximately 2.0 cm transversely axial image 75 series 11. BOWEL: Diverticula throughout the colon greatest in the sigmoid colon is redemonstrated. Small sized hiatal hernia is redemonstrated. No suspicious small or large bowel dilatation. PROSTATE/SEMINAL VESICLES: No gross abnormality seen. LYMPH NODES: No greater than 1cm abdominal or pelvic lymph nodes are appreciated. OSSEOUS STRUCTURES: Vacuum disc phenomenon with moderate disc space narrowing lumbosacral junction. OTHER: Mild/moderate calcified plaque of the aorta extends into branch vessels. IMPRESSION: Eccentric wall thickening or mass in the posterior right bladder wall consistent with kno wn neoplasm. No hydronephrosis or delayed excretion currently. No additional concerning masses or samson nopathy.
== END | disposition home or self-care (01) ==
LOC: RADCTMAIN 14:51
PROVIDERS: ATTEND Urology
DX: C67.9 Malignant neoplasm of bladder, unspecified (principal); N32.89 Other specified disorders of bladder
CPT/HCPCS: 82565; 84520; 74178; 36415; 74400; Q9967

== ENCOUNTER → 2023-08-31 | Outpatient (CLI) | payer MEDICARE ==
[2023-08-31 11:16] LABS: African American GFR (CKD) 51 (>60 ml/min/1.73 sqM); Blood Urea Nitrogen 32 mg/dL (9-20); Non-African American GFR(CKD) 44 (>60 ml/min/1.73 sqM)
--- NOTE | 2023-09-06 15:45 | CT ---
EXAMINATION TYPE: CT urogram wo/w con CT DLP: 3417 mGycm, Automated exposure control for dose reduction was used. DATE OF EXAM: 08/31/2023 12:25 PM COMPARISON: . CT urogram without/with contrast from 10/12/2022 CLINICAL INDICATION:Male, 73 years old with history of C67.9 MALIGNANT NEOPLASM OF BLADDER, UNSPECIFI ED; PHH, hx of bladder ca. TECHNIQUE: Urogram with imaging of the abdomen and pelvis. Coronal and sagittal reformats were performed. 2D and 3D reconstructions are performed to assist visualization of the urinary tract on a separate workstat ion. Contrast used:70ml mL of Isovue 370 without and with IV Contrast, Oral contrast used: None. FINDINGS: LOWER CHEST: Densely calcified hilar lymph nodes indicating healed granulomatous disease.. Densely c alcified mitral. Moderate calcific coronary artery atherosclerosis. GENITOURINARY: RIGHT KIDNEY AND URETER: No calculi. No hydronephrosis or hydroureter. No solid renal mass or other l esions. 4.4 cm right renal cyst appears simple and requires no follow-up. No urothelial lesions: no filling defect, dilation, stricture or wall thickening. LEFT KIDNEY AND URETER: No calculi. No hydronephrosis or hydroureter. No renal mass or other lesions. No urothelial lesions: no filling defect, dilation, stricture or wall thickening. URINARY BLADDER: There is adequate opacification of the bilateral distal ureters without intraluminal calculus. There is eccentric mucosal wall thickening or mass in the posterior wall of the bladder ri ght of midline seen best sagittal series 23 image 85 measuring 2.4 cm craniocaudal dimension by 1.1 c m AP diameter. The lesion measures approximately 2.0 cm transversely axial image 75 series 11. REPRODUCTIVE: Unremarkable. ABDOMEN LIVER: Unremarkable. GALLBLADDER AND BILE DUCTS: Unremarkable PANCREAS: Unremarkable. SPLEEN: Unremarkable. ADRENAL GLANDS: Unremarkable. STOMACH AND BOWEL: . No evidence of bowel obstruction. PERITONEUM: No evidence of pneumoperitoneum, free fluid, or adenopathy. VASCULATURE: No evidence of aortic aneurysm. MUSCULOSKELETAL: No acute osseous abnormalities LYMPH NODES: No gross evidence for lymphadenopathy. SOFT TISSUE/ABDOMINAL WALL: Unremarkable The 3-D images confirm the 2-D impressions IMPRESSION: 1. Eccentric wall thickening or mass in the posterior right bladder wall consistent with known neopla sm. No hydronephrosis or delayed excretion currently. Perhaps the appearance represents posttreatmen t change. Correlate with patient's history. Appearances are similar to the prior study of 10/12/2022. No additional concerning masses or adenopathy.
== END | disposition home or self-care (01) ==
LOC: RADCTMAIN 10:08
PROVIDERS: ATTEND Urology
DX: C67.9 Malignant neoplasm of bladder, unspecified (principal)
CPT/HCPCS: 82565; 84520; 74178; 36415; 74400; Q9967

== ENCOUNTER → 2024-07-03 | Outpatient (CLI) | payer MEDICARE ==
[2024-07-03 11:09] LABS: INR 0.9 (<1.2); Partial Thromboplastin Time 22.9 sec (22.0-30.0); Prothrombin Time 10.2 sec (10.0-12.5)
[2024-07-03 15:08] LABS: HCT 40.8 % (39.6-50.0); HGB 13.2 g/dL (13.0-17.0); MCH 31.4 pg (27.0-32.0); MCHC 32.4 g/dL (32.0-37.0); MCV 96.9 FL (80.0-97.0); NRBC Per 100 WBC 0 X 10*3/uL (0.00-0.01); Platelet Count 228 X 10*3/uL (140-440); RBC 4.21 X 10*6/uL (4.40-5.60); WBC 6.27 X 10*3/uL (4.50-10.00)
[2024-07-03 15:23] LABS: Appearance,Urine Clear (Clear); Bilirubin,Urine Negative (Negative); Blood,Urine Moderate (Negative); Color,Urine Yellow (Yellow); Ketones,Urine Negative (Negative); Nitrite,Urine Negative (Negative); PH, Urine 5.5; Urobilinogen,Urine 0.2 E.U./DL
[2024-07-03 15:28] LABS: ALT 29 U/L (10-49); AST 24 U/L (14-35); Albumin 4.8 g/dL (3.8-4.9); Albumin/Globulin Ratio 1.78 Ratio (1.60-3.17); Alkaline Phosphatase 131 U/L (41-126); BUN/Creat Ratio 14.79 Ratio (12.00-20.00); Blood Urea Nitrogen 20.7 mg/dL (9.0-27.0); Carbon Dioxide 26.8 mmol/L (21.6-31.8); Chloride 100 mmol/L (96-109); Globulin 2.7 g/dL (1.6-3.3); Glucose 143 mg/dL (70-110); Potassium 4.7 mmol/L (3.5-5.5); Sodium 140 mmol/L (135-145); Total Bilirubin 0.4 mg/dL (0.3-1.2); Total Protein 7.5 g/dL (6.2-8.2)
[2024-07-03 15:38] LABS: Bacteria,Urine None Seen (None Seen)
== END | disposition home or self-care (01) ==
LOC: LABWHC1 06-27 13:10
PROVIDERS: ATTEND Orthopaedic Surgery
DX: Z01.812 Encounter for preprocedural laboratory examination (principal); Z22.322 Carrier or suspected carrier of Methicillin resistant Staphylococcus aureus; M16.11 Unilateral primary osteoarthritis, right hip
CPT/HCPCS: 80053; 81001; 83036; 85027; 85610; 85730; 86850; 86900; 86901; 87070

== ENCOUNTER 2024-07-09 08:04 | Day surgery (SDC) | payer MEDICARE ==
[2024-07-04 09:40] VITALS: BMI 26.6
[~2024-07-09 08:04] MED LIST changes: -DEXAMETHASONE SOD PHOSPHATE 4 MG/ML 1 ML VIAL IV ONE; +MIDAZOLAM 2 MG/2 ML VIAL IV PRN; -ONDANSETRON 4 MG/2 ML VIAL IVP ONE; +TRANEXAMIC 1,000 MG/100ML-NACL 1,000 MG in SALINE 1 100ML.BAG IVPB PRN; +fentaNYL (PF) 50 MCG/ML 2 ML AMP IVP PRN
[2024-07-09] MEDS: IV FLUID CONTINUATION 1,000 ML IV ONE (08:28)
[2024-07-09 09:03] LABS: Glucose,Whole Blood 145 mg/dL (70-110)
[2024-07-09] MEDS: ACETAMINOPHEN TAB 500 MG TAB PO STA (09:05)
[2024-07-09] MEDS: DEXAMETHASONE SOD PHOSPHATE 4 MG/ML 1 ML VIAL IV ONE (09:05)
[2024-07-09] MEDS: MELOXICAM 7.5 MG TAB PO PRN (09:05)
[2024-07-09] MEDS: GABAPENTIN 300 MG CAP PO PRN (09:05)
[2024-07-09] MEDS: ONDANSETRON 4 MG/2 ML VIAL IVP ONE (09:06)
[2024-07-09] MEDS: MIDAZOLAM 2 MG/2 ML VIAL IVP ONE (09:19)
[2024-07-09] MEDS: fentaNYL (PF) 50 MCG/ML 2 ML AMP IVP ONE ×2 (09:19)
[2024-07-09] MEDS ORDERED: MIDAZOLAM 2 MG/2 ML VIAL ONE (09:52)
[2024-07-09] MEDS ORDERED: LIDOCAINE 1% INJ 10MG/ML (20 ML MDV) ONE (09:52)
[2024-07-09] MEDS ORDERED: GLYCOPYRROLATE 0.2 MG/ML 2 ML VIAL ONE (09:52)
[2024-07-09] MEDS ORDERED: SUCCINYLCHOLINE CHLORIDE 200 MG/10 ML VIAL IV ONE (09:52)
[2024-07-09] MEDS ORDERED: TRANEXAMIC 1,000 MG/100ML-NACL PREMIX BAG ONE (09:52)
[2024-07-09] MEDS ORDERED: fentaNYL (PF) 50 MCG/ML 2 ML AMP ONE (09:52)
[2024-07-09] MEDS ORDERED: DEXAMETHASONE SOD PHOSPHATE 4 MG/ML 1 ML VIAL ONE (09:52)
[2024-07-09] MEDS ORDERED: HYDROmorphone (PF) 1 MG/ML ONE (09:52)
[2024-07-09] MEDS ORDERED: PROPOFOL 10 MG/ML 20 ML VIAL IV ONE (09:52)
[2024-07-09] MEDS ORDERED: ePHEDrine 50 MG/ML 1 ML VIAL ONE (09:52)
[2024-07-09] MEDS ORDERED: NEOSTIGMINE 1 MG/ML 10 ML VIAL ONE (09:52)
[2024-07-09] MEDS ORDERED: ROPIVACAINE 5 MG/ML 30 ML VIAL ONE (09:52)
[2024-07-09] MEDS ORDERED: ROCURONIUM 10 MG/ML (5 ML VIAL) IV ONE (09:52)
[2024-07-09] MEDS: ROPIVACAINE 5 MG/ML 30 ML VIAL MISCELLANE ONE ×2 (10:16→11:02)
--- NOTE | 2024-07-09 10:53 | P.ANPRN ---
Procedure Note - Anesthesia - Nerve Block Performed Right Marcus Single Time Out Performed: Yes Date of Procedure: 07/09/24 Procedure Start Time: :18 Procedure Stop Time: :23 Location of Patient: PreOp Indication: Acute Post-Operative Pain, Requested by Surgeon Sedation Type: Sedate with meaningful contact maintained Preparation: Sterile Prep Position: Supine Needle Types: Pajunk Needle Gauge: 21 Ultrasound used to visualize needle placement: Yes Ultrasound used to observe medication spread: Yes Injectate: 0.5% Ropivacaine (see comment for volume) (30 mL +4 mg dexamethasone) Blood Aspirated: No Pain Paresthesia on Injection Noted: No Resistance on Injection: Normal Image Stored and Saved: Yes Events: Uneventful and Well Tolerated
[2024-07-09] MEDS: LACTATED RINGERS 1,000 ML IV ONE ×2 (11:07→14:05)
--- NOTE | 2024-07-09 11:08 | P.OP ---
Date of Procedure: 07/09/24 Preoperative Diagnosis: Severe osteoarthritis, right hip Postoperative Diagnosis: Severe osteoarthritis, right hip Procedure(s) Performed: Right total hip arthroplasty with a direct anterior approach Implants: [employer] Polarstem standard size 6 with a collar [employer] R3, 3 hole hemispherical acetabular shell, 52 mm [employer] Reflection 6.5 mm cancellus screws, 20 mm 2 [employer] R3, XLPE 20 acetabular liner [employer] Oxinium femoral head 36 mm, +0 All components were press-fit. The articulation is Oxinium on polyethylene. Anesthesia: GETA Surgeon: Smooth Fuentes Web Content Writer #1: Elvi Woodall Estimated Blood Loss (ml): 200 Pathology: none sent Condition: stable Disposition: PACU Indications for Procedure: After failure of conservative treatment we discussed the surgical and nons urgical treatment options at length. Patient wishes to proceed with a total hip arthroplasty with a direct anterior approach. Complications specific to this procedure were discussed at length, including but not limited to infection, leg length discrepancy, dislocation, nerve injury, and fracture. Covid-19 was also discussed at length with the patient, and they are aware of the current policies and procedures. The patient was given the option of delaying surgery, but they elect to proceed knowing these risks. Patient is aware of all these complications and informed consent was obtained Operative Findings: The operative findings are consistent with severe osteoarthritis of the right hip Description of Procedure: The patient was seen and evaluated in the preoperative area and the consent was reviewed. The operative site was marked with a skin marker. The patient verified the procedure and operative site. A GIDEON block was placed by anesthesia in the preoperative area. The patient was then brought to the operating room and given preoperative antibiotics intravenously. 1 g of Tranexamic acid was also given intravenously. A general anesthetic was administered by the anesthesia department. The patient was then placed on the [place] table with the bony prominences well-padded. The hip area was then prepped with a ChloraPrep solution and draped in the usual sterile fashion. A universal timeout was then performed, which confirmed the patient's name, surgical site, ALLERGIES, and procedure being performed on the consent. Next the incision site was located at 1 cm distal and 4 cm lateral to the anterior superior iliac spine. The skin and subcutaneous tissues were sharply incised. Incision was carefully dissected down to the fascia overlying the tensor fascia grace muscle. This fascia was then incised in line with the muscle fibers. Care was taken to stay laterally in order to avoid injuring the lateral femoral cutaneous nerve. Next, using blunt finger dissection, the tensor fascia grace muscle was dissected off its investing fascia. The muscle was then carefully retracted laterally with a cobra retractor over the lateral neck of the femur. Next, the circumflex vessels were identified and cauterized using the Aquamantis device. The anterior hip capsule was then exposed. The capsule was then opened and an inverted T fashion. The retractors were then placed intracapsularly. The retractors were maintained intracapsular throughout the procedure. The proximal femur was then visualized. Fluoroscopic x-rays were then taken in order to evaluate the preoperative leg lengths. A small amount of traction was placed on the leg. The femoral neck was then osteotomized at the appropriate level above the lesser trochanter. A small wedge of bone was then removed from the remaining femoral head. Next, using a corkscrew the femoral head was removed from the acetabulum. On gross visual inspection, the femoral head had complete loss of articular cartilage and multiple periarticular osteophytes. The femoral head was then measured. Attention was then turned to the acetabulum. The acetabulum was exposed and any remaining labrum was excised. Sequential reaming of the acetabulum was performed using fluoroscopic guidance until there was a good bed of bleeding cancellus bone. When the appropriate size was reached, a trial was then placed. The position and fit of the trial was checked with fluoroscopy. The trial was then removed. Then, using fluoroscopic guidance, the final implant was impacted at 20 of anteversion and 40 of abduction, and fully seated in the acetabulum. 2 screws were then placed in the acetabulum. Again fluoroscopy was used to check position of the screws. Next, the liner was then impacted, with a 20 elevated liner located in the anterior superior quadrant. Component locking was confirmed. Attention was then directed to the femur. With the aid of the [place] table, the femur was externally rotated to approximately 130, extended, and adducted under the opposite leg. A side hook was then placed under the proximal femur, and the side hook elevator was used to elevate the proximal femur while releasing the capsule. Retractors were then placed. A capsular release was performed, as well as a release of the conjoined tendon, which afforded excellent visualization of the proximal femur. Next, a box osteotome was used to lateralize the proximal femur. A hand singer was then used to locate the femoral canal. Sequential broaching was then performed with appropriate size which afforded excellent fixation in the proximal femur. A trial was then placed with appropriate head and neck, and the hip was gently reduced with the aid of the [place] table. Fluoroscopy was then used to check position of the components, as well as to evaluate the leg lengths and offset. The leg lengths and offset were measured as closely as possible to ensure stability of the hip. The hip was then gently dislocated and the trials were then removed. Final implants were then impacted and the hip was again reduced. Final fluoroscopic x-rays confirmed that the components were in anatomic position. The leg lengths and offset were measured and were found to coincide with the trial measurements. The hip was also taken through range of motion, and found to be stable. The hip was then copiously irrigated with antibiotic solution with pulsatile lavage. The hip was then irrigated with Irrisept solution. The soft tissues were then injected with a ropivacaine solution. A second dose of 1 g of Tranexamic acid was also given intravenously. The fascia was then closed with 2-0 strata fix suture. The subcutaneous tissue was closed with 3-0 Vicryl. The subcuticular tissue was closed with 3-0 moncryl suture. The skin was then closed with Exofin skin glue. After the glue and dried, and Optifoam silver impregnated dressing was applied. The patient was th en transferred to the recovery room in stable condition. The child care center assistant director KEVIN Jeffries was required due to the complexity of surgery, and the need for skilled surgical first assistant for positioning, draping, exposure, retraction, and closure of the wound.
[2024-07-09] MEDS ORDERED: NALOXONE 0.4 MG/ML 1 ML VIAL IV PRN (11:35)
[2024-07-09] MEDS ORDERED: ONDANSETRON 4 MG/2 ML VIAL IVP PRN (11:35)
[2024-07-09] MEDS ORDERED: MAGNESIUM HYDROXIDE 2,400 MG/30 ML CUP PO PRN (11:35)
[2024-07-09] MEDS ORDERED: HYDROmorphone 0.5 MG/0.5 ML SYRINGE IVP PRN ×3 (11:35)
[2024-07-09 12:07] LABS: Glucose,Whole Blood 170 mg/dL (70-110)
--- NOTE | 2024-07-09 13:35 | FL ---
EXAMINATION TYPE: FL guidance operating room, XR Hip Limited RT DATE OF EXAM: 07/09/2024 11:23 AM COMPARISON: Pre Operative Images if available both CT/MRI or plain film CLINICAL INDICATION: Male, 74 years old with history of Rt Hip-Ant; TECHNIQUE: FL guidance operating room, XR Hip Limited RT, multiple fluoroscopic images provided for p rocedure. DAP: 1.8195 mGym2 Gycm2 uGym2 cGycm2 or equivalent. FINDINGS: Fluoroscopic images during internal fixation/arthroplasty demonstrate hardware in appropriate positio n. Hardware appears intact. No immediate complication identified. IMPRESSION: 1. No evidence for intraoperative complication. 2. Please see the operative/procedural note for further details. [facility], , 07/09/2024 11:45 AM
[2024-07-09] MEDS: LACTATED RINGERS 1,000 ML IV SCH (14:34)
[2024-07-09 16:08] LABS: Glucose,Whole Blood 192 mg/dL (70-110)
[2024-07-09] MEDS ORDERED: DEXTROSE 50% SYRINGE 50 ML IVP PRN ×2 (16:57)
--- NOTE | 2024-07-09 16:57 | P.CONS ---
History of Present Illness - Reason for Consult Consult date: 07/09/24 - History of Present Illness Patient is a 74-year-old male with history of bladder cancer in remission, type 2 diabetes, hypertension, gout, dyslipidemia presenting for elective right total hip arthroplasty. Patient denies any chest pain, shortness of breath, abdominal pain, nausea, vomiting, urinary or bowel complaints. Temperature is 97.2, pulse 72, respiratory rate 18, blood pressure 161/87, saturating at 96% on 2 L. Last A1c was 7.6. Blood glucose range between 1 45-1 70. Pertinent positives and negatives as discussed in HPI, a complete review of systems was performed and all other systems are negative. Patient seen and examined at bedside. Vital signs reviewed General: nontoxic, no distress, appears at stated age Derm: warm, dry, dressing clean, dry, intact Head: atraumatic, normocephalic, symmetric Eyes: EOMI, no lid lag, anicteric sclera, pupils equal round reactive to light ENT: Nose and ears atraumatic Neck: No thyromegaly, supple Mouth: no lip lesion, mucus membranes moist Cardiovascular: S1S2 reg, no murmur, no edema Lungs: clear to auscultation bilateral, no rhonchi, no rales, no wheeze, no accessory muscle use Abdominal: soft, nontender to palpation, no guarding, no appreciable organom egaly Ext: no gross muscle atrophy, muscle strength muscle strength 5 out of 5 in all 4 extremities, no contractures Neuro: CN II-XII grossly intact Psych: Alert, oriented, appropriate affect Assessment/Plan: Active: Type 2 diabetes, A1c 7.6 -Sliding scale insulin, monitor for hypoglycemia Hypertension Continue amlodipine 10 mg daily, lisinopril 10 mg nightly, metoprolol 12.5 twice daily Dyslipidemia Continue simvastatin 20 nightly Gout -Continue allopurinol 300 nightly Status post right total hip arthroplasty -Pain control and DVT prophylaxis per orthopedic surgery -CBC, BMP pending for tomorrow Thank you for allowing us to participate in the care of this pleasant patient. Do not hesitate to contact us with questions. Someone can be reached from the [facility] hospitalist group all hours of the day at [phone] or via Friday. Past Medical History Past Medical History: Cancer, Diabetes Mellitus, GERD/Reflux, Hyperlipidemia, Hypertension, Pneumonia, Prostate Disorder, Skin Disorder Additional Past Medical History / Comment(s): DIET CONTROLLED DIABETIC NO MEDS DOES'NT CHECK BLOOD SUGARS.GOUT, PSORIASIS, kidney stones, frquent urination, bladder tumor History of Any Multi-Drug Resistant Organisms: None Reported Past Surgical History: Bladder Surgery, Heart Catheterization, Orthopedic Surgery Additional Past Surgical History / Comment(s): SHATTERED RT KNEE CAP HAD SX HAD WIRES IN THEN HAD 2ND SX NOT SURE IF ALL WIRES STILL IN THERE. heart cath 12/24/13 noted in EMR Past Anesthesia/Blood Transfusion Reactions: Postoperative Nausea & Vomiting (PONV) Past Psychological History: No Psychological Hx Reported Smoking Status: Never smoker Past Alcohol Use History: None Reported Past Drug Use History: None Reported - Past Family History Father Family Medical History: Coronary Artery Disease (CAD), Myocardial Infarction ( [place]) Additional Family Medical History / Comment(s): AGE 66 MASSIVE [place] Mother Family Medical History: No Reported History, Diabetes Mellitus Additional Family Medical History / Comment(s): covid 19 last thanksgiving Medications and Allergies Home Medications Medication Instructions Recorded Confirmed Type allopurinoL [Allopurinol] 300 mg PO HS 12/18/13 07/09/24 History Folic Acid 1 mg PO HS 08/17/16 07/09/24 History Simvastatin [Zocor] 20 mg PO HS 08/17/16 07/09/24 History Acetaminophen Tab [Tylenol] 650 mg PO Q6HR PRN tab 06/02/20 07/09/24 Rx Metoprolol Tartrate [Lopressor] 12.5 mg PO BID 06/30/20 07/09/24 History Albuterol Sulfate [Proair Hfa] 2 puff INHALATION RT-HS 07/04/20 07/09/24 History amLODIPine [Norvasc] 10 mg PO DAILY 07/04/20 07/09/24 History Celecoxib [CeleBREX] 200 mg PO QAM 07/04/24 07/09/24 History lisinopriL [Zestril] 10 mg PO HS 07/04/24 07/09/24 History Aspirin 325 mg PO BID #60 tab 07/09/24 Rx HYDROcodone/APAP 7.5-325MG [[place] 1 - 2 tab PO Q6H PRN #32 tab 07/09/24 Rx 7.5-325] Sennosides [Senokot] 2 tab PO DAILY PRN #60 tablet 07/09/24 Rx Allergies Allergy/AdvReac Type Severity Reaction Status Date / Time No Known Allergies Allergy Verified 07/09/24 08:35 Physical Exam Vitals: Vital Signs Temp Pulse Pulse Resp BP Pulse Ox 07/09/24 14:41 72 18 161/87 96 07/09/24 13:30 74 16 155/75 96 07/09/24 13:00 78 16 158/79 96 07/09/24 12:45 66 16 147/89 96 07/09/24 12:30 75 16 161/83 100 07/09/24 12:15 59 L 16 158/81 100 07/09/24 12:00 57 L 15 158/83 100 07/09/24 11:45 55 L 16 148/80 100 07/09/24 11:28 97.2 F L 64 16 155/81 100 07/09/24 09:33 52 L 16 115/65 95 07/09/24 08:48 98.4 F 67 16 162/79 93 L Intake and Output 07/09/24 07/09/24 07/09/24 06:59 14:59 22:59 Intake Total 1850 Output Total 200 Balance 1650 Intake: IV 1850 Output: Estimated Blood Loss 200 Other: Weight 73.8 kg Results Labs: Abnormal Lab Results - Last 24 Hours (Table) 07/09/24 07/09/24 Range/Units 09:01 12:06 POC Glucose (mg/dL) 145 H 170 H (70-110) mg/dL
[2024-07-09] MEDS: INSULIN LISPRO (HumaLOG) 100 UNIT/ML 10 mL VL SQ SCH (17:45)
[2024-07-09 19:45] LABS: Glucose,Whole Blood 182 mg/dL (70-110)
[2024-07-09] MEDS: SENNOSIDES-DOCUSATE SODIUM 1 EACH TAB PO SCH (21:25)
[2024-07-09] MEDS: METOPROLOL TARTRATE 12.5 MG TAB PO SCH (21:25)
[2024-07-09] MEDS: allopurinoL 300 MG TAB PO SCH (21:25)
[2024-07-09] MEDS: ASPIRIN 325 MG TAB PO SCH (21:25)
[2024-07-09] MEDS: ATORVASTATIN 10 MG TAB PO SCH (21:25)
[2024-07-09] MEDS: lisinopriL 10 MG TAB PO SCH (21:26)
[2024-07-09] MEDS: HYDROcodone/APAP 7.5-325MG 1 EACH TAB PO PRN (21:32)
[2024-07-10 01:33] VITALS: RESP 18
[2024-07-10 06:03] LABS: Glucose,Whole Blood 196 mg/dL (70-110)
[2024-07-10] MEDS: HYDROcodone/APAP 7.5-325MG 1 EACH TAB PO PRN (06:21)
[2024-07-10 07:23] VITALS: BP 133/67; PULSE 42; TEMP 98.5
--- NOTE | 2024-07-10 07:53 | P.DS ---
Providers Expected date of discharge: 07/10/24 Attending physician: Smooth Fuentes Consults: 07/09/24 11:35 Consult Physician Routine Consulting Provider: Joel Ponce Consult Reason/Comments: medical management Do you want consulting provider notified?: Yes Primary care physician: Harrison Horta - Discharge Diagnosis(es) (1) Primary osteoarthritis of right hip Current Visit: Yes Status: Acute (2) Status post total hip replacement, right Current Visit: Yes Status: Acute Hospital Course: This is a 74-year-old male with known history of degenerative arthritis of the right hip. The patient presents for evaluation. After discussion and co nsideration patient elects to proceed with total hip arthroplasty with direct anterior approach. The patient is seen preoperatively by primary care physician and cleared for surgery. Patient is admitted to [facility] on 07/09/2024 for total hip arthroplasty with direct anterior approach. The procedure is performed without complication or sequelae. The patient is doing well postoperatively. Labs and vital signs are stable on day of discharge. On day of discharge patient's hip incision is healing well. There is minimal erythema. There is no drainage noted at this time. There is minimal soft tissue swelling to the hip and thigh. Patient has full foot and ankle motion without difficulty or pain. Neurovascular status to the lower extremity is intact. Patient is discharged to home in good condition. Please see med rec for accurate list of home medications. Patient Condition at Discharge: Good Plan - Discharge Summary Discharge Rx Participant: Yes New Discharge Prescriptions: New Aspirin 325 mg PO BID #60 tab HYDROcodone/APAP 7.5-325MG [[place] 7.5-325] 1 - 2 tab PO Q6H PRN #32 tab PRN Reason: Pain Sennosides [Senokot] 2 tab PO DAILY PRN #60 tablet PRN Reason: Constipation No Action allopurinoL [Allopurinol] 300 mg PO HS Simvastatin [Zocor] 20 mg PO HS Folic Acid 1 mg PO HS Acetaminophen Tab [Tylenol] 650 mg PO Q6HR PRN tab PRN Reason: Fever And/ Or Pain Metoprolol Tartrate [Lopressor] 12.5 mg PO BID Albuterol Sulfate [Proair Hfa] 2 puff INHALATION RT-HS amLODIPine [Norvasc] 10 mg PO DAILY lisinopriL [Zestril] 10 mg PO HS Celecoxib [CeleBREX] 200 mg PO QAM Discharge Medication List allopurinoL [Allopurinol] 300 mg PO HS 12/18/13 [History] Folic Acid 1 mg PO HS 08/17/16 [History] Simvastatin [Zocor] 20 mg PO HS 08/17/16 [History] Acetaminophen Tab [Tylenol] 650 mg PO Q6HR PRN tab 06/02/20 [Rx] Metoprolol Tartrate [Lopressor] 12.5 mg PO BID 06/30/20 [History] Albuterol Sulfate [Proair Hfa] 2 puff INHALATION RT-HS 07/04/20 [History] amLODIPine [Norvasc] 10 mg PO DAILY 07/04/20 [History] Celecoxib [CeleBREX] 200 mg PO QAM 07/04/24 [History] lisinopriL [Zestril] 10 mg PO HS 07/04/24 [History] Aspirin 325 mg PO BID #60 tab 07/09/24 [Rx] HYDROcodone/APAP 7.5-325MG [[place] 7.5-325] 1 - 2 tab PO Q6H PRN #32 tab 07/09/24 [Rx] Sennosides [Senokot] 2 tab PO DAILY PRN #60 tablet 07/09/24 [Rx] Follow up Appointment(s)/Referral(s): [facility], [NON-STAFF] - 1-2 Days ([facility] will call you to schedule your in home physical therapy visits. ) Smooth Fuentes DO [Doctor of Osteopathic Medicine] - 2 Weeks Activity/Diet/Wound Care/Special Instructions: Weightbearing as tolerated with walker. Leave dressing intact. Dressing may be removed by home care nurse or by patient in 7 days. Then change dressing twice daily until follow up. May shower with initial dressing intact and after removal. If dressing become saturated, please remove. Please take aspirin 325mg twice daily for 30 days to prevent blood clots. Recommend use of compression stockings daily until follow up to help prevent swelling and blood clots. May remove at night before sleeping. Please follow-up with [facility] 2 weeks and call with any questions or concerns, . Discharge Disposition: HOME WITH HOME HEALTH SERVICES
[2024-07-10] MEDS: amLODIPine 10 MG TAB PO SCH (08:57)
[2024-07-10 09:24] LABS: Basophils # (A) 0.01 X 10*3/uL (0.00-0.10); Basophils % (A) 0.1 %; Eosinophils # (A) 0 X 10*3/uL (0.04-0.35); Eosinophils % (A) 0 %; HCT 32.8 % (39.6-50.0); HGB 10.9 g/dL (13.0-17.0); Lymphocytes # (A) 0.69 X 10*3/uL (0.90-5.00); Lymphocytes % (A) 8.8 %; MCH 31.6 pg (27.0-32.0); MCHC 33.2 g/dL (32.0-37.0); MCV 95.1 FL (80.0-97.0); Mean Platelet Volume 10.5 FL (9.5-12.2); Monocytes # (A) 0.49 X 10*3/uL (0.20-1.00); Monocytes % (A) 6.2 %; NRBC Per 100 WBC 0 X 10*3/uL (0.00-0.01); Neutrophils # (A) 6.67 X 10*3/uL (1.80-7.70); Neutrophils % (A) 84.6 %; Platelet Count 183 X 10*3/uL (140-440); RBC 3.45 X 10*6/uL (4.40-5.60); RDW 14.6 % (11.5-14.5); WBC 7.88 X 10*3/uL (4.50-10.00)
--- NOTE | 2024-07-10 09:31 | P.PN ---
Subjective Progress Note Date: 07/10/24 Subjective: Patient seen and examined at bedside. No acute events overnight. Pertinent positives and negatives as discussed above, a complete review of systems was performed and all other systems are negative. Vitals Signs Reviewed. General: Nontoxic, no distress, appears at stated age Derm: Warm, dry, dressing clean, dry, intact Head: Atraumatic, normocephalic, symmetric Eyes: EOMI, no lid lag, anicteric sclera Mouth: No lip lesion, mucus membranes moist Cardiovascular: S1S2 reg, no murmur Lungs: CTA bilateral, no rhonchi, no rales, no accessory muscle use Abdominal: Soft, nontender to palpation, no guarding, no appreciable organomegaly Ext: No gross muscle atrophy, no edema, no contractures Neuro: CN II-XI grossly intact, no focal neuro deficits Psych: Alert, oriented, appropriate affect Data Reviewed Today: Pertinent Labs: Hemoglobin 10.9, WBC 7.88, blood sugars range between 1 82-1 96 Imaging: No new imaging Assessment and Plan: Active: Type 2 diabetes, A1c 7.6 -Sliding scale insulin, monitor for hypoglycemia Hypertension Continue amlodipine 10 mg daily, lisinopril 10 mg nightly, metoprolol 12.5 twice daily Dyslipidemia Continue simvastatin 20 nightly Gout -Continue allopurinol 300 nightly Status post right total hip arthroplasty Acute blood loss anemia, anticipated outcome of surgery -Pain control and DVT prophylaxis per orthopedic surgery Patient is medically optimized for discharge Thank you for allowing us to participate in the care of this pleasant patient. Do not hesitate to contact us with questions. Someone can be reached from the [facility] hospitalist group all hours of the day at [phone] or via perfect serve. Objective - Vital Signs Vital signs: Vital Signs Temp 98.5 F 07/10/24 07:22 Pulse 42 L 07/10/24 07:22 Resp 18 07/10/24 07:22 BP 133/67 07/10/24 07:22 Pulse Ox 92 L 07/10/24 07:22 FiO2 Intake & Output 07/09/24 07/10/24 07/10/24 18:59 06:59 18:59 Intake Total 1850 Output Total 450 675 Balance 1400 -675 Weight 73.8 kg Intake: IV 1850 Output: Urine 250 675 Estimated Blood Loss 200 Other: Voiding Method Urinal # Voids 3 - Labs CBC & Chem 7: 07/10/24 05:23 Labs: Abnormal Lab Results - Last 24 Hours (Table) 07/09/24 07/09/24 07/09/24 Range/Units 12:06 16:02 19:44 RBC (4.40-5.60) X 10*6/uL Hgb (13.0-17.0) g/dL Hct (39.6-50.0) % RDW (11.5-14.5) % Lymphocytes # (0.90-5.00) X 10*3/uL Eosinophils # (0.04-0.35) X 10*3/uL POC Glucose (mg/dL) 170 H 192 H 182 H (70-110) mg/dL 07/10/24 07/10/24 Range/Units 05:23 06:02 RBC 3.45 L (4.40-5.60) X 10*6/uL Hgb 10.9 L (13.0-17.0) g/dL Hct 32.8 L (39.6-50.0) % RDW 14.6 H (11.5-14.5) % Lymphocytes # 0.69 L (0.90-5.00) X 10*3/uL Eosinophils # 0 L (0.04-0.35) X 10*3/uL POC Glucose (mg/dL) 196 H (70-110) mg/dL
[2024-07-10 09:33] LABS: BUN/Creat Ratio 16.07 Ratio (12.00-20.00); Blood Urea Nitrogen 22.5 mg/dL (9.0-27.0); Carbon Dioxide 24.8 mmol/L (21.6-31.8); Chloride 103 mmol/L (96-109); Glucose 209 mg/dL (70-110); Potassium 4.7 mmol/L (3.5-5.5); Sodium 139 mmol/L (135-145)
[2024-07-10 09:34] LABS: Calcium 8.9 mg/dL (8.7-10.3)
[2024-07-10 11:15] LABS: Glucose,Whole Blood 216 mg/dL (70-110)
== END 2024-07-10 13:04 | disposition home health service (06) ==
LOC: OR 08:04 → 4SSUR 11:28 → OR 07-10 13:04
PROVIDERS: ATTEND Orthopaedic Surgery
DX: M16.11 Unilateral primary osteoarthritis, right hip (principal); M87.051 Idiopathic aseptic necrosis of right femur; E11.9 Type 2 diabetes mellitus without complications; E78.5 Hyperlipidemia, unspecified; G89.18 Other acute postprocedural pain; I10 Essential (primary) hypertension; K21.9 Gastro-esophageal reflux disease without esophagitis; M10.9 Gout, unspecified; Z79.82 Long term (current) use of aspirin; Z79.899 Other long term (current) drug therapy; Z85.51 Personal history of malignant neoplasm of bladder; Z86.79 Personal history of other diseases of the circulatory system
CPT/HCPCS: 27130; 97161; 97535; 97165; 64999; 80048; 85025; 83036; 73501; C1776; J2250; J0330; J1100; J2710; J0690 ×2; J2405; J2003; J3010; J1171; J2795; J2704; J1596

== ENCOUNTER → 2024-09-18 | Outpatient (CLI) | payer MEDICARE ==
[2024-09-18 12:08] LABS: African American GFR (CKD) 54 (>60 ml/min/1.73 sqM); Blood Urea Nitrogen 30 mg/dL (9-20); Non-African American GFR(CKD) 47 (>60 ml/min/1.73 sqM)
--- NOTE | 2024-09-18 13:57 | CT ---
CT urogram. HISTORY: Follow-up bladder cancer. COMPARISON: 08/31/2023 TECHNIQUE: Multiple axial images are obtained through the abdomen and pelvis before and after the une ventful administration of nonionic IV contrast. Postcontrast delayed images were obtained according t o the urogram protocol. FINDINGS: Lung bases are clear. There is a small hiatal hernia. On the pre-IV contrast images, there are no renal calcifications or ureteral calcifications. There a re no gallstones. The gallbladder is normal and there is no distention or biliary ductal dilatation. There are no focal masses within the liver, pancreas, spleen or adrenal glands and there is no organo megaly. Kidneys excrete contrast promptly and symmetrically and there is no solid renal mass, hydronephrosis or filling defect within the renal collecting systems, ureters or urinary bladder. There is irregular ity of the right urinary bladder wall consistent with surgical resection of bladder cancer. Overall t he urinary bladder is unchanged and there is no new or recurrent abnormality. The bowel loops are normal in caliber and there is no dilatation or obstruction. No inflammatory lyman ges are identified in the bowel wall or mesentery. There is no free intraperitoneal air or fluid. There is no pelvic mass, free fluid, abscess or adenopathy. There is moderate diffuse osteopenia. There is interval development of a moderate compression fractur e of L2 and mild superior endplate compression fracture of L1. There is a prominent Schmorl's node in the inferior endplate of L3. There is a right hip prosthesis in satisfactory orientation. There is s table or slightly aggressive sclerosis and cyst formation in the left femoral head raising the questi on of avascular necrosis. IMPRESSION: 1. Postsurgical changes of the urinary bladder with no definite evidence of recurrent disease. 2. No evidence of metastatic disease within the abdomen or pelvis. 3. Small hiatal hernia. 4. 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 5. Development of compression fractures and lumbar spine as described above. Likely insufficiency fra ctures due to osteoporosis. [facility], , 09/18/2024 1:55 PM
== END | disposition home or self-care (01) ==
LOC: RADCTMAIN 11:15
PROVIDERS: ATTEND Urology
DX: C67.9 Malignant neoplasm of bladder, unspecified (principal); K44.9 Diaphragmatic hernia without obstruction or gangrene
CPT/HCPCS: 82565; 84520; 74178; 36415; 74400; Q9967